=== PATIENT | female | born 1980 | race Caucasian/White ===

== ENCOUNTER → 2016-07-13 | Outpatient (CLI) | payer BC ==
--- NOTE | 2016-07-16 08:22 | MM ---
Reason for exam: clinical finding. Baseline mammogram. History: Patient had first child at age 30. Family history of breast cancer in maternal grandmother. Taking hormonal contraceptives for 5 years beginning at age 30. Physical Findings: Nurse did not find any significant physical abnormalities on exam. MG 3D Diag Mammo W/Cad SHARITA Bilateral CC and MLO view(s) were taken. The breast tissue is heterogeneously dense. This may lower the sensitivity of mammography. There is no discrete abnormality. These results were verbally communicated with the patient and result sheet given to the patient on 07/13/16. ASSESSMENT: Negative, BI-RAD 1 RECOMMENDATION: Routine screening mammogram of both breasts at age 38. Back on schedule. Manage patient on a clinical basis.
== END | disposition home or self-care (01) ==
LOC: RADMAMWWP 13:49
PROVIDERS: ATTEND Family Medicine
DX: N64.52 Nipple discharge (principal)
CPT/HCPCS: G0204; G0279

== ENCOUNTER 2017-07-09 13:52 | Observation (INO) | payer BC ==
[2017-07-09 14:21] VITALS: BP 117/65; PULSE 88; RESP 18; TEMP 97.8
[2017-07-09] MEDS ORDERED: BUTORPHANOL 1 MG/ML 1 ML VIAL IV STA (14:43)
[2017-07-09] MEDS: LACTATED RINGERS 1,000 ML IV SCH ×3 (15:18→19:35)
[2017-07-09] MEDS ORDERED: PROMETHAZINE INJ 25 MG/ML 1 ML VIAL IM STA (16:15)
--- NOTE | 2017-07-09 17:24 | US ---
EXAMINATION TYPE: US kidneys/renal and bladder DATE OF EXAM: 07/09/2017 COMPARISON: KUB CLINICAL HISTORY: US for rt sided flank pain- ? kidney stone; severe right flank pain ; 33 weeks gest ation; prior bilateral renal stones per patient. EXAM MEASUREMENTS: Right Kidney: 11.7 x 7.0 x 6.3 cm Left Kidney: 11.1 x 4.5 x 5.3 cm Post Void Residual Volume: not assessed on patient in [facility] Right Kidney: multiple hyperechoic, shadowing stones seen throughout right kidney with largest at upp er pole = 1.1 x 1.0 x 0.6cm; mild , shadowing focus is noted in lower pole = 0.4 x 0.4 x 0.2cm Bladder: wnl; head of is noted at bladder level Bilateral Jets seen: no, only left ureteral jet was seen after 3 minutes observation IMPRESSION: Bilateral hydronephrosis of right greater than left. Right-sided nephrolithiasis.
[2017-07-09] MEDS ORDERED: NALOXONE 0.4 MG/ML 1 ML VIAL IV PRN (17:25)
[2017-07-09] MEDS: MORPHINE PCA 30 MG/30 ML SYRINGE IV PRN ×2 (18:09→23:26)
[2017-07-09 20:56] VITALS: BMI 27.2
[2017-07-10] MEDS: LACTATED RINGERS 1,000 ML IV SCH (05:26)
--- NOTE | 2017-07-10 08:40 | P.HPOB ---
History of Present Illness H&P Date: 07/10/17 Chief Complaint: Acute nephrolithiasis The patient is a 36-year-old 3 para 1011 admitted at 33-4/7 weeks as established by last menstrual period and confirmed by 6 week ultrasound. She is admitted with acute pain from nephrolithiasis carrying a history of previous episodes. She was seen in the office the day prior to presentation at which time she had some discomfort but the pain significantly increased overnight. As result she presented to the hospital. Attempts to control her pain in triage were unsuccessful and ultrasound did confirm the presence of stones in the ureter. As result, she was admitted for IV hydration aggressively as well as IV pain control. Her has otherwise been uncomplicated though she is in the category of advanced maternal age and had negative screening for trisomy. She additionally is a gestational diabetic and has had very good glycemic control with diet alone thus far. Obstetrical history: 3 para 1011 with 1 term vaginal delivery and one early elective interruption of . Current statistics are listed in history present illness. EDC of 08/23/2017 was established by last menstrual period and confirmed by 6 week ultrasound. Laboratory workup demonstrates a blood type of A+ with a negative antibody screen. Rubella status is immune. All other laboratory workup was within normal limits. Early Glucola was elevated but followed by a normal three-hour glucose tolerance test. Second trimester Glucola was also elevated but followed by an abnormal glucose tolerance test making the diagnosis of gestational diabetes. Clot history: Unremarkable with no history of any infections to include STDs. Review of Systems Review of systems is confined to history of present illness. Past Medical History Additional Past Medical History / Comment(s): Prior Kidney Stones History of Any Multi-Drug Resistant Organisms: None Reported Additional Past Surgical History / Comment(s): Kidney Stone Removed Past Anesthesia/Blood Transfusion Reactions: No Reported Reaction Past Psychological History: Anxiety, Depression Smoking Status: Never smoker Past Alcohol Use History: None Reported Past Drug Use History: None Reported - Past Family History Brother(s) Family Medical History: Cancer Father Family Medical History: Cancer Son(s) Family Medical History: Cancer Medications and Allergies Home Medications Medication Instructions Recorded Confirmed Type Magnesium 200 mg PO DAILY 06/14/17 07/09/17 History 114/Iron A-G/Folate 1 1 each PO DAILY 06/14/17 07/09/17 History [Prenate Elite Tablet] Allergies Allergy/AdvReac Type Severity Reaction Status Date / Time No Known Allergies Allergy Verified 07/09/17 14:12 Exam - Vital Signs Vital signs: Vital Signs Temp Pulse Resp BP Pulse Ox 07/09/17 14:14 97.8 F 88 18 117/65 100 Intake and Output 07/09/17 07/10/17 07/10/17 22:59 06:59 14:59 Output Total 400 300 Balance -400 -300 Output: Urine 400 300 Other: # Voids 1 1 Weight 67.585 kg In general, this is a well-developed, well-nourished white female in no current acute distress. Her heart has a regular rhythm and rate without murmur. Her lungs are clear to auscultation bilaterally in all segura. Her abdomen is gravid, nondistended, has normal active bowel sounds, is soft, nontender, without any palpable masses aside from the uterine fundus. Her extremities are without any cyanosis, clubbing, or edema and are nontender to palpation bilaterally. Her flanks currently have minimal pain bilaterally. Digital cervical examination is deferred. Assessment and Plan (1) 33 weeks gestation of Current Visit: Yes Status: Acute Code(s): Z3A.33 - 33 WEEKS GESTATION OF SNOMED Code(s): 05515697 (2) Ureteral calculus, left Current Visit: No Status: Acute Code(s): N20.1 - CALCULUS OF URETER SNOMED Code(s): 58160501 Plan: The patient had been admitted for aggressive rehydration with intravenous fluids. She additionally was given a SOCK DRIER for pain control. Several hours after admission, she did pass a stone which was caught with a strainer and her pain has significantly improved since that time. She is now able to tolerate a regular diet. She will likely be discharged home if she is able to be up and move around in usual fashion with adequate pain control using only oral pain medications.
--- NOTE | 2017-07-10 08:44 | P.DS ---
Providers Date of admission: 07/09/17 17:15 Expected date of discharge: 07/10/17 Attending physician: Prakash Perez Primary care physician: Stated None - Discharge Diagnosis(es) (1) 33 weeks gestation of Current Visit: Yes Status: Acute (2) Ureteral calculus, left Current Visit: No Status: Acute Hospital Course: The patient is a 36-year-old 3 para 1011 admitted at 33+ weeks by good dating parameters. She is admitted with acute left nephrolithiasis confirmed by ultrasound. She is admitted because her pain is significantly acute and cannot be controlled with simple all pain medications in triage. She was admitted and aggressively hydrated with the IV as well as given a PROFESSOR [employer] GENETICS for pain control. Later in the evening, approximately 4-5 hours after admission, she passed a roughly 4-5 mm stone and had immediate relief of her discomfort. She does still report some flank pain but significantly less so than before and is now tolerating oral medications as well as food. Given the resolution of her pain, she was deemed stable for discharge and therefore discharged home to follow-up in the office as previously scheduled. Discharge instructions included calling for any significantly increasing pain or any other concerns regarding the . She is otherwise to continue to have weekly nonstress test in the office given her gestational diabetes. She understood her instructions and agrees to follow up as noted above. Discharge medications included only continued vitamins during as well as over-the- counter analgesic pain medications. She was provided with a prescription for Tylenol No. 3, 1-2 by mouth every 6 hours when necessary pain, #20 dispensed with no refills. Procedures: #1. IV hydration #2. Renal ultrasound #3. IV pain control Patient Condition at Discharge: Stable Plan - Discharge Summary New Discharge Prescriptions: No Action 114/Iron A-G/Folate 1 [Prenate Elite Tablet] 1 each PO DAILY Magnesium 200 mg PO DAILY Discharge Medication List Magnesium 200 mg PO DAILY 06/14/17 [History] 114/Iron A-G/Folate 1 [Prenate Elite Tablet] 1 each PO DAILY 06/14/17 [ History] Discharge Disposition: HOME SELF-CARE
--- NOTE | 2017-07-10 13:31 | US ---
EXAMINATION TYPE: US OB BPP wo non-stress DATE OF EXAM: 07/10/2017 COMPARISON: NONE CLINICAL HISTORY: 36-year-old female with non reactive heart tones, nephrolithiasis, 33 07/15 wee ks. EXAM PERFORMED: Transabdominal (TA). Real-time scanning and assessment by the machine engineer. FINDINGS: BPP PARAMETERS: PRESENTATION: Vertex LIE: Longitudinal?? HEART RATE: 154 bpm RHYTHM: Normal CELINE: 13.4cm DIAPHRAGM IMAGED: yes BPP SCORIN. Breathin (1 episode of breathing of 30 second duration in 30 minutes of scanning time) 2. Movement: 2 (at least 3 discrete body movements in 30 minutes) 3. Tone: 2 (1 episode of active flexion/extension of limb) 4. CELINE: 2 (CELINE index > 5cm) TOTAL SCORE: 8 / 8 IMPRESSION: 1. Single live intrauterine , establish gestational age 33 weeks 5 days. No growth assessed. 2. BPP score 8 out of 8. 3. heart rate: 154 BPM.
== END 2017-07-10 14:30 | disposition home or self-care (01) ==
LOC: FBPOP 13:52 → 4FBP 17:15
PROVIDERS: ADMIT Obstetrics & Gynecology; ATTEND Obstetrics & Gynecology
DX: O26.833 Pregnancy related renal disease, third trimester (principal); N13.2 Hydronephrosis with renal and ureteral calculous obstruction; O24.410 Gestational diabetes mellitus in pregnancy, diet controlled; O99.343 Other mental disorders complicating pregnancy, third trimester; F32.9 Major depressive disorder, single episode, unspecified; F41.9 Anxiety disorder, unspecified; O09.523 Supervision of elderly multigravida, third trimester; Z3A.33 33 weeks gestation of pregnancy; Z79.899 Other long term (current) drug therapy; Z87.442 Personal history of urinary calculi; Z80.9 Family history of malignant neoplasm, unspecified
CPT/HCPCS: 59025; 96376; 99214; 96361 ×2; 96372; 96374; 96375; 76819; 76770; G0378 ×2; J2550; J0595; J2270

== ENCOUNTER 2017-08-16 06:00 | Inpatient (IN) | payer BC ==
[2017-08-16] MEDS ORDERED: CARBOPROST TROMETHAMINE 250 MCG/ML 1 ML AMP IM PRN (06:29)
[2017-08-16] MEDS ORDERED: LIDOCAINE 1% (PF) 10 MG/ML (30 ML SDV) SQ PRN (06:29)
[2017-08-16] MEDS ORDERED: OXYTOCIN 10 UNIT/ML 1 ML VIAL IM PRN (06:29)
[2017-08-16] MEDS ORDERED: TERBUTALINE 1 MG/ML VIAL SQ PRN (06:29)
[2017-08-16] MEDS ORDERED: METHYLERGONOVINE 0.2 MG/ML 1 ML AMP IM PRN (06:29)
[2017-08-16] MEDS ORDERED: OXYTOCIN 20 UNITS/1000 ML NS 1,000 ML IV SCH ×2 (06:30→21:00)
[2017-08-16 06:35] LABS: Glucose,Whole Blood 81 mg/dL (75-99)
[2017-08-16 06:46] LABS: Basophils % (A) 0 %; Eosinophils # (A) 0.1 k/uL (0-0.7); Eosinophils % (A) 1 %; HCT 39.9 % (34.0-46.0); HGB 13.8 gm/dL (11.4-16.0); Lymphocytes % (A) 22 %; MCH 30.2 pg (25.0-35.0); MCHC 34.6 g/dL (31.0-37.0); MCV 87.2 fL (80.0-100.0); Mean Platelet Volume 8.4; Monocytes # (A) 0.4 k/uL (0-1.0); Monocytes % (A) 4 %; Neutrophils # (A) 6.1 k/uL (1.3-7.7); Neutrophils % (A) 70 %; Platelet Count 158 k/uL (150-450); RBC 4.57 m/uL (3.80-5.40); WBC 8.7 k/uL (3.8-10.6)
[2017-08-16] MEDS: LACTATED RINGERS 1,000 ML IV SCH ×4 (06:48→20:13)
[2017-08-16] MEDS ORDERED: BUTORPHANOL 1 MG/ML 1 ML VIAL IV PRN (09:28)
--- NOTE | 2017-08-16 09:34 | P.HPOB ---
History of Present Illness H&P Date: 08/16/17 Chief Complaint: 39-0/7, LGA, elective induction The patient is a 36-year-old 3 para 1011 admitted at 39-0/7 weeks as established by last menstrual period and confirmed by 6 week ultrasound. She is admitted for elective induction with a large for gestational age fetus measuring at the 96th percentile, estimated weight of 8 pounds and 15 ounces 3 days ago. She is admitted for induction with Pitocin. Her has been complicated by gestational diabetes which was well controlled with diet alone and testing has been reassuring in the third trimester on a weekly basis. She otherwise falls into the category of advanced maternal age and underwent trisomy screening which was negative. Group B strep status is negative. Obstetrical history: 3 para 1011 with 1 previous term vaginal delivery without complications. She also had one early elective interruption of in the past. Current statistics are listed in history present illness. EDC of 08/23/2017 was established by last menstrual period and confirmed by 6 week ultrasound. Laboratory workup demonstrates a blood type of A+ with a negative antibody screen. Rubella status is immune. The remainder of the laboratory workup was within normal limits. Early Glucola was elevated but followed by a normal three-hour glucose tolerance test. Second trimester Glucola was elevated and followed by an abnormal three-hour glucose tolerance test making the diagnosis of gestational diabetes. Group B strep status is positive. Gynecologic history: Unremarkable with no history of any infections to include STDs. Review of Systems Review of systems is confined to history of present illness. Past Medical History Additional Past Medical History / Comment(s): Prior Kidney Stones History of Any Multi-Drug Resistant Organisms: None Reported Additional Past Surgical History / Comment(s): Kidney Stone Removed . wisdom teeth Past Anesthesia/Blood Transfusion Reactions: No Reported Reaction Past Psychological History: Anxiety, Depression Additional Psychological History / Comment(s): during son's illness, not currently Smoking Status: Never smoker Past Alcohol Use History: None Reported Past Drug Use History: None Reported - Past Family History Brother(s) Family Medical History: Cancer Additional Family Medical History / Comment(s): testicular Father Family Medical History: Cancer Additional Family Medical History / Comment(s): mesothelioma Son(s) Family Medical History: Cancer Additional Family Medical History / Comment(s): leukemia Medications and Allergies Home Medications Medication Instructions Recorded Confirmed Type Magnesium 200 mg PO DAILY 06/14/17 08/16/17 History 114/Iron A-G/Folate 1 1 each PO DAILY 06/14/17 08/16/17 History [Prenate Elite Tablet] Allergies Allergy/AdvReac Type Severity Reaction Status Date / Time No Known Allergies Allergy Verified 08/16/17 06:28 Exam - Vital Signs Vital signs: Vital Signs Temp Pulse Resp BP 08/16/17 06:33 97.9 F 91 16 134/80 Intake and Output 08/15/17 08/16/17 08/16/17 22:59 06:59 14:59 Other: Weight 69.4 kg In general, this is a well-developed, well-nourished white female in no acute distress. Her heart has a regular rhythm and rate without murmur. Her lungs are clear to auscultation bilaterally in all segura. Her abdomen is gravid, nondistended, has normal active bowel sounds, is soft, nontender, and without any palpable masses aside from the uterine fundus. Her extremities are without any cyanosis, clubbing, or edema and are nontender to palpation bilaterally. Digital cervical examination demonstrates her cervix to be 2 cm dilated, 50% effaced, the vertex in presentation at -3 station. Artificial rupture of membranes is carried out demonstrating clear fluid. Results Result Diagrams: 08/16/17 06:32 Assessment and Plan (1) Term Current Visit: Yes Status: Acute Code(s): Z34.80 - ENCOUNTER FOR SUPRVSN OF NORMAL , UNSP TRIMESTER SNOMED Code(s): 15891154 (2) Large for gestational age fetus Current Visit: Yes Status: Acute Code(s): RXK8040 - SNOMED Code(s): 621666013 (3) Gestational diabetes Current Visit: Yes Status: Acute Code(s): O24.419 - GESTATIONAL DIABETES MELLITUS IN , UNSP CONTROL SNOMED Code(s): 89585664 Plan: The patient is admitted for elective induction as noted above. Pitocin augmentation has been started and artificial rupture of membranes performed. She will have close maternal and surveillance and expectant management will be practiced. She is a good candidate for either IV or epidural analgesia. She is aware of the slightly increased risk for delivery under the circumstances of elective induction.
[2017-08-16] MEDS ORDERED: SODIUM CHLORIDE 0.9% 100 ML BAG ONE (10:40)
[2017-08-16] MEDS ORDERED: BUPIVACAINE (PF) 0.25% 30 ML VIAL ONE (10:40)
[2017-08-16] MEDS ORDERED: fentaNYL (PF) 50 MCG/ML 5 ML AMP ONE (10:40)
[2017-08-16] MEDS ORDERED: diphenhydrAMINE 50 MG CAP PO PRN (20:55)
[2017-08-16] MEDS ORDERED: LANOLIN CREAM 5 GM TUBE TOPICAL PRN (20:55)
[2017-08-16] MEDS ORDERED: diphenhydrAMINE 25 MG CAP PO PRN (20:55)
[2017-08-16] MEDS ORDERED: SIMETHICONE 80 MG CHEWABLE PO PRN (20:55)
[2017-08-16] MEDS ORDERED: WITCH HAZEL 1 EACH MED..PAD TOPICAL PRN (20:55)
[2017-08-16] MEDS ORDERED: ZOLPIDEM 5 MG TAB PO PRN (20:55)
[2017-08-16] MEDS ORDERED: diphenhydrAMINE 50 MG/ML 1 ML VIAL IVP PRN ×2 (20:55)
[2017-08-16] MEDS ORDERED: BENZOCAINE/MENTHOL SPRAY 1 GM/SPRAY AEROSOL TOPICAL PRN (20:55)
[2017-08-16] MEDS ORDERED: HYDROCORTISONE 2.5% RECTAL CREAM 30 GM TUBE RECTAL PRN (20:55)
--- NOTE | 2017-08-16 21:00 | P.PROBDLV ---
Vaginal Delivery Note - . Vaginal Delivery Note: The patient is a 36-year-old 3 para 1011 admitted at 39-0/7 weeks by good dating parameters. She is admitted for elective induction of labor secondary to gestational diabetes and macrosomia with an estimated weight of 8 lbs. 15 oz. 3 days ago. Her has been complicated only by the gestational diabetes for which she has had reassuring weekly testing since 32 weeks.. She also fell into the category of advanced maternal age and underwent trisomy screening which was negative. On labor and delivery, she had Pitocin augmentation started and underwent artificial rupture of membranes. She had an epidural catheter placed for analgesia just before reaching 4 synovators of dilation. She made slow progress through the latent phase and then remained at 4 cm for a number of hours after which time she progressed very quickly to complete and +2 station. She pushed over the course of approximately 5 minutes to a normal spontaneous vaginal delivery of a viable 8 lbs. 3 oz. baby girl with Apgars of 9 at 1 minute and 9 at 5 minutes delivered in the right occiput anterior position. There was a nuchal cord 1 which was reduced following delivery of the . The placenta was delivered spontaneously, intact, and grossly normal with a grossly normal, centrally inserted three-vessel cord. There was a second-degree midline perineal laceration over the site of a previous laceration which was repaired in standard fashion using 3-0 chromic catgut without difficulty. Estimated blood loss for the case was approximately 250 mL. There were no complications. All sponge, instrument, and needle counts were correct. Both mother and infant are resting comfortably in recovery.
[2017-08-16] MEDS: IBUPROFEN 600 MG TAB PO PRN (21:08)
[2017-08-17] MEDS: ACETAMINOPHEN TAB 325 MG TAB PO PRN ×2 (00:44→09:17)
[2017-08-17] MEDS: IBUPROFEN 600 MG TAB PO PRN ×3 (04:46→20:33)
[2017-08-17] MEDS: SENNOSIDES-DOCUSATE SODIUM 1 EACH TAB PO SCH ×2 (09:18→20:34)
--- NOTE | 2017-08-17 10:05 | P.PNOBGVD ---
Subjective - Subjective Interval history: Bleeding still continues moderately. Patient reports: Reports appetite normal, Reports voiding normally, Reports pain well controlled, Reports ambulating normally : doing well Objective - Latest Vital Signs Latest vital signs: Vital Signs Temp Pulse Resp BP 08/17/17 09:00 98.1 F 88 17 104/61 08/17/17 04:20 98.8 F 100 16 125/70 08/17/17 00:00 98.8 F 88 16 124/74 08/16/17 22:40 97.7 F 108 H 16 132/69 08/16/17 22:10 105 H 16 142/73 08/16/17 21:40 93 16 137/66 08/16/17 21:25 100 16 142/63 08/16/17 21:10 100 16 134/60 08/16/17 20:55 104 H 16 142/63 08/16/17 20:40 98.1 F 97 16 133/59 Intake and Output 08/16/17 08/17/17 08/17/17 22:59 06:59 14:59 Intake Total 36.55 600 Balance 36.55 600 Intake: Intake, IV Titration 36.55 Amount Oxytocin 20 Units/1000 ml 36.55 Ns 1,000 ml @ 1 MILLIUNIT/MIN 3 mls/hr IV .Q24H [facility] Rx#:[id number] Other 600 - Exam Extremities: Present: normal Abdomen: Present: normal appearance, soft Uterus: Present: normal, firm (The uterine fundus as tonic and nontender around the umbilicus.) Assessment and Plan (1) Term Current Visit: Yes Status: Acute Code(s): Z34.80 - ENCOUNTER FOR SUPRVSN OF NORMAL , UNSP TRIMESTER SNOMED Code(s): 96180745 (2) Large for gestational age fetus Current Visit: Yes Status: Acute Code(s): ATH0077 - SNOMED Code(s): 117431951 (3) Gestational diabetes Current Visit: Yes Status: Acute Code(s): O24.419 - GESTATIONAL DIABETES MELLITUS IN , UNSP CONTROL SNOMED Code(s): 31592817 (4) Normal spontaneous vaginal delivery Current Visit: Yes Status: Acute Code(s): O80 - ENCOUNTER FOR FULL-TERM UNCOMPLICATED DELIVERY SNOMED Code(s): 79235438 Plan: Continue routine care. I anticipate discharge home tomorrow pending no complications.
[2017-08-17] MEDS: HYDROcodone/APAP 5-325MG 1 EACH TAB PO PRN ×2 (15:45→23:53)
[2017-08-18] MEDS: IBUPROFEN 600 MG TAB PO PRN ×2 (02:06→10:04)
[2017-08-18] MEDS: SENNOSIDES-DOCUSATE SODIUM 1 EACH TAB PO SCH (09:23)
[2017-08-18 09:30] VITALS: BP 127/77; PULSE 75; RESP 17; TEMP 98.3
--- NOTE | 2017-08-18 11:54 | P.DS ---
Providers Date of admission: 08/16/17 06:17 Expected date of discharge: 08/18/17 Attending physician: Prakash Perez Primary care physician: Stefan Mosquera - Discharge Diagnosis(es) (1) Term Current Visit: Yes Status: Acute (2) Large for gestational age fetus Current Visit: Yes Status: Acute (3) Gestational diabetes Current Visit: Yes Status: Acute (4) Normal spontaneous vaginal delivery Current Visit: Yes Status: Acute Hospital Course: The patient is a 36-year-old 3 para 1011 admitted at 39-0/7 weeks by good dating parameters for an elective induction secondary to large for gestational age fetus along with gestational diabetes. Blood sugars were well- controlled throughout the with diet alone and testing was reassuring throughout. She also fell into the category of advanced maternal age and had a trisomy screening which was negative early in the . On labor and delivery, she had Pitocin started followed by artificial rupture of membranes for clear fluid. She made slow progress through the latent and early active phase of labor with an epidural catheter in place for analgesia. I was some position changes she then made rapid progress to the active phase to complete and +2 station. She pushed quickly to a normal spontaneous vaginal delivery of a viable 8 lbs. 3 oz. baby girl with Apgars of 9 at 1 minute and 9 at 5 minutes. Her course was unremarkable with vital signs remaining stable and her temperature was afebrile throughout. She was deemed stable for discharge on day #2 was discharged home to follow-up in the office in 6 weeks' time routinely. Discharge instructions included calling for any significantly increased bleeding or foul-smelling lochia, significantly increased fever or abdominal pain, perineal complaints, breast complaints, or anything else that concerned her. She was additionally instructed to have nothing in the vagina for at least 6 weeks time to include intercourse. She understood her instructions and agrees to follow-up in 6 weeks' time as noted above. Discharge medications included continued vitamins as she has opted to breast-feed. She was otherwise provided with a prescription for [place] 5/325 mg, 1 by mouth every 4-6 hours when necessary pain, #12 dispensed with no refills. Maternal blood type is A+ and rubella status is immune. Procedures: #1. Pitocin induction #2. Artificial rupture of membranes #3. Epidural analgesia #4. Normal spontaneous vaginal delivery #5. Repair of perineal laceration Patient Condition at Discharge: Good Plan - Discharge Summary New Discharge Prescriptions: No Action 114/Iron A-G/Folate 1 [Prenate Elite Tablet] 1 each PO DAILY Magnesium 200 mg PO DAILY Discharge Medication List Magnesium 200 mg PO DAILY 06/14/17 [History] 114/Iron A-G/Folate 1 [Prenate Elite Tablet] 1 each PO DAILY 06/14/17 [ History] Follow up Appointment(s)/Referral(s): Prakash Perez MD [STAFF PHYSICIAN] - 6 Weeks Discharge Disposition: HOME SELF-CARE
== END 2017-08-18 14:15 | disposition home or self-care (01) | DRG 775 ==
LOC: 4FBP 06:17
PROVIDERS: ADMIT Obstetrics & Gynecology; ATTEND Obstetrics & Gynecology
PROC: 3E0R3NZ Introduction of Analgesics, Hypnotics, Sedatives into Spinal Canal, Percutaneous Approach (ICD-10-PCS; principal; 2017-08-16)
PROC: 10907ZC Drainage of Amniotic Fluid, Therapeutic from Products of Conception, Via Natural or Artificial Opening (ICD-10-PCS; principal; 2017-08-16)
PROC: 00HU33Z Insertion of Infusion Device into Spinal Canal, Percutaneous Approach (ICD-10-PCS; principal; 2017-08-16)
PROC: 10E0XZZ Delivery of Products of Conception, External Approach (ICD-10-PCS; principal; 2017-08-16)
PROC: 0KQM0ZZ Repair Perineum Muscle, Open Approach (ICD-10-PCS; principal; 2017-08-16)
PROC: 3E033VJ Introduction of Other Hormone into Peripheral Vein, Percutaneous Approach (ICD-10-PCS; principal; 2017-08-16)
DX: O36.63X0 Maternal care for excessive fetal growth, third trimester, not applicable or unspecified (principal); O24.420 Gestational diabetes mellitus in childbirth, diet controlled; O69.81X0 Labor and delivery complicated by cord around neck, without compression, not applicable or unspecified; O70.1 Second degree perineal laceration during delivery; Z37.0 Single live birth; Z3A.39 39 weeks gestation of pregnancy; Z87.442 Personal history of urinary calculi; Z80.6 Family history of leukemia
CPT/HCPCS: 85025; 88307

== ENCOUNTER → 2017-10-22 | Outpatient (CLI) | payer BC ==
--- NOTE | 2017-10-22 12:53 | XR ---
EXAMINATION TYPE: XR KUB DATE OF EXAM: 10/22/2017 HISTORY: Pain Comparison: None.Single KUB is submitted for interpretation. Findings: Right renal calculi: Multiple right-sided renal calculi the largest is noted within the upper pole me asuring 9.5 mm. Additional smaller calculi ranging in size from several millimeters up to 3.5 mm. Right ureteral calculi: None Visualized. Left renal calculi: None Visualized. Left ureteral calculi: None Visualized. Pelvic calcifications: None Visualized. Bowel gas pattern is unremarkable. No free air. No mass effects. IMPRESSION: 1. Multiple right-sided renal calculi.
== END | disposition home or self-care (01) ==
LOC: RADXRMAIN 12:26
PROVIDERS: ATTEND Urology
DX: N20.0 Calculus of kidney (principal)
CPT/HCPCS: 74018

== ENCOUNTER → 2017-12-20 | Outpatient (CLI) | payer BC ==
[2017-12-20 11:19] LABS: Basophils % (A) 0 %; Eosinophils # (A) 0.1 k/uL (0-0.7); Eosinophils % (A) 2 %; HCT 44.9 % (34.0-46.0); HGB 14.9 gm/dL (11.4-16.0); Lymphocytes # (A) 1.5 k/uL (1.0-4.8); Lymphocytes % (A) 30 %; MCH 29.3 pg (25.0-35.0); MCHC 33.3 g/dL (31.0-37.0); MCV 88.2 fL (80.0-100.0); Mean Platelet Volume 6.9; Monocytes # (A) 0.2 k/uL (0-1.0); Monocytes % (A) 5 %; Neutrophils % (A) 61 %; Platelet Count 279 k/uL (150-450); RBC 5.09 m/uL (3.80-5.40); RDW 14.3 % (11.5-15.5); WBC 4.9 k/uL (3.8-10.6)
[2017-12-20 11:53] LABS: Potassium 4.6 mmol/L (3.5-5.1)
== END | disposition home or self-care (01) ==
LOC: LABPAT 10:39
PROVIDERS: ATTEND Urology
DX: N20.0 Calculus of kidney (principal)
CPT/HCPCS: 36415; 80051; 82565; 84520; 85025

== ENCOUNTER 2017-12-23 08:17 | Day surgery (SDC) | payer BC ==
[2017-12-17 13:37] VITALS: BMI 23.2
--- NOTE | 2017-12-22 20:19 | P.GSHP ---
History of Present Illness H&P Date: 12/22/17 37 yo femal with right renal stones[8and 4 mm] who comes for eswl SHe recently tao had a cystitis and is on medication The stones dont appear to be infected. She comes for eswl right - Constitutional Constitutional: Denies chills, Denies fever - EENT Eyes: denies blurred vision, denies pain Ears, nose, mouth and throat: Denies headache, Denies sore throat - Cardiovascular Cardiovascular: Denies chest pain, Denies shortness of breath - Respiratory Respiratory: Denies cough, Denies 7 - Gastrointestinal Gastrointestinal: Denies abdominal pain, Denies diarrhea, Denies nausea, Denies vomiting - Genitourinary (Female) Genitourinary: Denies dysuria, Denies hematuria - Genitourinary (Male) Genitourinary: Denies dysuria, Denies hematuria - Musculoskeletal Musculoskeletal: Denies myalgias - Integumentary Integumentary: Denies pruritus, Denies rash - Neurological Neurological: Denies numbness, Denies weakness - Psychiatric Psychiatric: Denies anxiety, Denies depression - Endocrine Endocrine: Denies fatigue, Denies weight change Past Medical History Additional Past Medical History / Comment(s): Kidney Stones, current "bladder infection" with antibiotic tx History of Any Multi-Drug Resistant Organisms: None Reported Additional Past Surgical History / Comment(s): Kidney Stone Removed , lithotripsy. wisdom teeth Past Anesthesia/Blood Transfusion Reactions: No Reported Reaction Smoking Status: Never smoker - Past Family History Brother(s) Family Medical History: Cancer Additional Family Medical History / Comment(s): testicular Father Family Medical History: Cancer Additional Family Medical History / Comment(s): mesothelioma Son(s) Family Medical History: Cancer Additional Family Medical History / Comment(s): leukemia Medications and Allergies Home Medications Medication Instructions Recorded Confirmed Type 114/Iron A-G/Folate 1 1 each PO DAILY 06/14/17 12/17/17 History [Prenate Elite Tablet] Sharovel ( Control) 1 tab PO DAILY 12/17/17 12/17/17 History Sulfamethox-Tmp 800-160Mg [Bactrim 1 tab PO Q12HR 12/17/17 12/17/17 History DS 800-160 mg] Allergies Allergy/AdvReac Type Severity Reaction Status Date / Time No Known Allergies Allergy Verified 12/17/17 13:24 Surgical - Exam - General well developed, well nourished, no distress - ENT no hearing loss - Neck trachea midline - Respiratory normal expansion, normal respiratory effort - Cardiovascular Rhythm: regular - Abdomen Abdomen: soft, non tender - Integumentary no rash, no growths - Neurologic normal coordination, normal sensation - Musculoskeletal normal gait, normal posture - Psychiatric oriented to time, oriented to person, oriented to place, speech is normal, memory intact Assessment and Plan Assessment: Impression: Rightrenal calculi PlN : ESWL RIGHT
[~2017-12-23 08:17] MED LIST: LACTATED RINGERS 1,000 ML IV SCH; LIDOCAINE 1% 20 ML VIAL (10MG/ML) FOR IV START INTRADERMA PRN; Pre Op ABX Message 1 EACH MISC MISCELLANE ONE
[2017-12-23 08:52] VITALS: TEMP 98.5
[2017-12-23] MEDS ORDERED: ONDANSETRON 4 MG/2 ML VIAL IVP ONE (09:07)
[2017-12-23] MEDS ORDERED: DEXAMETHASONE SOD PHOSPHATE 10 MG/ML 1 ML VIAL IV ONE (09:07)
--- NOTE | 2017-12-23 09:21 | XR ---
EXAMINATION TYPE: XR KUB DATE OF EXAM: 12/23/2017 CLINICAL DATA: 37-year-old female preop lithotripsy for right kidney stone, [facility] COMPARISON: 10/22/2017 FINDINGS: Lung bases are clear. Supine imaging limited for assessment of free intraperitoneal air. Nonobstructive bowel gas pattern. Mild stool burden. Phleboliths redemonstrated in the pelvis. There are 2 calcifications in the right mid abdomen, unchan ged from 10/22/2017 measuring 1 cm and 3 mm. Possible 3 mm calcification left mid abdomen. IMPRESSION: Stable right-sided renal calculi measuring up to 1 cm. Possible 3 mm left renal calculus.
[2017-12-23] MEDS ORDERED: fentaNYL (PF) 50 MCG/ML 2 ML AMP ONE (09:28)
[2017-12-23] MEDS ORDERED: PROPOFOL 10 MG/ML 20 ML VIAL IV ONE (09:28)
[2017-12-23] MEDS ORDERED: MIDAZOLAM 2 MG/2 ML VIAL ONE (09:28)
--- NOTE | 2017-12-23 10:12 | P.OP ---
Date of Procedure: 12/23/17 Preoperative Diagnosis: Right renal calculus Postoperative Diagnosis: Right renal calculus Procedure(s) Performed: Extracorporal shock wave lithotripsy Anesthesia: MAC Surgeon: Charles Moreno Estimated Blood Loss (ml): 0 Pathology: none sent Condition: stable Disposition: PACU Indications for Procedure: The patient is a 37 year old female with urolithiasis who was noted to have two right renal calculi measuriing 8x10 and 4x4 mm on renal ultrasound and KUB. Treatment options were reviewed with Dr Fox and ESWL has been chosen. Description of Procedure: The patient was taken to the fluoroscopy suite and placed in the supine position on the fluoroscopy table. The 8x10 mm calculus which was located in the right renal pelvis was localized with biplanar fluoroscopy. Intravenous sedation was given. Lithotripsy was performed with the [employer] Compact Delta II unit. A two minute pause was taken after 200 shocks. The patient received 2500 shockes at level 4 at a rate of 80 shocks/minute. There appeared to be fragmentation of the calculus. The anesthesia was reversed and the patient was taken to the recovery room in satisfactory condition. She will see Dr Fox in 2 weeks at which time a KUB will be performed.
[2017-12-23] MEDS ORDERED: LACTATED RINGERS 1,000 ML IV ONE (10:16)
[2017-12-23 10:23] VITALS: RESP 18
[2017-12-23] MEDS ORDERED: HYDROcodone/APAP 5-325MG 1 EACH TAB PO ONE (10:42)
[2017-12-23 10:50] VITALS: BP 106/69; PULSE 69
== END 2017-12-23 11:30 | disposition home or self-care (01) ==
LOC: ORWHC2ENDO 08:17
PROVIDERS: ATTEND Urology
DX: N20.0 Calculus of kidney (principal); N30.90 Cystitis, unspecified without hematuria; Z79.2 Long term (current) use of antibiotics; Z79.3 Long term (current) use of hormonal contraceptives
CPT/HCPCS: 81025; 74018; 50590; J2250; J1100; J2405; J3010; J2704

== ENCOUNTER → 2017-12-30 | Outpatient (CLI) | payer BC ==
--- NOTE | 2017-12-30 09:35 | XR ---
EXAMINATION TYPE: XR abdomen 1V DATE OF EXAM: 12/30/2017 HISTORY: Pain Comparison: 12/23/2017 Single KUB is submitted for interpretation. Findings: Right renal calculi: Previously noted right renal calculus measuring approximately 1 cm is no longer visualized. Overlying bowel content does limit evaluation. There appear to be fragmented calculi dist al right ureter measuring up to 4 mm. Right ureteral calculi: None Visualized. Left renal calculi: None Visualized. Left ureteral calculi: None Visualized. Pelvic calcifications: None Visualized. Bowel gas pattern is unremarkable. No free air. No mass effects. IMPRESSION: 1. Previously noted right renal calculus measuring approximately 1 cm is no longer visualized. [place] ing bowel content does limit evaluation. There appear to be fragmented calculi distal right ureter me asuring up to 4 mm.
== END | disposition home or self-care (01) ==
LOC: RADXRMAIN 09:13
PROVIDERS: ATTEND Urology
DX: N20.0 Calculus of kidney (principal)
CPT/HCPCS: 74018

== ENCOUNTER → 2018-01-14 | Outpatient (CLI) | payer BC ==
--- NOTE | 2018-01-14 12:54 | XR ---
EXAMINATION TYPE: XR abdomen 1V DATE OF EXAM: 01/14/2018 COMPARISON: 12/30/2017 INDICATION: Right ureteral stoner TECHNIQUE: Single view abdomen frontal projection FINDINGS: There is a normal bowel gas pattern. Psoas margins are normal. No organomegaly is present. A 0.5 cm calcification in the right hemipelvis appears stable in position. IMPRESSION: 1. Right hemipelvis distal ureteral stone suspected.
== END | disposition home or self-care (01) ==
LOC: RADXRMAIN 12:31
PROVIDERS: ATTEND Urology
DX: N20.1 Calculus of ureter (principal)
CPT/HCPCS: 74018

== ENCOUNTER 2019-07-09 06:15 | Inpatient (IN) | payer BC ==
[2019-07-09] MEDS ORDERED: OXYTOCIN 30 UNITS/500 ML NS 30 UNIT in SALINE 1 500ML.BAG IV SCH (06:45)
[2019-07-09] MEDS ORDERED: TERBUTALINE 1 MG/ML VIAL SQ PRN (06:45)
[2019-07-09] MEDS ORDERED: LIDOCAINE 0.5% (PF) 5 MG/ML (50 ML SDV) SQ PRN (06:45)
[2019-07-09] MEDS ORDERED: CARBOPROST TROMETHAMINE 250 MCG/ML 1 ML AMP IM PRN (06:45)
[2019-07-09] MEDS ORDERED: OXYTOCIN 10 UNIT/ML 1 ML VIAL IM PRN (06:45)
[2019-07-09] MEDS ORDERED: METHYLERGONOVINE 0.2 MG/ML 1 ML AMP IM PRN (06:45)
[2019-07-09] MEDS: LACTATED RINGERS 1,000 ML IV SCH ×3 (07:00→12:50)
[2019-07-09 07:25] LABS: Basophils % (A) 0 %; Eosinophils # (A) 0.1 k/uL (0-0.7); Eosinophils % (A) 1 %; HCT 41.4 % (34.0-46.0); Lymphocytes # (A) 2.4 k/uL (1.0-4.8); Lymphocytes % (A) 29 %; MCH 30.9 pg (25.0-35.0); MCHC 33.9 g/dL (31.0-37.0); MCV 91.1 fL (80.0-100.0); Mean Platelet Volume 8.4; Monocytes # (A) 0.4 k/uL (0-1.0); Monocytes % (A) 5 %; Neutrophils # (A) 5.1 k/uL (1.3-7.7); Neutrophils % (A) 62 %; Platelet Count 173 k/uL (150-450); RBC 4.54 m/uL (3.80-5.40); RDW 14.1 % (11.5-15.5); WBC 8.2 k/uL (3.8-10.6)
[2019-07-09] MEDS ORDERED: BUTORPHANOL 1 MG/ML 1 ML VIAL IV PRN (08:41)
--- NOTE | 2019-07-09 08:46 | P.HPOB ---
History of Present Illness H&P Date: 07/09/19 Chief Complaint: 39-5/7 weeks, suspected macrosomia, induction The patient is a 38-year-old 4 para 2011 admitted at 39-5/7 weeks as established by last menstrual. And confirmed by seven-week ultrasound per she is admitted for elective induction secondary to suspected macrosomia of with estimated weight at the 97th percentile at 34+ weeks. Her has otherwise been entirely uncomplicated. She does fall into the category of advanced maternal age and did undergo trisomy testing which was negative. She carries a history of previous gestational diabetes but was negative for is findings during this . Group B strep status is negative. Obstetrical history: 4 para 2011 with 2 previous normal spontaneous vaginal deliveries and 1 miscarriage. EDC of 07/11/2019 was established by last menstrual period and confirmed by seven-week ultrasound. statistics are listed in history of present illness. Laboratory workup demonstrates a blood type of A+ with a negative antibody screen. Rubella status is immune. T he remainder of laboratory workup was within normal limits. Early Glucola was elevated but followed by a normal three-hour glucose tolerance test. Second trimester Glucola was within normal limits. Group B strep status is negative. Gynecologic history: Unremarkable with no history of any infections to include STDs. Review of Systems Review of systems is confined to history of present illness. Past Medical History Additional Past Medical History / Comment(s): Prior Kidney Stones History of Any Multi-Drug Resistant Organisms: None Reported Additional Past Surgical History / Comment(s): Kidney Stone Removed . wisdom teeth Past Anesthesia/Blood Transfusion Reactions: No Reported Reaction Past Psychological History: Anxiety, Depression Additional Psychological History / Comment(s): during son's illness, not currently Smoking Status: Never smoker Past Alcohol Use History: None Reported Past Drug Use History: None Reported - Past Family History Brother(s) Family Medical History: Cancer Additional Family Medical History / Comment(s): testicular Father Family Medical History: Cancer Additional Family Medical History / Comment(s): mesothelioma Son(s) Family Medical History: Cancer Additional Family Medical History / Comment(s): leukemia Medications and Allergies Home Medications Medication Instructions Recorded Confirmed Type 114/Iron A-G/Folate 1 1 each PO DAILY 06/14/17 07/09/19 History [Prenate Elite Tablet] Allergies Allergy/AdvReac Type Severity Reaction Status Date / Time No Known Allergies Allergy Verified 12/23/17 08:52 Exam Vital Signs Temp Pulse Resp BP 07/09/19 06:43 98.1 F 93 16 115/69 Intake and Output 07/08/19 07/09/19 07/09/19 22:59 06:59 14:59 Other: Weight 68.946 kg In general, this is a well-developed, well-nourished white female in no acute distress. Her heart has a regular rhythm and rate without murmur. Her lungs are clear to auscultation bilaterally in all segura. Her abdomen is gravid, nondistended, has normal active bowel sounds, is soft, nontender, and without any palpable masses aside from uterine fundus. Her extremities without any cyanosis, clubbing, or significant edema and are nontender to palpation bilaterally. Digital cervical examination on straights her cervix to be 2+ centimeters dilated, 50% effaced, the vertex in presentation at -3 station. Artificial rupture of membranes is carried out demonstrating lightly meconium- stained fluid. Results Result Diagrams: 07/09/19 06:45 Assessment and Plan (1) Large for gestational age fetus Current Visit: No Status: Acute Code(s): [id number] - SNOMED Code(s): 446981621 (2) Term Current Visit: No Status: Acute Code(s): Z34.80 - ENCOUNTER FOR SUPRVSN OF NORMAL , UNSP TRIMESTER SNOMED Code(s): 81136739 Plan: The patient has been admitted for induction of labor. Pitocin augmentation has been started and she has undergone artificial rupture of membranes. She is a good candidate for either IV or epidural analgesia, whichever she may choose. She will continue to have close maternal and surveillance and expectant management will be practiced.
[2019-07-09] MEDS ORDERED: SODIUM CHLORIDE 0.9% 100 ML BAG ONE (12:49)
[2019-07-09] MEDS ORDERED: ROPIVACAINE 5MG/ML 20ML VIAL ONE (12:49)
[2019-07-09] MEDS ORDERED: fentaNYL (PF) 50 MCG/ML 5 ML AMP ONE (12:49)
[2019-07-09] MEDS ORDERED: WITCH HAZEL 1 EACH MED..PAD TOPICAL PRN (16:20)
[2019-07-09] MEDS ORDERED: LANOLIN CREAM 5 GM TUBE TOPICAL PRN (16:20)
[2019-07-09] MEDS ORDERED: diphenhydrAMINE 50 MG CAP PO PRN (16:20)
[2019-07-09] MEDS ORDERED: HYDROcodone/APAP 5-325MG 1 EACH TAB PO PRN (16:20)
[2019-07-09] MEDS ORDERED: diphenhydrAMINE 25 MG CAP PO PRN (16:20)
[2019-07-09] MEDS ORDERED: HYDROCORTISONE 2.5% RECTAL CREAM 30 GM TUBE RECTAL PRN (16:20)
[2019-07-09] MEDS ORDERED: SIMETHICONE 80 MG CHEWABLE PO PRN (16:20)
[2019-07-09] MEDS ORDERED: BENZOCAINE/MENTHOL SPRAY 1 GM/SPRAY AEROSOL TOPICAL PRN (16:20)
[2019-07-09] MEDS ORDERED: ACETAMINOPHEN TAB 325 MG TAB PO PRN (16:20)
[2019-07-09] MEDS ORDERED: diphenhydrAMINE 50 MG/ML 1 ML VIAL IVP PRN ×2 (16:20)
[2019-07-09] MEDS ORDERED: ZOLPIDEM 5 MG TAB PO PRN (16:20)
--- NOTE | 2019-07-09 16:24 | P.PROBDLV ---
Vaginal Delivery Note - . Vaginal Delivery Note: The patient is a 38-year-old 4 para 2011 admitted at 39-5/7 weeks by good dating parameters. She is admitted for elective induction of labor secondary to suspected macrosomia with growth at greater than 97th percentile around 35 weeks. Her has otherwise been uncomplicated though she does fall into the category of advanced maternal age and did undergo trisomy testing which was negative. Group B strep status is negative. On labor and delivery, all signs reassuring with a category 1 tracing. She had Pitocin augmentation started followed by R [place] rupture of membranes for lightly meconium-stained fluid. She made progress to the active phase of labor and had an epidural catheter placed for analgesia. She then made fairly quick progress through the active phase of labor to complete and pushed over the course of 2 contractions to a normal spontaneous vaginal delivery of a viable 8 lbs. 13 oz. baby girl with Apgars of 9 at 1 minute and 9 at 5 minutes delivered in the direct occiput anterior position. The placenta was delivered spontaneously, intact, and grossly normal with a grossly normal, centrally inserted three-vessel cord. There was a small second-degree midline perineal laceration over the site of a previous laceration which was repaired in standard fashion using 3-0 chromic catgut without difficulty. Estimated blood loss for the case is approximately 150 mL. There were no compilations. All sponge, instrument, and needle counts were correct. Both mother and infant are resting comfortably in recovery.
[2019-07-09] MEDS ORDERED: OXYTOCIN 20 UNITS/1000 ML NS 1,000 ML IV SCH (16:30)
[2019-07-09] MEDS: IBUPROFEN 600 MG TAB PO PRN ×2 (18:01→23:33)
[2019-07-09] MEDS: SENNOSIDES-DOCUSATE SODIUM 1 EACH TAB PO SCH (19:56)
[2019-07-09 21:36] VITALS: RESP 16
[2019-07-10] MEDS: IBUPROFEN 600 MG TAB PO PRN ×2 (05:35→11:27)
[2019-07-10] MEDS: HYDROcodone/APAP 7.5-325MG 1 EACH TAB PO PRN ×2 (09:09→15:59)
[2019-07-10] MEDS: SENNOSIDES-DOCUSATE SODIUM 1 EACH TAB PO SCH (09:09)
--- NOTE | 2019-07-10 12:20 | P.DS ---
Providers Date of admission: 07/09/19 06:30 Expected date of discharge: 07/10/19 Attending physician: Prakash Perez Primary care physician: Stated None - Discharge Diagnosis(es) (1) Large for gestational age fetus Current Visit: Yes Status: Acute (2) Term Current Visit: Yes Status: Acute (3) Normal spontaneous vaginal delivery Current Visit: No Status: Acute Hospital Course: The patient is a 38-year-old 4 para 2011 admitted at 39-5/7 weeks by good dating parameters. She is admitted for an elective induction secondary to suspected macrosomia with growth at greater than 97th percentile. She did fall into the category of advanced maternal age and had testing for trisomy which was negative. Otherwise her was uncomplicated and group B strep status is negative. On labor and delivery, she had Pitocin started followed by artificial rupture of membranes demonstrating lightly meconium-stained fluid. She had an epidural catheter placed her on the onset of the active phase of labor and progressed to complete after which time she pushed quickly to a normal spontaneous vaginal delivery of a viable 8 lbs. 13 oz. baby girl with Apgars of 9 at 1 minute and 9 at 5 minutes. Her course was unremarkable with vital signs remaining stable and her temperature was afebrile throughout. She was deemed stable for discharge on day #1 was discharged home to follow-up in the office in 6 weeks' time routinely. Discharge instructions included calling for any significantly increased bleeding or foul-smelling lochia, significantly increased fever a bdominal pain, perineal complaints, breast complaints, or anything else that concerned her. She was additionally instructed to have nothing in the vagina for 6 weeks time to include intercourse. She understood her instructions and agrees to follow up as noted above. Discharge medications included continued vitamins as she has opted to breast-feed. She otherwise was provided with prescription at her request for Tylenol 3, 1-2 by mouth every 6 hours when necessary pain, #12 dispensed with no refills. She will otherwise use [id number] analgesic pain medications. Maternal blood type is A+ and rubella status is immune. Procedures: #1. Pitocin induction #2. Artificial rupture of membranes #3. Epidural analgesia #4. Normal spontaneous vaginal delivery #5. Repair of perineal laceration Patient Condition at Discharge: Good Plan - Discharge Summary New Discharge Prescriptions: No Action 114/Iron A-G/Folate 1 [Prenate Elite Tablet] 1 each PO DAILY Discharge Medication List 114/Iron A-G/Folate 1 [Prenate Elite Tablet] 1 each PO DAILY 06/14/17 [History] Follow up Appointment(s)/Referral(s): Prakash Perez MD [STAFF PHYSICIAN] - 6 Weeks Discharge Disposition: HOME SELF-CARE
[2019-07-10 16:38] VITALS: BP 130/73; PULSE 73; TEMP 98.7
== END 2019-07-10 17:15 | disposition home or self-care (01) | DRG 807 ==
LOC: 4FBP 06:30
PROVIDERS: ADMIT Obstetrics & Gynecology; ATTEND Obstetrics & Gynecology
PROC: 10E0XZZ Delivery of Products of Conception, External Approach (ICD-10-PCS; principal; 2019-07-09)
PROC: 0KQM0ZZ Repair Perineum Muscle, Open Approach (ICD-10-PCS; principal; 2019-07-09)
PROC: 10907ZC Drainage of Amniotic Fluid, Therapeutic from Products of Conception, Via Natural or Artificial Opening (ICD-10-PCS; principal; 2019-07-09)
PROC: 3E033VJ Introduction of Other Hormone into Peripheral Vein, Percutaneous Approach (ICD-10-PCS; principal; 2019-07-09)
DX: O36.63X0 Maternal care for excessive fetal growth, third trimester, not applicable or unspecified (principal); Z37.0 Single live birth; O70.1 Second degree perineal laceration during delivery; O77.0 Labor and delivery complicated by meconium in amniotic fluid; Z3A.39 39 weeks gestation of pregnancy; Z87.442 Personal history of urinary calculi; Z86.32 Personal history of gestational diabetes; Z86.59 Personal history of other mental and behavioral disorders; Z80.6 Family history of leukemia; Z80.43 Family history of malignant neoplasm of testis; Z80.8 Family history of malignant neoplasm of other organs or systems
CPT/HCPCS: 85025; 86850; 86900; 86901

== ENCOUNTER → 2019-08-12 | Outpatient (CLI) | payer BC ==
--- NOTE | 2019-08-12 14:18 | XR ---
EXAMINATION TYPE: XR abdomen 1V DATE OF EXAM: 08/12/2019 2:13 PM CLINICAL HISTORY: History of kidney stones with recently passed stone in May for patient. TECHNIQUE: Two supine KUB images of the abdomen are obtained. COMPARISON: Abdominal x-ray May 14, 2017. CT abdomen and pelvis July 15, 2013. FINDINGS: There is now 9 mm calculus upper to mid pole of the right kidney superior L3 level. There a re suspected 2 adjacent lower pole left renal calculi up to 5 mm in size at same L3 level. Left pelvi c 2 to 3 mm density favors phlebolith is stable. Spina bifida defect L5 level left of midline incidentally noted. Overall nonobstructive bowel gas pat tern. IMPRESSION: As above.
== END | disposition home or self-care (01) ==
LOC: RADXRMAIN 13:54
PROVIDERS: ATTEND Urology
DX: N20.0 Calculus of kidney (principal); N28.89 Other specified disorders of kidney and ureter
CPT/HCPCS: 74018

== ENCOUNTER → 2019-08-20 | Outpatient (CLI) | payer BC ==
--- NOTE | 2019-08-20 12:40 | CT ---
EXAMINATION TYPE: CT abdomen pelvis wo con DATE OF EXAM: 08/20/2019 COMPARISON: 07/15/2013 HISTORY: 38-year-old female Known renal stones, recurrent UTI CT DLP: 235.8 mGycm. Automated exposure control for dose reduction was used. TECHNIQUE: Contiguous axial scanning of the abdomen and pelvis without IV contrast. Coronal and sagit sabrina reconstructions performed. FINDINGS: Heart normal size without pericardial effusion. Visualized lung bases clear without pleural effusion. The extreme right hepatic dome and upper pole of the spleen are excluded from view. Otherwise, noncontrast liver, gallbladder, adrenal glands, spleen, and pancreas shows no gross abnorm ality. Tiny fatty umbilical hernia. No dilated small bowel, free fluid, or free air. No mesenteric or retroperitoneal lymphadenopathy identified by noncontrast technique. Moderate stool burden. No pericolonic inflammatory change. 8 mm nonobstructive right upper pole renal calculus. 4 mm nonobstructive left lower pole renal calculus. No hydronephrosis. No suspicious calcifications seen along the course of either ureter. Bladder nondistended but shows mild circumferential wall thickening. Uterus retroverted. Neither ovar y clearly delineated from adjacent clustered bowel loops. No abnormal fluid collection seen in the pe lvis. Bones: Mild facet arthropathy lower lumbar spine. Right L5 pars defect. No spondylolisthesis. There i s some sclerosis at the left pars interarticularis. IMPRESSION: 1. 8 mm nonobstructive right and 4 mm nonobstructive left renal calculi. No hydronephrosis. 2. Most of her potential bladder wall thickening may relate to incomplete distention or cystitis. Cl inically correlate. 3. Right L5 pars defect. There is sclerosis of the left pars defect could represent stress reaction. No spondylolisthesis.
== END | disposition home or self-care (01) ==
LOC: RADCTMAIN 11:26
PROVIDERS: ATTEND Urology
DX: N20.0 Calculus of kidney (principal); N32.89 Other specified disorders of bladder
CPT/HCPCS: 74176; 82365

== ENCOUNTER 2020-01-22 22:20 | Emergency (ER) | payer BC ==
[2020-01-22] MEDS ORDERED: HYDROmorphone 0.5 MG/0.5 ML SYRINGE IVP STA (23:23)
[2020-01-22] MEDS ORDERED: ONDANSETRON 4 MG/2 ML VIAL IVP STA (23:23)
[2020-01-22] MEDS ORDERED: KETOROLAC 15 MG/ML 1 ML VIAL IVP STA (23:23)
[2020-01-22] MEDS ORDERED: SODIUM CHLORIDE 0.9% 1,000 ML IV STA (23:23)
[2020-01-22 23:54] LABS: Basophils % (A) 1 %; Eosinophils # (A) 0.1 k/uL (0-0.7); Eosinophils % (A) 1 %; HCT 41.2 % (34.0-46.0); HGB 14.6 gm/dL (11.4-16.0); Lymphocytes # (A) 1.6 k/uL (1.0-4.8); Lymphocytes % (A) 23 %; MCH 31.4 pg (25.0-35.0); MCHC 35.4 g/dL (31.0-37.0); MCV 88.6 fL (80.0-100.0); Mean Platelet Volume 6.9; Monocytes # (A) 0.3 k/uL (0-1.0); Monocytes % (A) 4 %; Neutrophils % (A) 71 %; Platelet Count 207 k/uL (150-450); RBC 4.65 m/uL (3.80-5.40); RDW 12.5 % (11.5-15.5)
[2020-01-23 00:01] LABS: Appearance,Urine Clear (Clear); Bacteria,Urine Moderate /hpf; Bilirubin,Urine Negative (Negative); Blood,Urine Negative (Negative); Color,Urine Colorless; Glucose,Urine (UA) Negative (Negative); Ketones,Urine Negative (Negative); Leukocyte Esterase,Urine Moderate (Negative); Mucus,Urine Rare /hpf; Nitrite,Urine Negative (Negative); PH, Urine 6.5 (5.0-8.0); Protein,Urine Negative (Negative); Specific Gravity,Urine 1.006 (1.001-1.035); Urobilinogen,Urine <2.0 mg/dL (<2.0); WBC,Urine 5 /hpf (0-5)
[2020-01-23 00:07] LABS: Albumin 4.3 g/dL (3.5-5.0); Calcium 9.5 mg/dL (8.4-10.2); Potassium 3.8 mmol/L (3.5-5.1); Total Bilirubin 0.4 mg/dL (0.2-1.3); Total Protein 6.8 g/dL (6.3-8.2)
--- NOTE | 2020-01-23 00:47 | XR ---
EXAM: XR Abdomen, 1 View CLINICAL HISTORY: ITS.REASON XR Reason: abdominal pain TECHNIQUE: Frontal supine view of the abdomen/pelvis. COMPARISON: August 12, 2019 FINDINGS: Intraperitoneal space: No pneumoperitoneum is seen under the diaphragm. Gastrointestinal tract: Moderate amount of gas and stool throughout the nondilated colon. No dilated small bowel loops are seen. Organs: Previously seen renal calculi no longer visible. Bones/joints: Unremarkable. IMPRESSION: There is pattern appears within normal limits. Previously seen renal calculi are no longer visible.
[2020-01-23] MEDS ORDERED: SODIUM CHLORIDE 0.9% 1,000 ML IV ONE (01:08)
[2020-01-23] MEDS ORDERED: IBUPROFEN 600 MG STARTER PACK 4 TAB BTL PO STA (01:17)
[2020-01-23] MEDS ORDERED: ACET/COD 300 MG/30 MG STARTER PACK 6 TAB BTL PO STA (01:17)
[2020-01-23] MEDS ORDERED: TAMSULOSIN 0.4 MG CAP.ER.24H PO STA (01:17)
[2020-01-23 01:18] VITALS: PULSE 90; RESP 18
--- NOTE | 2020-01-23 01:19 | ED ---
General Adult HPI - General Chief complaint: Back Pain/Injury Stated complaint: Poss kidney stone, Poss covid Time Seen by Provider: 01/22/20 22:53 Source: patient Mode of arrival: ambulatory Limitations: no limitations - History of Present Illness Initial comments: 39-year-old female patient presents to the emergency department today for evaluation of right flank pain. Patient states the pain started approximately 5 or 6 hours ago. States that she does have a history of kidney stones and this feels similar. She denies any hematuria, dysuria, urinary frequency, urinary urgency. Denies any nausea or vomiting. Denies fever or chills. She denies history of abdominal surgery. Denies chance of . Patient denies any recent rash, cough, shortness of breath, chest pain, diarrhea, constipation, back pain, numbness, tingling, dizziness, weakness, headache, visual changes, or any other complaints. - Related Data Home Medications Medication Instructions Recorded Confirmed 114/Iron A-G/Folate 1 1 each PO DAILY 06/14/17 07/09/19 [Prenate Elite Tablet] Allergies Allergy/AdvReac Type Severity Reaction Status Date / Time No Known Allergies Allergy Verified 01/22/20 22:29 Review of Systems ROS Statement: Those systems with pertinent positive or pertinent negative responses have been documented in the HPI. ROS Other: All systems not noted in ROS Statement are negative. Past Medical History Additional Past Medical History / Comment(s): Prior Kidney Stones History of Any Multi-Drug Resistant Organisms: None Reported Additional Past Surgical History / Comment(s): Kidney Stone Removed . wisdom teeth Past Anesthesia/Blood Transfusion Reactions: No Reported Reaction Past Psychological History: Anxiety, Depression Smoking Status: Never smoker Past Alcohol Use History: None Reported Past Drug Use History: None Reported - Past Family History Brother(s) Family Medical History: Cancer Additional Family Medical History / Comment(s): testicular Father Family Medical History: Cancer Additional Family Medical History / Comment(s): mesothelioma Son(s) Family Medical History: Cancer Additional Family Medical History / Comment(s): leukemia General Exam Limitations: no limitations General appearance: alert, in no apparent distress, other ENT exam: Present: normal exam, normal oropharynx, mucous membranes moist Respiratory exam: Present: normal lung sounds bilaterally. Absent: respiratory distress, wheezes, rales, rhonchi, stridor Cardiovascular Exam: Present: regular rate, normal rhythm, normal heart sounds. Absent: systolic murmur, diastolic murmur, rubs, gallop, clicks GI/Abdominal exam: Present: soft, normal bowel sounds. Absent: distended, tenderness, guarding, rebound, rigid Back exam: Present: normal inspection, CVA tenderness (R). Absent: CVA tenderness (L) Neurological exam: Present: alert, oriented X3, CN II-XII intact Psychiatric exam: Present: normal affect, normal mood Skin exam: Present: warm, dry, intact, normal color. Absent: rash Course Vital Signs 01/22/20 01/23/20 22:25 01:16 Temperature 97.3 F L Pulse Rate 91 90 Respiratory 16 18 Rate Blood Pressure 160/97 125/81 O2 Sat by Pulse 99 98 Oximetry Medical Decision Making - Medical Decision Making 39-year-old female patient presents to the emergency department today for evaluation of right flank pain. She has history of kidney stone states this feels similar. Physical examination did reveal soft nontender abdomen. She did have some mild right CVA tenderness. She is afebrile with normal vital signs. Urinalysis is unremarkable. Labs reviewed and did reveal acute kidney injury. She was given 2 L of IV fluids. She was given IV pain medications. Upon reevaluation she does report improvement of symptoms. We did discuss likelihood of kidney stone causing her symptoms. She'll be discharged follow-up with urology and her primary care physician for recheck. Return parameters were discussed in detail. She verbalizes understanding and agrees with this plan. - Lab Data Result diagrams: 01/22/20 23:25 01/22/20 23:33 Lab Results 01/22/20 01/22/20 01/22/20 Range/Units 23:25 23:33 23:33 WBC 7.0 (3.8-10.6) k/uL RBC 4.65 (3.80-5.40) m/uL Hgb 14.6 (11.4-16.0) gm/dL Hct 41.2 (34.0-46.0) % MCV 88.6 (80.0-100.0) fL MCH 31.4 (25.0-35.0) pg MCHC 35.4 (31.0-37.0) g/dL RDW 12.5 (11.5-15.5) % Plt Count 207 (150-450) k/uL MPV 6.9 Neutrophils % 71 % Lymphocytes % 23 % Monocytes % 4 % Eosinophils % 1 % Basophils % 1 % Neutrophils # 5.0 (1.3-7.7) k/uL Lymphocytes # 1.6 (1.0-4.8) k/uL Monocytes # 0.3 (0-1.0) k/uL Eosinophils # 0.1 (0-0.7) k/uL Basophils # 0.0 (0-0.2) k/uL Sodium (137-145) mmol/L Potassium (3.5-5.1) mmol/L Chloride (98-107) mmol/L Carbon Dioxide (22-30) mmol/L Anion Gap mmol/L BUN (7-17) mg/dL Creatinine (0.52-1.04) mg/dL Est GFR (CKD-EPI)AfAm (>60 ml/min/1.73 sqM) Est GFR (CKD-EPI)NonAf (>60 ml/min/1.73 sqM) Glucose (74-99) mg/dL Calcium (8.4-10.2) mg/dL Total Bilirubin (0.2-1.3) mg/dL AST (14-36) U/L ALT (4-34) U/L Alkaline Phosphatase (38-126) U/L Total Protein (6.3-8.2) g/dL Albumin (3.5-5.0) g/dL Lipase (23-300) U/L Urine Color Colorless Urine Appearance Clear (Clear) Urine pH 6.5 (5.0-8.0) Ur Specific Lindsay 1.006 (1.001-1.035) Urine Protein Negative (Negative) Urine Glucose (UA) Negative (Negative) Urine Ketones Negative (Negative) Urine Blood Negative (Negative) Urine Nitrite Negative (Negative) Urine Bilirubin Negative (Negative) Urine Urobilinogen <2.0 (<2.0) mg/dL Ur Leukocyte Esterase Moderate H (Negative) Urine WBC 5 (0-5) /hpf Urine Bacteria Moderate H (None) /hpf Urine Mucus Rare H (None) /hpf Urine HCG, Qual Not Detected (Not Detectd) 01/22/20 Range/Units 23:33 WBC (3.8-10.6) k/uL RBC (3.80-5.40) m/uL Hgb (11.4-16.0) gm/dL Hct (34.0-46.0) % MCV (80.0-100.0) fL MCH (25.0-35.0) pg MCHC (31.0-37.0) g/dL RDW (11.5-15.5) % Plt Count (150-450) k/uL MPV Neutrophils % % Lymphocytes % % Monocytes % % Eosinophils % % Basophils % % Neutrophils # (1.3-7.7) k/uL Lymphocytes # (1.0-4.8) k/uL Monocytes # (0-1.0) k/uL Eosinophils # (0-0.7) k/uL Basophils # (0-0.2) k/uL Sodium 139 (137-145) mmol/L Potassium 3.8 (3.5-5.1) mmol/L Chloride 105 (98-107) mmol/L Carbon Dioxide 24 (22-30) mmol/L Anion Gap 10 mmol/L BUN 19 H (7-17) mg/dL Creatinine 1.48 H (0.52-1.04) mg/dL Est GFR (CKD-EPI)AfAm 50 (>60 ml/min/1.73 sqM) Est GFR (CKD-EPI)NonAf 44 (>60 ml/min/1.73 sqM) Glucose 113 H (74-99) mg/dL Calcium 9.5 (8.4-10.2) mg/dL Total Bilirubin 0.4 (0.2-1.3) mg/dL AST 25 (14-36) U/L ALT 17 (4-34) U/L Alkaline Phosphatase 71 (38-126) U/L Total Protein 6.8 (6.3-8.2) g/dL Albumin 4.3 (3.5-5.0) g/dL Lipase 157 (23-300) U/L Urine Color Urine Appearance (Clear) Urine pH (5.0-8.0) Ur Specific [place] (1.001-1.035) Urine Protein (Negative) Urine Glucose (UA) (Negative) Urine Ketones (Negative) Urine Blood (Negative) Urine Nitrite (Negative) Urine Bilirubin (Negative) Urine Urobilinogen (<2.0) mg/dL Ur Leukocyte Esterase (Negative) Urine WBC (0-5) /hpf Urine Bacteria (None) /hpf Urine Mucus (None) /hpf Urine HCG, Qual (Not Detectd) - Radiology Data Radiology results: report reviewed, image reviewed KUB x-ray was obtained. Report was reviewed in its entirety. Impression by Dr. Donovan shows pattern appears within normal limits. Previously seen renal calculi are no longer visible. Disposition Clinical Impression: Kidney stone, Flank pain Disposition: HOME SELF-CARE Condition: Good Instructions (If sedation given, give patient instructions): Kidney Stones (ED), Flank Pain (ED) Additional Instructions: Take medications as directed. Follow-up with primary care physician for recheck in 1-2 days. Have repeat kidney function tests performed. Follow-up with urology for further evaluation as soon as possible. Return to the emergency department immediately for any new, worsening, or concerning symptoms. Is patient prescribed a controlled substance at d/c from ED?: No Referrals: Stefan Mosquera DO [Primary Care Provider] - 1-2 days Time of Disposition: 01:18
[2020-01-23] MEDS ORDERED: HYDROmorphone 0.5 MG/0.5 ML SYRINGE IVP STA (01:28)
[2020-01-23 02:17] VITALS: BP 124/81; TEMP 97.8
== END 2020-01-23 02:27 | disposition home or self-care (01) ==
LOC: EC 22:20
DX: N20.0 Calculus of kidney (principal); N17.9 Acute kidney failure, unspecified; Z87.442 Personal history of urinary calculi
CPT/HCPCS: 36415; 80053; 83690; 85025; 81001; 81025; 74018; 99284; 96374; 96375 ×2; 96376; 96361 ×2; J2405; J1885; J1170 ×2

== ENCOUNTER → 2020-01-22 | Outpatient (CLI) | payer BC | END | disposition home or self-care (01) | LOC: LABWHC1 15:36 | PROVIDERS: ATTEND Physician Assistant | DX: R43.0 Anosmia (principal) | CPT/HCPCS: U0003; C9803 ==

== ENCOUNTER 2020-01-23 07:03 | Inpatient (IN) | payer BC ==
[2020-01-23] MEDS ORDERED: SODIUM CHLORIDE 0.9% 1,000 ML IV STA (07:19)
[2020-01-23] MEDS ORDERED: KETOROLAC 15 MG/ML 1 ML VIAL IVP STA (07:19)
[2020-01-23] MEDS ORDERED: MORPHINE SULFATE 4 MG/ML SYRINGE IV STA (07:19)
[2020-01-23] MEDS ORDERED: ONDANSETRON 4 MG/2 ML VIAL IVP STA (07:19)
[2020-01-23] MEDS ORDERED: TAMSULOSIN 0.4 MG CAP.ER.24H PO STA (07:23)
--- NOTE | 2020-01-23 07:23 | ED ---
Abdominal Pain HPI - General Chief Complaint: Abdominal Pain Stated Complaint: revisit kidney stone pain and chills Time Seen by Provider: 01/23/20 07:11 Source: patient, RN notes reviewed, old records reviewed Mode of arrival: ambulatory Limitations: no limitations - History of Present Illness Initial Comments: Patient is a 39-year-old female presents emergency room today for reevaluation with right-sided flank pain. Patient reportedly was in the emergency department yesterday for complaints of right-sided flank pain and concern for kidney stone. She had workup completed and had pain-free and was discharged home. She reports that her pain returned this morning and so she decided to come to the ER. She also reports 45 minutes of Rigors and chills. She reports that previously kidney stones had a be removed via lithotripsy. Dr. Mahoney was her previous urologist. She denies vomiting or diarrhea but complains of nausea. Patient states that she's had no dysuria. She reports that she's had infected stones in the past. - Related Data Home Medications Medication Instructions Recorded Confirmed 114/Iron A-G/Folate 1 1 each PO DAILY 06/14/17 07/09/19 [Prenate Elite Tablet] Allergies Allergy/AdvReac Type Severity Reaction Status Date / Time No Known Allergies Allergy Verified 01/23/20 07:11 Review of Systems ROS Statement: Those systems with pertinent positive or pertinent negative responses have been documented in the HPI. ROS Other: All systems not noted in ROS Statement are negative. Past Medical History Additional Past Medical History / Comment(s): Prior Kidney Stones History of Any Multi-Drug Resistant Organisms: None Reported Additional Past Surgical History / Comment(s): Kidney Stone Removed . wisdom teeth Past Anesthesia/Blood Transfusion Reactions: No Reported Reaction Past Psychological History: Anxiety, Depression Smoking Status: Never smoker Past Alcohol Use History: None Reported Past Drug Use History: None Reported - Past Family History Brother(s) Family Medical History: Cancer Additional Family Medical History / Comment(s): testicular Father Family Medical History: Cancer Additional Family Medical History / Comment(s): mesothelioma Son(s) Family Medical History: Cancer Additional Family Medical History / Comment(s): leukemia General Exam - General Exam Comments Initial Comments: 39-year-old female. Alert and oriented. No distress. Limitations: no limitations General appearance: alert, in no apparent distress Head exam: Present: atraumatic, normocephalic, normal inspection Eye exam: Present: normal appearance ENT exam: Present: normal exam, mucous membranes moist Neck exam: Present: normal inspection. Absent: tenderness, meningismus, lymphadenopathy Respiratory exam: Present: normal lung sounds bilaterally. Absent: respiratory distress, wheezes, rales, rhonchi, stridor Cardiovascular Exam: Present: regular rate, normal rhythm, normal heart sounds. Absent: systolic murmur, diastolic murmur, rubs, gallop, clicks GI/Abdominal exam: Present: soft, normal bowel sounds, other (Suprapubic tenderness). Absent: distended, tenderness, guarding, rebound, rigid Extremities exam: Present: normal inspection, full ROM, normal capillary refill. Absent: tenderness, pedal edema, joint swelling, calf tenderness Back exam: Present: normal inspection, CVA tenderness (R) Neurological exam: Present: alert, oriented X3, CN II-XII intact Psychiatric exam: Present: normal affect, normal mood Skin exam: Present: warm, dry, intact, normal color. Absent: rash Course Vital Signs 01/23/20 01/23/20 01/23/20 07:06 08:53 08:58 Temperature 99.2 F 97.9 F Pulse Rate 113 H 111 H Respiratory 18 16 Rate Blood Pressure 122/45 122/71 O2 Sat by Pulse 98 97 Oximetry Medical Decision Making - Medical Decision Making 39-year-old female with a history of kidney stones presents emergency department today with right flank pain. This is patient's second visit today. She reports that she was feeling well and her first visit but returned after having 45 minutes of rigors and chills and worsening pain. Patient is given IV fluids labwork obtained. She does have evidence of white blood cells in her urine positive nitrates. Urine culture will be completed. Patient is given 2 g of Rocephin. Computed tomography scan shows evidence of a 9.6 mm mid ureter stone injury hydronephrosis. Patient required multiple doses of IV pain medication for relief. Patient's case was discussed with Dr. Lobato who discussed the case with Dr. Saul. Patient will be admitted at this time. Remaing NPO. - Lab Data Result diagrams: 01/23/20 07:23 01/23/20 07:23 Lab Results 11/01/23/20 01/23/20 Range/Units 07:23 07:23 07:23 WBC 5.3 (3.8-10.6) k/uL RBC 4.33 (3.80-5.40) m/uL Hgb 13.3 (11.4-16.0) gm/dL Hct 38.0 (34.0-46.0) % MCV 87.7 (80.0-100.0) fL MCH 30.6 (25.0-35.0) pg MCHC 34.9 (31.0-37.0) g/dL RDW 12.5 (11.5-15.5) % Plt Count 147 L (150-450) k/uL MPV 6.9 Neutrophils % 81 % Lymphocytes % 15 % Monocytes % 2 % Eosinophils % 1 % Basophils % 0 % Neutrophils # 4.3 (1.3-7.7) k/uL Lymphocytes # 0.8 L (1.0-4.8) k/uL Monocytes # 0.1 (0-1.0) k/uL Eosinophils # 0.1 (0-0.7) k/uL Basophils # 0.0 (0-0.2) k/uL PT (9.0-12.0) sec INR (<1.2) APTT (22.0-30.0) sec Sodium 136 L (137-145) mmol/L Potassium 3.8 (3.5-5.1) mmol/L Chloride 109 H (98-107) mmol/L Carbon Dioxide 23 (22-30) mmol/L Anion Gap 4 mmol/L BUN 17 (7-17) mg/dL Creatinine 0.83 (0.52-1.04) mg/dL Est GFR (CKD-EPI)AfAm >90 (>60 ml/min/1.73 sqM) Est GFR (CKD-EPI)NonAf 88 (>60 ml/min/1.73 sqM) Glucose 96 (74-99) mg/dL Calcium 8.2 L (8.4-10.2) mg/dL Total Bilirubin 0.6 (0.2-1.3) mg/dL AST 23 (14-36) U/L ALT 15 (4-34) U/L Alkaline Phosphatase 64 (38-126) U/L Total Protein 5.6 L (6.3-8.2) g/dL Albumin 3.4 L (3.5-5.0) g/dL Amylase <30 L (30-110) U/L Lipase 72 (23-300) U/L Urine Color Light Yellow Urine Appearance Clear (Clear) Urine pH 6.0 (5.0-8.0) Ur Specific [place] 1.012 (1.001-1.035) Urine Protein Negative (Negative) Urine Glucose (UA) Negative (Negative) Urine Ketones Negative (Negative) Urine Blood Small H (Negative) Urine Nitrite Positive H (Negative) Urine Bilirubin Negative (Negative) Urine Urobilinogen <2.0 (<2.0) mg/dL Ur Leukocyte Esterase Large H (Negative) Urine RBC 5 (0-5) /hpf Urine WBC 37 H (0-5) /hpf Ur Squamous Epith Cells <1 (0-4) /hpf Urine Mucus Rare H (None) /hpf 01/23/20 Range/Units 07:23 WBC (3.8-10.6) k/uL RBC (3.80-5.40) m/uL Hgb (11.4-16.0) gm/dL Hct (34.0-46.0) % MCV (80.0-100.0) fL MCH (25.0-35.0) pg MCHC (31.0-37.0) g/dL RDW (11.5-15.5) % Plt Count (150-450) k/uL MPV Neutrophils % % Lymphocytes % % Monocytes % % Eosinophils % % Basophils % % Neutrophils # (1.3-7.7) k/uL Lymphocytes # (1.0-4.8) k/uL Monocytes # (0-1.0) k/uL Eosinophils # (0-0.7) k/uL Basophils # (0-0.2) k/uL PT 9.7 (9.0-12.0) sec INR 0.9 (<1.2) APTT 22.1 (22.0-30.0) sec Sodium (137-145) mmol/L Potassium (3.5-5.1) mmol/L Chloride (98-107) mmol/L Carbon Dioxide (22-30) mmol/L Anion Gap mmol/L BUN (7-17) mg/dL Creatinine (0.52-1.04) mg/dL Est GFR (CKD-EPI)AfAm (>60 ml/min/1.73 sqM) Est GFR (CKD-EPI)NonAf (>60 ml/min/1.73 sqM) Glucose (74-99) mg/dL Calcium (8.4-10.2) mg/dL Total Bilirubin (0.2-1.3) mg/dL AST (14-36) U/L ALT (4-34) U/L Alkaline Phosphatase (38-126) U/L Total Protein (6.3-8.2) g/dL Albumin (3.5-5.0) g/dL Amylase (30-110) U/L Lipase (23-300) U/L Urine Color Urine Appearance (Clear) Urine pH (5.0-8.0) Ur Specific [place] (1.001-1.035) Urine Protein (Negative) Urine Glucose (UA) (Negative) Urine Ketones (Negative) Urine Blood (Negative) Urine Nitrite (Negative) Urine Bilirubin (Negative) Urine Urobilinogen (<2.0) mg/dL Ur Leukocyte Esterase (Negative) Urine RBC (0-5) /hpf Urine WBC (0-5) /hpf Ur Squamous Epith Cells (0-4) /hpf Urine Mucus (None) /hpf - Radiology Data Radiology results: report reviewed The mid right ureteral kyphosis present has migrated from the kidney and measures 9-10 mm in size. Perinephric stranding is present. Perinephric fluid a receptive 40 still rupture. Left kidney shows an instructed to use a lower pole on prior. Disposition Clinical Impression: Flank pain, Kidney stone, UTI (urinary tract infection) Disposition: ADMITTED IP TO THIS HOSP Condition: Stable Is patient prescribed a controlled substance at d/c from ED?: No Referrals: Stefan Mosquera DO [Primary Care Provider] - 1-2 days Time of Disposition: 09:07
[2020-01-23 07:42] LABS: Basophils % (A) 0 %; Eosinophils # (A) 0.1 k/uL (0-0.7); Eosinophils % (A) 1 %; HGB 13.3 gm/dL (11.4-16.0); Lymphocytes # (A) 0.8 k/uL (1.0-4.8); Lymphocytes % (A) 15 %; MCH 30.6 pg (25.0-35.0); MCHC 34.9 g/dL (31.0-37.0); MCV 87.7 fL (80.0-100.0); Mean Platelet Volume 6.9; Monocytes # (A) 0.1 k/uL (0-1.0); Monocytes % (A) 2 %; Neutrophils # (A) 4.3 k/uL (1.3-7.7); Neutrophils % (A) 81 %; Platelet Count 147 k/uL (150-450); RBC 4.33 m/uL (3.80-5.40); RDW 12.5 % (11.5-15.5); WBC 5.3 k/uL (3.8-10.6)
[2020-01-23] MEDS: SODIUM CHLORIDE 0.9% 1,000 ML IV STA ×2 (07:45→17:43)
[2020-01-23 07:57] LABS: ALT 15 U/L (4-34); AST 23 U/L (14-36); African American GFR (CKD) >90 (>60 ml/min/1.73 sqM); Albumin 3.4 g/dL (3.5-5.0); Alkaline Phosphatase 64 U/L (38-126); Amylase <30 U/L (30-110); Anion Gap 4 mmol/L; Blood Urea Nitrogen 17 mg/dL (7-17); Calcium 8.2 mg/dL (8.4-10.2); Carbon Dioxide 23 mmol/L (22-30); Chloride 109 mmol/L (98-107); Glucose 96 mg/dL (74-99); Lipase 72 U/L (23-300); Non-African American GFR(CKD) 88 (>60 ml/min/1.73 sqM); Potassium 3.8 mmol/L (3.5-5.1); Sodium 136 mmol/L (137-145); Total Bilirubin 0.6 mg/dL (0.2-1.3); Total Protein 5.6 g/dL (6.3-8.2)
[2020-01-23 08:03] LABS: Appearance,Urine Clear (Clear); Bilirubin,Urine Negative (Negative); Blood,Urine Small (Negative); Color,Urine Light Yellow; Glucose,Urine (UA) Negative (Negative); Ketones,Urine Negative (Negative); Leukocyte Esterase,Urine Large (Negative); Mucus,Urine Rare /hpf; Nitrite,Urine Positive (Negative); Protein,Urine Negative (Negative); RBC,Urine 5 /hpf (0-5); Specific Gravity,Urine 1.012 (1.001-1.035); Squamous Epithelial Cell,Urine <1 /hpf (0-4); Urobilinogen,Urine <2.0 mg/dL (<2.0); WBC,Urine 37 /hpf (0-5)
[2020-01-23 08:21] LABS: INR 0.9 (<1.2); Partial Thromboplastin Time 22.1 sec (22.0-30.0); Prothrombin Time 9.7 sec (9.0-12.0)
--- NOTE | 2020-01-23 08:26 | CT ---
EXAMINATION TYPE: CT abdomen pelvis wo con DATE OF EXAM: 01/23/2020 COMPARISON: CT 08/20/2019 HISTORY: Kidney stone pain and chills CT DLP: 356.7 mGycm Automated exposure control for dose reduction was used. TECHNIQUE: Helical acquisition of images from the lung bases through the pelvis. FINDINGS: Lack of contrast could compromise sensitivity. LUNG BASES: No significant abnormality is appreciated. AORTA: No significant abnormality is appreciated. LIVER/GB: No significant abnormality is appreciated. PANCREAS: No significant abnormality is seen. SPLEEN: No significant abnormality is seen. ADRENALS: No significant abnormality is seen. KIDNEYS: There is right-sided hydronephrosis. Mid right ureteral calculus is present and has migrated from the kidney and measures approximately 9 to 10 mm in size. There is perinephric stranding presen t. Perinephric fluid may represent forniceal rupture. Left kidney shows a nonobstructive calculus at the lower pole as on prior. REPRODUCTIVE ORGANS: No significant abnormality is seen. URINARY BLADDER: No significant abnormality is seen. BOWEL: No significant abnormality is seen. FREE AIR: No Free Air is visible. ASCITES: None visible. PELVIC ADENOPATHY: None visualized. RETROPERITONEAL ADENOPATHY: No Retroperitoneal Adenopathy visible. OSSEOUS STRUCTURES: No significant abnormality is seen. IMPRESSION: OBSTRUCTIVE RIGHT URETERAL CALCULUS.
[2020-01-23] MEDS ORDERED: SODIUM CHLORIDE 0.9% 1,000 ML IV ONE (08:44)
[2020-01-23] MEDS ORDERED: HYDROmorphone 1 MG/ML 1 ML SYRINGE IVP STA (08:44)
[2020-01-23] MEDS ORDERED: IBUPROFEN 400 MG TAB PO PRN (09:08)
[2020-01-23] MEDS ORDERED: NALOXONE 0.4 MG/ML 1 ML VIAL IV PRN (09:08)
--- NOTE | 2020-01-23 10:57 | P.GSHP ---
History of Present Illness H&P Date: 01/23/20 Chief Complaint: Right flank pain The patient is a 39-year-old white female with a history of recurrent urolithiasis. She has undergone ESWL on 2 prior occasions, as well as u reteroscopy with stone basketing on one occasion. She experienced right flank discomfort on 12/30/2019. Her pain became severe yesterday evening, associated with nausea, vomiting, and chills. She was seen in the emergency room and discharged home, only to return with intractable symptoms. A computed tomography scan has shown right hydronephrosis with right perinephric stranding due to a 9.6 mm right mid-ureteral calculus. A 5 mm left lower pole renal calculus was also seen. - Constitutional Constitutional: Reports chills, Denies fever - Gastrointestinal Gastrointestinal: Reports nausea, Reports vomiting - Genitourinary (Female) Genitourinary: Reports flank pain, Reports kidney stones, Denies hematuria Past Medical History Additional Past Medical History / Comment(s): Prior Kidney Stones History of Any Multi-Drug Resistant Organisms: None Reported Additional Past Surgical History / Comment(s): Kidney Stone Removed . wisdom teeth Past Anesthesia/Blood Transfusion Reactions: No Reported Reaction Past Psychological History: Anxiety, Depression Smoking Status: Never smoker Past Alcohol Use History: None Reported Past Drug Use History: None Reported - Past Family History Brother(s) Family Medical History: Cancer Additional Family Medical History / Comment(s): testicular Father Family Medical History: Cancer Additional Family Medical History / Comment(s): mesothelioma Son(s) Family Medical History: Cancer Additional Family Medical History / Comment(s): leukemia Medications and Allergies Home Medications Medication Instructions Recorded Confirmed Type Multivitamins, Thera [Multivitamin 1 tab PO DAILY 01/23/20 01/23/20 History (formulary)] Norlyda 0.35mg 1 tab PO DAILY 01/23/20 01/23/20 History Allergies Allergy/AdvReac Type Severity Reaction Status Date / Time No Known Allergies Allergy Verified 01/23/20 10:04 Surgical - Exam Vital Signs Temp Pulse Resp BP Pulse Ox 99.2 F 113 H 18 122/45 98 01/23/20 07:06 01/23/20 07:06 01/23/20 07:06 01/23/20 07:06 01/23/20 07:06 - General well developed, well nourished, no distress - Neck no masses, trachea midline - Respiratory normal respiratory effort - Abdomen Abdomen: soft, tender (Mild right-sided tenderness to palpation), no guarding, no rigid, no rebound, no distended - Psychiatric oriented to time, oriented to person, oriented to place, speech is normal, memory intact Results - Labs 01/23/20 07:23 01/23/20 07:23 Abnormal Lab Results - Last 24 Hours (Table) 01/23/20 01/23/20 01/23/20 Range/Units 07:23 07:23 07:23 Plt Count 147 L (150-450) k/uL Lymphocytes # 0.8 L (1.0-4.8) k/uL Sodium 136 L (137-145) mmol/L Chloride 109 H (98-107) mmol/L Calcium 8.2 L (8.4-10.2) mg/dL Total Protein 5.6 L (6.3-8.2) g/dL Albumin 3.4 L (3.5-5.0) g/dL Amylase <30 L (30-110) U/L Urine Blood Small H (Negative) Urine Nitrite Positive H (Negative) Ur Leukocyte Esterase Large H (Negative) Urine WBC 37 H (0-5) /hpf Urine Mucus Rare H (None) /hpf Diabetes panel 01/23/20 Range/Units 07:23 Sodium 136 L (137-145) mmol/L Potassium 3.8 (3.5-5.1) mmol/L Chloride 109 H (98-107) mmol/L Carbon Dioxide 23 (22-30) mmol/L BUN 17 (7-17) mg/dL Creatinine 0.83 (0.52-1.04) mg/dL Glucose 96 (74-99) mg/dL Calcium 8.2 L (8.4-10.2) mg/dL AST 23 (14-36) U/L ALT 15 (4-34) U/L Alkaline Phosphatase 64 (38-126) U/L Total Protein 5.6 L (6.3-8.2) g/dL Albumin 3.4 L (3.5-5.0) g/dL Calcium panel 01/23/20 Range/Units 07:23 Calcium 8.2 L (8.4-10.2) mg/dL Albumin 3.4 L (3.5-5.0) g/dL Pituitary panel 01/23/20 Range/Units 07:23 Sodium 136 L (137-145) mmol/L Potassium 3.8 (3.5-5.1) mmol/L Chloride 109 H (98-107) mmol/L Carbon Dioxide 23 (22-30) mmol/L BUN 17 (7-17) mg/dL Creatinine 0.83 (0.52-1.04) mg/dL Glucose 96 (74-99) mg/dL Calcium 8.2 L (8.4-10.2) mg/dL Adrenal panel 01/23/20 Range/Units 07:23 Sodium 136 L (137-145) mmol/L Potassium 3.8 (3.5-5.1) mmol/L Chloride 109 H (98-107) mmol/L Carbon Dioxide 23 (22-30) mmol/L BUN 17 (7-17) mg/dL Creatinine 0.83 (0.52-1.04) mg/dL Glucose 96 (74-99) mg/dL Calcium 8.2 L (8.4-10.2) mg/dL Total Bilirubin 0.6 (0.2-1.3) mg/dL AST 23 (14-36) U/L ALT 15 (4-34) U/L Alkaline Phosphatase 64 (38-126) U/L Total Protein 5.6 L (6.3-8.2) g/dL Albumin 3.4 L (3.5-5.0) g/dL - Imaging CT scan - abdomen: report reviewed, image reviewed Assessment and Plan (1) UTI (urinary tract infection) Current Visit: Yes Status: Acute Code(s): N39.0 - URINARY TRACT INFECTION, SITE NOT SPECIFIED SNOMED Code(s): 83218211 (2) Kidney stone Current Visit: Yes Status: Acute Code(s): N20.0 - CALCULUS OF KIDNEY SNOMED Code(s): 67554229 (3) Calculus of ureter Current Visit: Yes Status: Acute Code(s): N20.1 - CALCULUS OF URETER SNOMED Code(s): 21201784 Plan: I had a lengthy discussion with the patient regarding her condition. She appears to have a UTI, possible pyelonephritis. A urine culture is pending. She shows no signs of sepsis. She will be admitted for IV hydration, IV antibiotics, parenteral analgesics and antibiotics. She has been scheduled to undergo right ureteral stent insertion. The rationale for this has been discussed. She is aware of potential risks, which include anesthesia, bleeding, infection, and ureteral injury. She is also aware of the possibility that a stent cannot be successfully placed, in which case she may require a right percutaneous nephrostomy tube. Time with Patient: Greater than 30
[2020-01-23] MEDS: HYDROmorphone 1 MG/ML 1 ML SYRINGE IVP PRN ×3 (11:52→21:23)
[2020-01-23] MEDS: ONDANSETRON 4 MG/2 ML VIAL IVP PRN (15:34)
[2020-01-23] MEDS: KETOROLAC 15 MG/ML 1 ML VIAL IVP PRN (17:46)
[2020-01-23 19:57] VITALS: RESP 18
[2020-01-24] MEDS: HYDROmorphone 1 MG/ML 1 ML SYRINGE IVP PRN (05:44)
[2020-01-24] MEDS: ACETAMINOPHEN TAB 325 MG TAB PO PRN ×2 (05:53→21:18)
[2020-01-24] MEDS: PANTOPRAZOLE 40 MG/10 ML VIAL IV SCH (08:09)
[2020-01-24] MEDS: ONDANSETRON 4 MG/2 ML VIAL IVP PRN (08:16)
[2020-01-24] MEDS ORDERED: SUCCINYLCHOLINE CHLORIDE 100 MG/5 ML SYR IV ONE (09:11)
[2020-01-24] MEDS ORDERED: ONDANSETRON 4 MG/2 ML VIAL ONE (09:11)
[2020-01-24] MEDS ORDERED: fentaNYL (PF) 50 MCG/ML 2 ML AMP ONE (09:11)
[2020-01-24] MEDS ORDERED: LIDOCAINE 1% INJ 10MG/ML (20 ML MDV) ONE (09:11)
[2020-01-24] MEDS ORDERED: PROPOFOL 10 MG/ML 20 ML VIAL IV ONE (09:11)
[2020-01-24] MEDS ORDERED: SODIUM CHLORIDE 0.9% 1,000 ML IV ONE (09:11)
[2020-01-24] MEDS ORDERED: DEXAMETHASONE SOD PHOSPHATE 10 MG/ML 1 ML VIAL ONE (09:11)
--- NOTE | 2020-01-24 10:06 | P.OP ---
Date of Procedure: 01/24/20 Preoperative Diagnosis: Right hydronephrosis secondary to ureteral calculus Postoperative Diagnosis: Same Procedure(s) Performed: Cystoscopy, right ureteral stent insertion Anesthesia: EVELINAA Surgeon: Yobany Malloy Estimated Blood Loss (ml): 0 IV fluids (ml): 700 Pathology: none sent Condition: stable Disposition: PACU Indications for Procedure: The patient is a 39-year-old white female admitted yesterday with right flank pain due to a 9-10 mm right midureteral calculus. Urinalysis was consistent with infection, and she thus comes for stent placement. Operative Findings: Successful placement of right ureteral stent. Description of Procedure: The patient was taken to the operating room and placed in the dorsolithotomy position, with legs supported in Harvinder stirrups. The external genitalia was prepped and draped sterilely. The 30 lens was used to introduce the 22-Australian Stortz cystoscopic sheath through the urethra and into the bladder under direct vision. The bladder was examined in its entirety. Both ureteral orifices were of normal anatomic location and configuration, and clear urine effluxed from both. No tumors or foreign bodies were seen. An open-ended catheter was passed through the cystoscope, and the right ureteral orifice was cannulated. An angle-tip 0.035 inch Glidewire was passed through the open-ended catheter and was slowly advanced up to the renal pelvis. A 24 cm, 6-Australian double-J ureteral stent was placed over the wire. Proper stent positioning was verified fluoroscopically and endoscopically. There was no hydronephrotic fields, and no evidence of purulent urine. The bladder was emptied and the cystoscope removed. The patient tolerated the procedure well was taken to the recovery room in stable condition.
--- NOTE | 2020-01-24 11:07 | FL ---
Fluoroscopy History: RIGHT URETERAL STENT PLACEMENT 58 SEC FLUORO, 1 IMAGE SCANNED
[2020-01-24] MEDS: KETOROLAC 15 MG/ML 1 ML VIAL IVP PRN ×2 (16:13→22:48)
--- NOTE | 2020-01-24 19:43 | P.CONS ---
History of Present Illness - Reason for Consult Consult date: 01/24/20 medical management Requesting physician: Yobany Malloy - Chief Complaint Abdominal pain - History of Present Illness This is a very pleasant 39-year-old patient of Dr. Mosquera. Has a prior history of multiple kidney stones including apparent having had lithotripsy. On Saturday the patient started developing right-sided flank and back pain. Other became severe. Had some nausea and chills. Since investigations had some loss of smell. And 3- computed tomography scan in the ER showed a right-sided hydronephrosis. With the right ureter calculus about 9-10 mm in size. Causing some perinephritic stranding. Nonobstructive calculus in the left kidney lower pole. 4 days before that she has been just feeling out of sorts with some sinus-like symptoms. No obvious fever and chills before that. Patient earlier today had undergone cystoscopy followed by a right ureteral stent. Patient had been placed and IV ceftriaxone. Patient still feeling a bit tired. Patient had a fever yesterday. Feeling tired this morning. Has had a slight headache. Patient after having arrived to the floor had cover testing done. Has come back positive for COVID. Review of systems: GEN.: Fever tired EYES: None HEENT: Slight headache NECK: None RESPIRATORY: None CARDIOVASCULAR: None GASTROINTESTINAL: None GENITOURINARY: As above MUSCULOSKELETAL: None LYMPHATICS: None HEMATOLOGICAL: None PSYCHIATRY: None NEUROLOGICAL: None Past medical history to include: Multiple kidney stones, lithotripsy Social history: Does not smoke or drink alcohol. . Homemaker Physical examination: VITAL SIGNS: 100.5, 106, 20, 103/51, 97% on room air GENERAL: BMI 21.9, sitting up in bed, slightly tired. EYES: Pupils equal. Conjunctiva normal. HEENT: External appearance of nose and ears normal, oral cavity grossly normal. NECK: JVD not raised; masses not palpable. HEART: First and second heart sounds are normal; no edema. LUNGS: Respiratory rate normal; clear to auscultation. ABDOMEN: Soft, nontender, liver spleen not palpable, no masses palpable. PSYCH: Alert and oriented x3; mood and affect normal. NEUROLOGICAL: Cranial nerves grossly intact; no facial asymmetry, power and sensation grossly intact. LYMPHATICS: No lymph nodes palpable in the axilla and neck INVESTIGATIONS, reviewed in the clinical context: White count 5.3 hemoglobin 13.3 platelets 147 potassium 3.8 creatinine 0.83 Amylase less than 30 lipase 72 UA positive for nitrite and leukoesterase, WBC COVID 19 PCR detected Computed tomography scan of the abdomen and pelvis-right hydronephrosis with perinephric stranding mid ureter calculus, 9-10 mm calculus Assessment: -Right midureter calculus causing obstruction leading to secondary hydronephrosis possible early pyelonephritis the secondary UTI. -Status post cystoscopy and right ureter stent placement. -Sepsis likely from above. -COVID 19 PCR positive, patient minimal if any respiratory symptoms. Patient has loss of smell. At this point given the infection from urinary tract not be determined if patient other symptoms are from the COVID 19 or from the UTI. Plan: Patient is an IV ceftriaxone. We'll give IV fluids. Patient's CRP has come back to be high. Encourage oral intake. Discussed with Dr. Alonzo over the phone. Lovenox for DVT prophylaxis. Patient's pulse ox is constantly been above 95%. No indication for steroids or any other treatment the present time. Thank you Dr. Saul Past Medical History Additional Past Medical History / Comment(s): Prior Kidney Stones History of Any Multi-Drug Resistant Organisms: None Reported Additional Past Surgical History / Comment(s): Kidney Stone Removed . wisdom teeth Past Anesthesia/Blood Transfusion Reactions: No Reported Reaction Past Psychological History: Anxiety, Depression Smoking Status: Never smoker Past Alcohol Use History: None Reported Past Drug Use History: None Reported - Past Family History Brother(s) Family Medical History: Cancer Additional Family Medical History / Comment(s): testicular Father Family Medical History: Cancer Additional Family Medical History / Comment(s): mesothelioma Son(s) Family Medical History: Cancer Additional Family Medical History / Comment(s): leukemia Medications and Allergies Home Medications Medication Instructions Recorded Confirmed Type Multivitamins, Thera [Multivitamin 1 tab PO DAILY 01/23/20 01/23/20 History (formulary)] Norlyda 0.35mg 1 tab PO DAILY 01/23/20 01/23/20 History Allergies Allergy/AdvReac Type Severity Reaction Status Date / Time No Known Allergies Allergy Verified 01/23/20 10:04 Physical Exam Vitals: Vital Signs Temp Pulse Resp BP Pulse Ox 11/15/20 07:41 99.0 F 103 H 18 123/76 95 01/23/20 23:00 99 F 111 H 18 121/65 95 01/23/20 19:50 100.0 F H 100 18 118/78 97 01/23/20 16:10 100.5 F H 106 H 20 103/51 97 01/23/20 11:50 98.1 F 128 H 18 103/48 94 L Intake and Output 01/23/20 01/24/20 01/24/20 22:59 06:59 14:59 Intake Total 830 Output Total 1400 900 Balance -1400 -70 Intake: IV 700 Intake, IV Titration 130 Amount Sodium Chloride 0.9% 1, 130 000 ml @ 130 mls/hr IV . Q7H42M STA Rx#:[id number] Output: Urine 1400 900 Estimated Blood Loss 0 Other: Voiding Method Toilet Toilet Toilet # Voids 1 1 Results CBC & Chem 7: 01/23/20 07:23 01/23/20 07:23 Labs: Abnormal Lab Results - Last 24 Hours (Table) 01/23/20 01/23/20 Range/Units 15:02 20:29 Plasma Lactic Acid [place] 0.5 L (0.7-2.0) mmol/L Coronavirus (PCR) Detected A (Not Detectd) Microbiology - Last 24 Hours (Table) 01/23/20 07:23 Urine Culture - Preliminary Urine,Voided
[2020-01-24 23:14] VITALS: BP 94/60
[2020-01-25] MEDS: KETOROLAC 15 MG/ML 1 ML VIAL IVP PRN (07:31)
[2020-01-25] MEDS: PANTOPRAZOLE 40 MG/10 ML VIAL IV SCH (08:51)
[2020-01-25] MEDS ORDERED: NORETHINDRONE PO SCH (09:00)
[2020-01-25 10:53] VITALS: PULSE 84; TEMP 98.9
[2020-01-25] MEDS: ACETAMINOPHEN TAB 325 MG TAB PO PRN (10:56)
[2020-01-25 11:23] LABS: Basophils % (A) 0 %; Eosinophils # (A) 0.1 k/uL (0-0.7); Eosinophils % (A) 1 %; HCT 37.3 % (34.0-46.0); HGB 12.5 gm/dL (11.4-16.0); Lymphocytes # (A) 1.2 k/uL (1.0-4.8); Lymphocytes % (A) 24 %; MCH 30.1 pg (25.0-35.0); MCHC 33.5 g/dL (31.0-37.0); MCV 89.8 fL (80.0-100.0); Mean Platelet Volume 7.2; Monocytes # (A) 0.2 k/uL (0-1.0); Monocytes % (A) 4 %; Neutrophils # (A) 3.4 k/uL (1.3-7.7); Neutrophils % (A) 69 %; Platelet Count 184 k/uL (150-450); RBC 4.16 m/uL (3.80-5.40); RDW 12.9 % (11.5-15.5); WBC 4.9 k/uL (3.8-10.6)
--- NOTE | 2020-01-25 11:33 | P.DS ---
Providers Date of admission: 01/23/20 10:23 Attending physician: Yobany Malloy Consults: 01/24/20 10:37 Consult Physician Routine Consulting Provider: [facility] [place] Consult Reason/Comments: COVID Do you want consulting provider notified?: Yes Primary care physician: [facility] Course: Ms Perez is a 39-year-old female with a history of a right ureteral calculi. She also had a UTI on presentation. She underwent ureteral stent placement on January [address] Malloy. On postoperative day #1 her urine cultures came back E. coli mistry susceptible. She was discharged home on postoperative day #1. At time of discharge she was tolerating a diet, ambulating, pain well controlled. She will follow up with Dr. Fox 1-2 weeks, at that time she'll be set up for definitive stone management Patient Condition at Discharge: Stable Plan - Discharge Summary Discharge Rx Participant: Yes New Discharge Prescriptions: New Cephalexin [Keflex] 500 mg PO Q8HR 7 Days #21 cap Ketorolac [Toradol] 10 mg PO Q6HR #15 tab Famotidine [Pepcid] 20 mg PO BID #60 tablet Acetaminophen Tab [Tylenol] 650 mg PO Q6HR PRN tab PRN Reason: Mild Pain Or Fever > 100.5 Zinc Sulfate 220 mg PO DAILY #30 capsule Ascorbic Acid [Vitamin C] 500 mg PO DAILY #30 tablet Continue Multivitamins, Thera [Multivitamin (formulary)] 1 tab PO DAILY Norlyda 0.35mg 1 tab PO DAILY Discharge Medication List Multivitamins, Thera [Multivitamin (formulary)] 1 tab PO DAILY 01/23/20 [History] Norlyda 0.35mg 1 tab PO DAILY 01/23/20 [History] Acetaminophen Tab [Tylenol] 650 mg PO Q6HR PRN tab 01/25/20 [Rx] Ascorbic Acid [Vitamin C] 500 mg PO DAILY #30 tablet 01/25/20 [Rx] Cephalexin [Keflex] 500 mg PO Q8HR 7 Days #21 cap 01/25/20 [Rx] Famotidine [Pepcid] 20 mg PO BID #60 tablet 01/25/20 [Rx] Ketorolac [Toradol] 10 mg PO Q6HR #15 tab 01/25/20 [Rx] Zinc Sulfate 220 mg PO DAILY #30 capsule 01/25/20 [Rx] Follow up Appointment(s)/Referral(s): Stefan Mosquera DO [Primary Care Provider] - 1 Week Chriss Fox MD [STAFF PHYSICIAN] - 1 Week Activity/Diet/Wound Care/Special Instructions: You may see some blood in the urine Drink plenty of fluid covid 19 quarantine instructions Discharge Disposition: HOME SELF-CARE
--- NOTE | 2020-01-25 23:15 | P.PN ---
Progress Note - Text Progress Note Date: 01/25/20 - Chief Complaint Abdominal pain - History of Present Illness This is a very pleasant 39-year-old patient of Dr. Mosquera. Has a prior history of multiple kidney stones including apparent having had lithotripsy. On Saturday the patient started developing right-sided flank and back pain. Other became severe. Had some nausea and chills. Since investigations had some loss of smell. And 3- computed tomography scan in the ER showed a right-sided hydronephrosis. With the right ureter calculus about 9-10 mm in size. Causing some perinephritic stranding. Nonobstructive calculus in the left kidney lower pole. 4 days before that she has been just feeling out of sorts with some sinus-like symptoms. No obvious fever and chills before that. Patient earlier today had undergone cystoscopy followed by a right ureteral stent. Patient had been placed and IV ceftriaxone. Patient still feeling a bit tired. Patient had a fever yesterday. Feeling tired this morning. Has had a slight headache. Patient after having arrived to the floor had cover testing done. Has come back positive for COVID. Today-is a bit tired. No shortness breath. Pulse ox 97% room air. No fever. Told to follow the COVID 19 quarantine instructions. Discussed with nurse. Follow-up with PCP. Okay to be discharged. Review of systems: Was done for constitutional, cardiovascular, GI, pulmonary. relevant finding as above Current medications reviewed in today's electronic records Physical examination: VITAL SIGNS: 98.9, 84, 18, 97% on room air GENERAL: Sitting up in bed, comfortable. EYES: Pupils equal. Conjunctiva normal. NECK: JVD not raised; masses not palpable. HEART: First and second heart sounds are normal; no edema. LUNGS: Respiratory rate normal; clear to auscultation. ABDOMEN: Soft, nontender, liver spleen not palpable, no masses palpable. PSYCH: Alert and oriented x3; mood and affect normal. INVESTIGATIONS, reviewed in the clinical context: Mrmyi-i-jnalm 0.70, CRP 77.3 Previous testing CRP 204 White count 5.3 hemoglobin 13.3 platelets 147 potassium 3.8 creatinine 0.83 Amylase less than 30 lipase 72 UA positive for nitrite and leukoesterase, WBC COVID 19 PCR detected Computed tomography scan of the abdomen and pelvis-right hydronephrosis with perinephric stranding mid ureter calculus, 9-10 mm calculus Assessment: -Right midureter calculus causing obstruction leading to secondary hydronephrosis possible early pyelonephritis the secondary UTI. Cultures positive for E. coli. -Status post cystoscopy and right ureter stent placement. -Sepsis likely from above. -COVID 19 PCR positive, -stable Plan: Discussed with patient. No need for hospitalization. Patient may be discharged home with quarantine instructions. Discussed with patient and the nurse. Antibiotics per Dr. Alonzo. Follow-up with PCP. Thank you Dr. Saul
== END 2020-01-25 13:55 | disposition home or self-care (01) | DRG 853 ==
LOC: EC 07:03 → 6PED 10:23
PROVIDERS: ADMIT Urology; ATTEND Urology
PROC: 0T768DZ Dilation of Right Ureter with Intraluminal Device, Via Natural or Artificial Opening Endoscopic (ICD-10-PCS; principal; 2020-01-24 09:00)
DX: A41.51 Sepsis due to Escherichia coli [E. coli] (principal); U07.1 COVID-19; N13.6 Pyonephrosis; F32.9 Major depressive disorder, single episode, unspecified; F41.9 Anxiety disorder, unspecified; Z87.442 Personal history of urinary calculi; Z80.6 Family history of leukemia; Z80.43 Family history of malignant neoplasm of testis; Z98.890 Other specified postprocedural states
CPT/HCPCS: 36415; 74176; 80053; 81001; 82150; 83605; 83690; 85025; 85379; 85610; 85730; 86140; 87040; 87077; 87086; 87186; 87635; 96361; 96365; 96375; 99285

== ENCOUNTER → 2020-02-03 | Outpatient (CLI) | payer BC ==
[2020-02-03 12:31] LABS: Basophils % (A) 1 %; Eosinophils # (A) 0.3 k/uL (0-0.7); Eosinophils % (A) 5 %; HCT 40.8 % (34.0-46.0); HGB 14.1 gm/dL (11.4-16.0); Lymphocytes # (A) 1.8 k/uL (1.0-4.8); Lymphocytes % (A) 29 %; MCH 31.3 pg (25.0-35.0); MCHC 34.6 g/dL (31.0-37.0); MCV 90.6 fL (80.0-100.0); Mean Platelet Volume 7.2; Monocytes # (A) 0.2 k/uL (0-1.0); Monocytes % (A) 4 %; Neutrophils # (A) 3.7 k/uL (1.3-7.7); Neutrophils % (A) 60 %; Platelet Count 362 k/uL (150-450); WBC 6.1 k/uL (3.8-10.6)
[2020-02-03 12:44] LABS: African American GFR (CKD) >90 (>60 ml/min/1.73 sqM); Anion Gap 6 mmol/L; Blood Urea Nitrogen 23 mg/dL (7-17); Carbon Dioxide 28 mmol/L (22-30); Chloride 104 mmol/L (98-107); Glucose 134 mg/dL (74-99); Non-African American GFR(CKD) 88 (>60 ml/min/1.73 sqM); Potassium 4.6 mmol/L (3.5-5.1); Sodium 138 mmol/L (137-145)
[2020-02-03 13:16] LABS: Appearance,Urine Cloudy (Clear); Bilirubin,Urine Negative (Negative); Blood,Urine Large (Negative); Color,Urine Light Red; Glucose,Urine (UA) Negative (Negative); Ketones,Urine Negative (Negative); Leukocyte Esterase,Urine Moderate (Negative); Mucus,Urine Rare /hpf; Nitrite,Urine Negative (Negative); PH, Urine 6.5 (5.0-8.0); Protein,Urine 2+ (Negative); RBC,Urine >182 /hpf (0-5); Specific Gravity,Urine 1.021 (1.001-1.035); Urobilinogen,Urine <2.0 mg/dL (<2.0); WBC,Urine 38 /hpf (0-5)
== END | disposition home or self-care (01) ==
LOC: LABPAT 11:26
PROVIDERS: ATTEND Urology
DX: Z01.818 Encounter for other preprocedural examination (principal); N20.1 Calculus of ureter; R31.29 Other microscopic hematuria
CPT/HCPCS: 36415; 80048; 81001; 85025; 87086

== ENCOUNTER 2020-02-10 08:46 | Day surgery (SDC) | payer BC ==
[2020-02-03 17:25] VITALS: BMI 22.8
--- NOTE | 2020-02-09 18:06 | P.GSHP ---
History of Present Illness H&P Date: 02/09/20 39 yo female with a history of stones who in mid january underwent a right ureteral stent placement for an obstrucitng stone by Dr Malloy. SHe has been treated successfully with ab. She now comes for cysto ureteroscopy right with stone and stent removal - Constitutional Constitutional: Denies chills, Denies fever - EENT Eyes: denies blurred vision, denies pain Ears, nose, mouth and throat: Denies headache, Denies sore throat - Cardiovascular Cardiovascular: Denies chest pain, Denies shortness of breath - Respiratory Respiratory: Denies cough, Denies 7 - Gastrointestinal Gastrointestinal: Denies abdominal pain, Denies diarrhea, Denies nausea, Denies vomiting - Genitourinary (Female) Genitourinary: Denies dysuria, Denies hematuria - Genitourinary (Male) Genitourinary: Denies dysuria, Denies hematuria - Musculoskeletal Musculoskeletal: Denies myalgias - Integumentary Integumentary: Denies pruritus, Denies rash - Neurological Neurological: Denies numbness, Denies weakness - Psychiatric Psychiatric: Denies anxiety, Denies depression - Endocrine Endocrine: Denies fatigue, Denies weight change Past Medical History Additional Past Medical History / Comment(s): positive Covid 19 on 01/23/20, had loss of smell, currently asymptomatic, hx Kidney Stones History of Any Multi-Drug Resistant Organisms: None Reported Additional Past Surgical History / Comment(s): cystoscopy, rt renal stent, 01/24/20. Kidney Stone removed , wisdom teeth Past Anesthesia/Blood Transfusion Reactions: No Reported Reaction Smoking Status: Never smoker - Past Family History Brother(s) Family Medical History: Cancer Additional Family Medical History / Comment(s): testicular Father Family Medical History: Cancer Additional Family Medical History / Comment(s): mesothelioma Son(s) Family Medical History: Cancer Additional Family Medical History / Comment(s): leukemia Medications and Allergies Home Medications Medication Instructions Recorded Confirmed Type Multivitamins, Thera [Multivitamin 1 tab PO DAILY 01/23/20 02/03/20 History (formulary)] Norlyda 0.35mg 1 tab PO DAILY 01/23/20 02/03/20 History Acetaminophen Tab [Tylenol] 650 mg PO Q6HR PRN tab 01/25/20 02/03/20 Rx Ascorbic Acid [Vitamin C] 500 mg PO DAILY #30 tablet 01/25/20 02/03/20 Rx Famotidine [Pepcid] 20 mg PO BID #60 tablet 01/25/20 02/03/20 Rx Hydrocodone/Acetaminophen [[place] 1 each PO Q4HR PRN #10 tab 01/25/20 02/03/20 Rx 5-325] Zinc Sulfate 220 mg PO DAILY #30 capsule 01/25/20 02/03/20 Rx Ketorolac [Toradol] 10 mg PO Q6HR PRN 02/03/20 02/03/20 History Allergies Allergy/AdvReac Type Severity Reaction Status Date / Time No Known Allergies Allergy Verified 02/03/20 17:19 Surgical - Exam - General well developed, well nourished, no distress - Eyes PERRL - ENT no hearing loss - Neck no masses - Respiratory normal expansion, normal respiratory effort - Cardiovascular Rhythm: regular - Abdomen Abdomen: soft, non tender - Integumentary no rash, no growths - Neurologic normal coordination, normal sensation - Musculoskeletal normal gait, normal posture - Psychiatric oriented to time, oriented to person, oriented to place, speech is normal, memory intact Results - Imaging CT scan - abdomen: report reviewed, image reviewed CT scan - pelvis: report reviewed, image reviewed Assessment and Plan Assessment: Impression: Right ureteral stone with stent. recent uti with sepsis Plan: Right ureteroscopy with laser lithotripsy stone and stent removal
[~2020-02-10 08:46] MED LIST changes: +AMPICILLIN 1,000 MG in SODIUM CHLORIDE 0.9% 50 ML IVPB PRN; +GENTAMICIN 80 MG in SODIUM CHLORIDE 0.9% 100 ML IVPB PRN; +HYDROmorphone 0.5 MG/0.5 ML SYRINGE IVP PRN; -LIDOCAINE 1% 20 ML VIAL (10MG/ML) FOR IV START INTRADERMA PRN; -Pre Op ABX Message 1 EACH MISC MISCELLANE ONE
--- NOTE | 2020-02-10 09:15 | XR ---
KUB HISTORY: Kidney stone Frontal KUB and 2 images correlated prior KUB 01/23/2020, CT 01/23/2020 Double-J stent is been placed in the interval on the right. Lung bases are clear. Retained fecal debr is present throughout the distribution of the colon. Possible calcification superimposed over the rig ht L5 transverse process level as on prior CT measuring approximately 9 to 10 mm. Calcification in le ft hemipelvis may represent phlebolith. IMPRESSION: Suspect there is a stable right mid ureteral calculus.
[2020-02-10] MEDS ORDERED: ONDANSETRON 4 MG/2 ML VIAL ONE (09:19)
[2020-02-10] MEDS ORDERED: DEXAMETHASONE SOD PHOSPHATE 4 MG/ML 1 ML VIAL IV ONE (09:41)
[2020-02-10] MEDS ORDERED: ONDANSETRON 4 MG/2 ML VIAL IVP ONE (09:41)
[2020-02-10] MEDS ORDERED: MIDAZOLAM 2 MG/2 ML VIAL ONE (10:04)
[2020-02-10] MEDS ORDERED: PHENYLEPHRINE-0.9% NACL SYG 1 MG/10 ML SYRINGE ONE (10:04)
[2020-02-10] MEDS ORDERED: PROPOFOL 10 MG/ML 20 ML VIAL IV ONE (10:04)
[2020-02-10] MEDS ORDERED: fentaNYL (PF) 50 MCG/ML 2 ML AMP ONE (10:04)
[2020-02-10] MEDS ORDERED: KETOROLAC 15 MG/ML 1 ML VIAL ONE (10:04)
[2020-02-10] MEDS ORDERED: LIDOCAINE 1% INJ 10MG/ML (20 ML MDV) ONE (10:04)
--- NOTE | 2020-02-10 10:56 | P.OP ---
Date of Procedure: 02/10/20 Preoperative Diagnosis: Right ureteral stone Postoperative Diagnosis: Same Procedure(s) Performed: Cystoscopy, removal double-J catheter right, right ureteroscopy laser lithotripsy and stone basket Anesthesia: ALEJANDRA Surgeon: Chriss Fox Estimated Blood Loss (ml): 0 Pathology: other (Stone) Condition: stable Disposition: PACU Indications for Procedure: The patient is 39. 2 weeks ago she dropped a 10 mm stone in her mid ureter on the right with urinary tract infection with sepsis. placed a stent. She now comes for formal right stone and stent removal. Description of Procedure: The patient is brought to the operating suite. She's given general anesthesia. She's placed lithotomy position with sterile prep and drape. Under fluoroscopy the right ureteral stent and stone are seen. The bladder is then intubated with a 21-Jamaican sheath and Foroblique lens. It is irrigated thoroughly. The ureteral catheters pulled the urethral meatus and an 035 wires passed through the catheter up into the renal pelvis. Alongside the catheter is then passed the 7-Jamaican mini ureteroscope to the stone. With the 270 laser probe all fragments up. I basket the largest fragments. There does not appear to be enough edema to leave a double-J catheter. Then the procedure there is no significant stone remaining. The wires removed the bladder strain the patient awake and returned recovery room good condition. Stone fragments are sent to pa thology Impression successful right ureteroscopy laser lithotripsy stent and stone removal.
[2020-02-10] MEDS ORDERED: HYDROmorphone 0.5 MG/0.5 ML SYRINGE IVP ONE ×3 (11:02→11:20)
[2020-02-10 11:07] VITALS: TEMP 97
[2020-02-10] MEDS: fentaNYL (PF) 50 MCG/ML 2 ML AMP IVP ONE ×2 (11:30→11:45)
--- NOTE | 2020-02-10 11:54 | FL ---
Fluoroscopy HISTORY: Lithotripsy 7 seconds fluoroscopy time supplied to the referring clinician. 1 intraoperative C-arm images docume nt the procedure. See dictated report from urology.
[2020-02-10 12:52] VITALS: PULSE 88; RESP 20
[2020-02-10 13:33] VITALS: BP 111/77
== END 2020-02-10 13:47 | disposition home or self-care (01) ==
LOC: OR 08:46
PROVIDERS: ATTEND Urology
DX: Z46.6 Encounter for fitting and adjustment of urinary device (principal); N20.1 Calculus of ureter; Z87.442 Personal history of urinary calculi; Z98.890 Other specified postprocedural states; Z80.43 Family history of malignant neoplasm of testis; Z80.2 Family history of malignant neoplasm of other respiratory and intrathoracic organs; Z80.6 Family history of leukemia; Z79.3 Long term (current) use of hormonal contraceptives; Z79.899 Other long term (current) drug therapy
CPT/HCPCS: 81025; 82365; 74018; 52353; C1769; J2250; J1100; J2405; J2001; J3010; J1580; J0290; J1885; J2370; J2704; J1170

== ENCOUNTER → 2020-02-22 | Outpatient (CLI) | payer BC ==
[2020-02-22 14:41] LABS: Basophils % (A) 1 %; Eosinophils # (A) 0.1 k/uL (0-0.7); Eosinophils % (A) 2 %; HCT 43.7 % (34.0-46.0); Lymphocytes # (A) 2.2 k/uL (1.0-4.8); Lymphocytes % (A) 32 %; MCH 30.6 pg (25.0-35.0); MCHC 34.4 g/dL (31.0-37.0); MCV 89.1 fL (80.0-100.0); Mean Platelet Volume 7.1; Monocytes # (A) 0.2 k/uL (0-1.0); Monocytes % (A) 3 %; Neutrophils # (A) 4.2 k/uL (1.3-7.7); Neutrophils % (A) 60 %; Platelet Count 280 k/uL (150-450); RBC 4.91 m/uL (3.80-5.40); RDW 12.7 % (11.5-15.5); WBC 6.9 k/uL (3.8-10.6)
[2020-02-22 14:47] LABS: Potassium 4.2 mmol/L (3.5-5.1)
== END | disposition home or self-care (01) ==
LOC: LABPAT 13:19
PROVIDERS: ATTEND Urology
DX: Z01.818 Encounter for other preprocedural examination (principal); N20.0 Calculus of kidney; R31.29 Other microscopic hematuria
CPT/HCPCS: 80051; 82565; 84520; 85025

== ENCOUNTER 2020-02-29 07:07 | Day surgery (SDC) | payer BC ==
[2020-02-25 08:56] VITALS: BMI 21.9
--- NOTE | 2020-02-26 08:46 | P.GSHP ---
History of Present Illness H&P Date: 02/26/20 39 yo female with a history of stones. SHe recently had an infected right ureteral stone removed. She has two 4mm llp stones that she wants eswl for. the alternatives have been explained. - Constitutional Constitutional: Denies chills, Denies fever - EENT Eyes: denies blurred vision, denies pain Ears, nose, mouth and throat: Denies headache, Denies sore throat - Cardiovascular Cardiovascular: Denies chest pain, Denies shortness of breath - Respiratory Respiratory: Denies cough, Denies 7 - Gastrointestinal Gastrointestinal: Denies abdominal pain, Denies diarrhea, Denies nausea, Denies vomiting - Genitourinary (Female) Genitourinary: Denies dysuria, Denies hematuria - Genitourinary (Male) Genitourinary: Denies dysuria, Denies hematuria - Musculoskeletal Musculoskeletal: Denies myalgias - Integumentary Integumentary: Denies pruritus, Denies rash - Neurological Neurological: Denies numbness, Denies weakness - Psychiatric Psychiatric: Denies anxiety, Denies depression - Endocrine Endocrine: Denies fatigue, Denies weight change Past Medical History Additional Past Medical History / Comment(s): Kidney Stones. pt states current UTI with tx -Bactrim History of Any Multi-Drug Resistant Organisms: None Reported Additional Past Surgical History / Comment(s): Kidney Stone Removed 02/10/20. wisdom teeth Past Anesthesia/Blood Transfusion Reactions: No Reported Reaction Smoking Status: Never smoker - Past Family History Brother(s) Family Medical History: Cancer Additional Family Medical History / Comment(s): testicular Father Family Medical History: Cancer Additional Family Medical History / Comment(s): mesothelioma Son(s) Family Medical History: Cancer Additional Family Medical History / Comment(s): leukemia Medications and Allergies Home Medications Medication Instructions Recorded Confirmed Type Multivitamins, Thera [Multivitamin 1 tab PO DAILY 01/23/20 02/25/20 History (formulary)] Norlyda 0.35mg 1 tab PO HS 01/23/20 02/25/20 History Acetaminophen Tab [Tylenol] 650 mg PO Q6HR PRN tab 01/25/20 02/25/20 Rx Sulfamethox-Tmp 800-160Mg [Bactrim 1 tab PO Q12HR 02/25/20 02/25/20 History DS 800-160 mg] Allergies Allergy/AdvReac Type Severity Reaction Status Date / Time No Known Allergies Allergy Verified 02/25/20 08:44 Surgical - Exam - General well developed, well nourished - Eyes PERRL - ENT no hearing loss - Neck no masses - Respiratory normal expansion, normal respiratory effort - Cardiovascular Rhythm: regular - Abdomen Abdomen: soft, non tender - Integumentary no rash, no growths - Neurologic normal coordination, normal sensation - Musculoskeletal normal gait, normal posture - Psychiatric oriented to time, oriented to person, oriented to place, speech is normal, memory intact Assessment and Plan Assessment: Impression: Left renal stones Plan: ESWL left
[~2020-02-29 07:07] MED LIST changes: -AMPICILLIN 1,000 MG in SODIUM CHLORIDE 0.9% 50 ML IVPB PRN; +DEXAMETHASONE SOD PHOSPHATE 4 MG/ML 1 ML VIAL IV ONE; -GENTAMICIN 80 MG in SODIUM CHLORIDE 0.9% 100 ML IVPB PRN; +ONDANSETRON 4 MG/2 ML VIAL IVP ONE
--- NOTE | 2020-02-29 07:23 | XR ---
EXAMINATION TYPE: XR KUB DATE OF EXAM: 02/29/2020 HISTORY: Pain Comparison: 02/10/2020 Single KUB is submitted for interpretation. Findings: Right renal calculi: None Visualized. Right ureteral calculi: Right ureteral stent has been removed. Previously noted mid right ureteral calculus is no longer visi ble. No new calculi identified. Left renal calculi: None Visualized. Left ureteral calculi: None Visualized. Pelvic calcifications: None Visualized. Bowel gas pattern is unremarkable. No free air. No mass effects. IMPRESSION: 1. Right ureteral stent has been removed. Previously noted mid right ureteral calculus is no longer v isible. No new calculi identified.
[2020-02-29 07:35] VITALS: TEMP 97.5
[2020-02-29] MEDS ORDERED: LIDOCAINE 1% (10MG/ML) FOR IV START INTRADERMA ONE (07:35)
[2020-02-29] MEDS ORDERED: MIDAZOLAM 2 MG/2 ML VIAL ONE (08:22)
[2020-02-29] MEDS ORDERED: PROPOFOL 10 MG/ML 20 ML VIAL IV ONE (08:22)
[2020-02-29] MEDS ORDERED: fentaNYL (PF) 50 MCG/ML 2 ML AMP ONE (08:22)
--- NOTE | 2020-02-29 09:06 | P.OP ---
Date of Procedure: 02/29/20 Preoperative Diagnosis: Left renal calculi Postoperative Diagnosis: Same Procedure(s) Performed: Left extracorporal shockwave lithotripsy (ESWL) Anesthesia: MAC Surgeon: Yobany Malloy Estimated Blood Loss (ml): 0 IV fluids (ml): 400 Pathology: none sent Condition: stable Disposition: PACU Indications for Procedure: The patient is a 39-year-old white female who recently underwent ureteroscopic removal of a right ureteral calculus. She has also been found to have 2 left lower pole renal calculi, measuring approximately 4 mm each. She has elected to undergo ESWL. Operative Findings: The calculi are poorly visualized but appear to fragment. Description of Procedure: The patient was taken to the operating room and placed on the [employer] Delta II lithotripter in the supine position. The calculi were seen on biplanar fluoroscopy, though visualization of the calculi was limited due to significant intestinal gas. Once the patient was properly positioned and sedated, lithotripsy was performed. The energy level was gradually increased per protocol, to an energy level of 5. After 200 shocks were administered, a 2 minute pause was instituted per protocol. A total of 2000 shocks were given at a rate of 80 shocks per minute. Fluoroscopy was utilized at a minimum to ensure proper positioning and determine the treatment status. The appearance of the calculus appeared to change, suggesting fragmentation had occurred. The patient tolerated the procedure well was taken to the recovery room in stable condition. Instructions were given to strain the urine, and the patient will follow-up within one week.
[2020-02-29 09:07] VITALS: RESP 16
[2020-02-29 09:27] VITALS: BP 104/62; PULSE 66
== END 2020-02-29 10:10 | disposition home or self-care (01) ==
LOC: ORWHC2ENDO 07:07
PROVIDERS: ATTEND Urology
DX: N20.0 Calculus of kidney (principal); N39.0 Urinary tract infection, site not specified; Z87.442 Personal history of urinary calculi; Z79.3 Long term (current) use of hormonal contraceptives; Z98.890 Other specified postprocedural states; Z78.9 Other specified health status; Z80.43 Family history of malignant neoplasm of testis; Z80.8 Family history of malignant neoplasm of other organs or systems; Z80.6 Family history of leukemia
CPT/HCPCS: 81025; 74018; 50590; J2250; J1100; J2405; J3010; J2704

== ENCOUNTER → 2020-03-08 | Outpatient (CLI) | payer BC ==
--- NOTE | 2020-03-08 15:39 | XR ---
EXAMINATION TYPE: XR abdomen 1V DATE OF EXAM: 03/08/2020 COMPARISON: 02/29/2020 HISTORY: Renal calculus left side TECHNIQUE: AP abdomen FINDINGS: There is a 0.5 cm density overlying the mid left kidney may be a renal stone present previo usly. There may be a new punctate calcification in the inferior left hemipelvis measuring 0.2 cm. Psoas margins are normal. Organomegaly is not present. Normal bowel gas is. IMPRESSION: 1. Left-sided renal stone with possibly distal left ureteral stone
== END | disposition home or self-care (01) ==
LOC: RADXRMAIN 14:18
PROVIDERS: ATTEND Urology
DX: N20.0 Calculus of kidney (principal)
CPT/HCPCS: 74018

== ENCOUNTER → 2020-04-01 | Outpatient (CLI) | payer BC ==
--- NOTE | 2020-04-01 09:32 | XR ---
EXAMINATION TYPE: XR KUB DATE OF EXAM: 04/01/2020 COMPARISON: 03/08/2020 HISTORY: Left renal stone TECHNIQUE: One view abdominal series FINDINGS: The osseous structures are intact. The bowel gas pattern is nonspecific. Retained fecal debris throu ghout the colon. Tiny calcification pelvis 2 small to characterize. There are 2 calcifications overly ing the left upper quadrant the largest measuring 5 mm stable from prior exam. IMPRESSION: 1. There are two small 5 mm and a 2 mm nodule in the left upper quadrant similar in appearance to the prior exam compatible with small renal calculi..
== END | disposition home or self-care (01) ==
LOC: RADXRMAIN 09:07
PROVIDERS: ATTEND Urology
DX: N20.1 Calculus of ureter (principal)
CPT/HCPCS: 74018

== ENCOUNTER → 2020-04-20 | Outpatient (CLI) | payer BC | END | disposition home or self-care (01) | LOC: LABWHC1 09:54 | PROVIDERS: ATTEND Urology | DX: N20.0 Calculus of kidney (principal) | CPT/HCPCS: 36415 ==

== ENCOUNTER → 2020-06-30 | Outpatient (CLI) | payer BC | END | disposition home or self-care (01) | LOC: LABWHC1 09:56 | PROVIDERS: ATTEND Urology | DX: N20.0 Calculus of kidney (principal) | CPT/HCPCS: 36415 ==

== ENCOUNTER → 2021-01-03 | Outpatient (CLI) | payer BC ==
--- NOTE | 2021-01-04 10:37 | MM ---
Reason for exam: screening (asymptomatic). Last mammogram was performed 4 years and 6 months ago. History: Patient had first child at age 30. Family history of breast cancer in maternal grandmother. Taking hormonal contraceptives for 5 years beginning at age 30. Physical Findings: A clinical breast exam by your physician is recommended on an annual basis and results should be correlated with mammographic findings. MG 3D Screening Mammo W/Cad Bilateral CC and MLO view(s) were taken. Prior study comparison: July 13, 2016, bilateral MG 3d diag mammo w/cad [facility]. The breast tissue is extremely dense which could obscure a lesion on mammography. There is no discrete abnormality. No significant changes when compared with prior studies. ASSESSMENT: Negative, BI-RAD 1 RECOMMENDATION: Routine screening mammogram of both breasts in 1 year.
== END | disposition home or self-care (01) ==
LOC: RADMAMWWP 09:58
PROVIDERS: ATTEND Obstetrics & Gynecology
DX: Z12.31 Encounter for screening mammogram for malignant neoplasm of breast (principal); Z80.3 Family history of malignant neoplasm of breast
CPT/HCPCS: 77063; 77067

== ENCOUNTER → 2021-01-16 | Outpatient (CLI) | payer BC ==
--- NOTE | 2021-01-17 09:18 | XR ---
EXAMINATION TYPE: XR KUB DATE OF EXAM: 01/16/2021 4:36 PM CLINICAL HISTORY: History of kidney stones. TECHNIQUE: Two supine KUB images of the abdomen are obtained. COMPARISON: Abdominal x-ray April 01, 2020. Most recent CT January 23, 2020. FINDINGS: Less well-seen but likely stable 6 mm calculus in the left kidney at L2 level centrally on current study. Current exam is suboptimal as there is more overlying colonic fecal material. Known le ft renal calculus seen better on CT. Overall nonobstructive bowel gas pattern. Lung bases are clear. Osseous structures are intact. Tubula r shaped gas filled structure overlying the lower pelvis incidentally noted consistent with tampon. IMPRESSION: As above.
== END | disposition home or self-care (01) ==
LOC: RADXRMAIN 16:15
PROVIDERS: ATTEND Urology
DX: N20.0 Calculus of kidney (principal)
CPT/HCPCS: 74018

== ENCOUNTER → 2022-04-02 | Outpatient (CLI) | payer BC ==
--- NOTE | 2022-04-03 08:44 | MM ---
Reason for Exam: Screening (asymptomatic). Last mammogram was performed 1 year(s) and 3 month(s) ago. Patient History: Menarche at age 11. First Full-Term at age 30. Late child-bearing (after 28). Currently using Hormonal Contraceptives, beginning at age 30 for 5 years. Maternal grandmother had breast cancer. Last menstrual period: 03/24/2021 Risk Values: Svetlana 5 year model risk: 1.0%. NCI Lifetime model risk: 13.2%. Prior Study Comparison: 07/13/2016 Bilateral Diagnostic Mammogram, [facility]. 01/03/2021 Bilateral Screening Mammogram, [facility]. Tissue Density: The breast tissue is heterogeneously dense. This may lower the sensitivity of mammography. Findings: Analyzed By CAD. There is no suspicious group of microcalcifications or new suspicious mass in either breast. Overall Assessment: Negative, BI-RAD 1 Management: Screening Mammogram of both breasts in 1 year. A clinical breast exam by your physician is recommended on an annual basis and results should be correlated with mammographic findings. Electronically signed and approved by: Estuardo Patrick M.D. Radiologis
== END | disposition home or self-care (01) ==
LOC: RADMAMWWP 10:17
PROVIDERS: ATTEND Obstetrics & Gynecology
DX: Z12.31 Encounter for screening mammogram for malignant neoplasm of breast (principal); Z80.3 Family history of malignant neoplasm of breast
CPT/HCPCS: 77063; 77067

== ENCOUNTER → 2023-01-17 | Outpatient (CLI) | payer BC ==
--- NOTE | 2023-01-17 11:49 | XR ---
EXAMINATION TYPE: XR KUB DATE OF EXAM: 01/17/2023 COMPARISON: KUB 01/16/2021 HISTORY: Calculus of kidney TECHNIQUE: Single supine KUB image of the abdomen is obtained FINDINGS: Small bowel demonstrates no evidence for dilatation or air fluid levels. Gas and fecal material is seen in non-distended colon. No definitive renal or ureteral calculi. Stool overlies both kidney locations. Stable left pelvic phl ebolith. The osseous structures are intact. IMPRESSION: 1. Overall nonobstructive bowel gas pattern. 2. No definitive renal or ureteral calculi. Examination is limited due to overlying stool.
== END | disposition home or self-care (01) ==
LOC: RADXRMAIN 10:28
PROVIDERS: ATTEND Urology
DX: R14.0 Abdominal distension (gaseous) (principal); Z87.442 Personal history of urinary calculi
CPT/HCPCS: 74018

== ENCOUNTER 2023-03-03 08:54 | Emergency (ER) | payer BC ==
[2023-03-03] MEDS ORDERED: ONDANSETRON 4 MG/2 ML VIAL IVP STA (09:21)
[2023-03-03] MEDS ORDERED: SODIUM CHLORIDE 0.9% 1,000 ML IV STA (09:21)
[2023-03-03] MEDS ORDERED: KETOROLAC 15 MG/ML 1 ML VIAL IVP STA (09:21)
[2023-03-03] MEDS ORDERED: MORPHINE SULFATE 4 MG/ML SYRINGE IVP STA (09:33)
--- NOTE | 2023-03-03 09:37 | ED ---
Abdominal Pain HPI - General Chief Complaint: Abdominal Pain Stated Complaint: KIDNEY STONE Time Seen by Provider: 03/03/23 09:03 Source: patient, RN notes reviewed Mode of arrival: ambulatory Limitations: no limitations - History of Present Illness Initial Comments: This is a 42-year-old female who presents to the emergency department for left flank pain. Symptoms began this morning. Reports associated nausea and vomiting. States that her urine appears much darker. She has a history of kidney stones, most recently a few years ago, and states that this feels the same. Denies any fevers/chills. She did take Toradol before arrival with no relief in symptoms. This was left over from a prescription a few years ago, and she is almost out of this. MD Complaint: flank pain - Related Data Home Medications Medication Instructions Recorded Confirmed Multivitamins, Thera [Multivitamin 1 tab PO DAILY 01/23/20 02/25/20 (formulary)] Norlyda 0.35mg 1 tab PO HS 01/23/20 02/25/20 Previous Rx's Medication Instructions Recorded Acetaminophen Tab [Tylenol] 650 mg PO Q6HR PRN tab 01/25/20 Hydrocodone/Acetaminophen [Troy 1 - 2 each PO Q4HR PRN #12 tab 02/29/20 5-325] HYDROcodone/APAP 5-325MG [Troy 1 tab PO Q6HR PRN 3 Days #12 tab 03/03/23 5-325] Ketorolac [Toradol] 10 mg PO Q6HR PRN #15 tab 03/03/23 Ondansetron Odt [Zofran Odt] 4 mg PO Q8HR PRN #20 tab 03/03/23 Tamsulosin [Flomax] 0.4 mg PO DAILY #10 cap 03/03/23 Allergies Allergy/AdvReac Type Severity Reaction Status Date / Time No Known Allergies Allergy Verified 03/03/23 09:00 Review of Systems ROS Statement: Those systems with pertinent positive or pertinent negative responses have been documented in the HPI. ROS Other: All systems not noted in ROS Statement are negative. Past Medical History Additional Past Medical History / Comment(s): Prior Kidney Stones History of Any Multi-Drug Resistant Organisms: None Reported Additional Past Surgical History / Comment(s): Kidney Stone Removed . wisdom teeth Past Anesthesia/Blood Transfusion Reactions: No Reported Reaction Past Psychological History: Anxiety, Depression Smoking Status: Never smoker Past Alcohol Use History: Occasional Past Drug Use History: None Reported - Past Family History Brother(s) Family Medical History: Cancer Additional Family Medical History / Comment(s): testicular Father Family Medical History: Cancer Additional Family Medical History / Comment(s): mesothelioma Son(s) Family Medical History: Cancer Additional Family Medical History / Comment(s): leukemia General Exam Limitations: no limitations General appearance: alert, in no apparent distress Head exam: Present: atraumatic, normocephalic, normal inspection Respiratory exam: Present: normal lung sounds bilaterally. Absent: respiratory distress, wheezes, rales, rhonchi, stridor Cardiovascular Exam: Present: regular rate, normal rhythm, normal heart sounds. Absent: systolic murmur, diastolic murmur, rubs, gallop, clicks GI/Abdominal exam: Present: soft, normal bowel sounds. Absent: distended, tenderness, guarding, rebound, rigid Back exam: Present: CVA tenderness (L). Absent: CVA tenderness (R) Neurological exam: Present: alert, oriented X3, CN II-XII intact Psychiatric exam: Present: normal affect, normal mood Skin exam: Present: warm, dry, intact, normal color. Absent: rash Course Vital Signs 03/03/23 03/03/23 03/03/23 08:59 10:16 12:31 Temperature 98.4 F 97.9 F Pulse Rate 89 83 98 Respiratory 20 22 18 Rate Blood Pressure 120/80 129/72 131/73 O2 Sat by Pulse 99 100 98 Oximetry Medical Decision Making - Medical Decision Making This is a 42-year-old female who presents to the emergency department for left flank pain. Was pt. sent in by a medical professional or institution? @ -No Did you speak to anyone other than the patient for history? @ -No Did you review nursing and triage notes? @ -Yes, and I agree, it is accurate with regards to the patient's symptoms. Were old charts reviewed? @ -No Differential Diagnosis? @ -Differential Flank Pain: UTI, pyelonephritis, kidney stone, musculoskeletal, pancreatitis, cholecystitis, this is not meant to be an all-inclusive list. EKG interpreted by me (3pts min.)? @ -Not obtained X-rays interpreted by me (1pt min.)? @ -Not obtained CT interpreted by me (1pt min.)? @ -Computed tomography scan of the abdomen and pelvis obtained. My inte rpretation identifies a left ureteral calculus. U/S interpreted by me (1pt. min.)? @ -Not obtained What testing was considered but not performed? (CT, X-rays, U/S, labs)? Why? @ -None What meds were considered but not given? Why? @ -None Did you discuss the management of the patient with other professionals? @ -No Did you reconcile home meds? @ -No Was smoking cessation discussed for >3mins.? @ -No Was critical care preformed (if so, how long)? @ -No Were there social determinants of health that impacted care today? How? (Homelessness, low income, unemployed, alcoholism, drug addiction, transportation, low edu. Level, literacy, decrease access to med. care, senior living, rehab)? @ -No Was there de-escalation of care discussed even if they declined? (Discuss DNR or withdrawal of care, Hospice)? @ -No What co-morbidities impacted this encounter? (DM, HTN, Smoking, COPD, CAD, Cancer, CVA, Hep., AIDS, mental health diagnosis, sleep apnea, morbid obesity)? @ -None Was patient admitted / discharged? @ -Discharged. Lab work obtained revealing no acute process. Urinalysis has a large amount of blood without evidence of infection. Computed tomography scan of the abdomen and pelvis obtained revealing mild left hydroureteronephrosis with a 7 mm obstructing calculus in the proximal ureter. A smaller stone upstream could not be excluded. Findings reviewed with the patient. Her symptoms were well controlled in the emergency department and she felt stable for discharge home. Prescription for Toradol, Troy, Flomax, and Zofran provided with dosing instructions reviewed. Otherwise advised follow-up with urology. Undiagnosed new problem with uncertain prognosis? @ -None Drug Therapy requiring intensive monitoring for toxicity (Heparin, Nitro, Insulin, Cardizem)? @ -None Were any procedures done? @ -None Diagnosis/symptom? @ -Ureteral calculus Acute, or Chronic, or Acute on Chronic? @ -Acute Uncomplicated (without systemic symptoms) or Complicated (systemic symptoms)? @ -Uncomplicated Side effects of treatment? @ -None Exacerbation, Progression, or Severe Exacerbation] @ -Not applicable Poses a threat to life or bodily function? @ -No Return precautions reviewed in depth, the patient is instructed to return to the emergency department with any new, worsening, or concerning symptoms. Patient verbalized understanding. This case was discussed in detail with the attending ED physician, Dr. Villegas. Presentation, findings, and treatment plan discussed in detail as well. - Lab Data Result diagrams: 03/03/23 09:26 03/03/23 09: Lab Results 03/03/23 03/03/23 03/03/23 Range/Units 09:26 09: 09: WBC 8.8 (3.8-10.6) k/uL RBC 4.71 (3.80-5.40) m/uL Hgb 14.8 (11.4-16.0) gm/dL Hct 41.5 (34.0-46.0) % MCV 88.2 (80.0-100.0) fL MCH 31.5 (25.0-35.0) pg MCHC 35.8 (31.0-37.0) g/dL RDW 12.5 (11.5-15.5) % Plt Count 206 (150-450) k/uL MPV 8.0 Neutrophils % 83 % Lymphocytes % 12 % Monocytes % 3 % Eosinophils % 1 % Basophils % 0 % Neutrophils # 7.3 (1.3-7.7) k/uL Lymphocytes # 1.1 (1.0-4.8) k/uL Monocytes # 0.3 (0-1.0) k/uL Eosinophils # 0.1 (0-0.7) k/uL Basophils # 0.0 (0-0.2) k/uL Sodium (137-145) mmol/L Potassium (3.5-5.1) mmol/L Chloride (98-107) mmol/L Carbon Dioxide (22-30) mmol/L Anion Gap mmol/L BUN (7-17) mg/dL Creatinine (0.52-1.04) mg/dL Est GFR (CKD-EPI)AfAm (>60 ml/min/1.73 sqM) Est GFR (CKD-EPI)NonAf (>60 ml/min/1.73 sqM) Glucose (74-99) mg/dL Plasma Lactic Acid Jefferson (0.7-2.0) mmol/L Calcium (8.4-10.2) mg/dL Total Bilirubin (0.2-1.3) mg/dL AST (14-36) U/L ALT (4-34) U/L Alkaline Phosphatase (38-126) U/L Total Protein (6.3-8.2) g/dL Albumin (3.5-5.0) g/dL Amylase (30-110) U/L Lipase (23-300) U/L Urine Color Yellow Urine Appearance Turbid H (Clear) Urine pH 7.5 (5.0-8.0) Ur Specific [place] 1.018 (1.001-1.035) Urine Protein Trace H (Negative) Urine Glucose (UA) Negative (Negative) Urine Ketones Negative (Negative) Urine Blood Large H (Negative) Urine Nitrite Negative (Negative) Urine Bilirubin Negative (Negative) Urine Urobilinogen <2.0 (<2.0) mg/dL Ur Leukocyte Esterase Trace H (Negative) Urine RBC >182 H (0-5) /hpf Urine WBC 13 H (0-5) /hpf Ur Squamous Epith Cells 13 H (0-4) /hpf Urine Bacteria Rare H (None) /hpf Urine Mucus Rare H (None) /hpf Urine HCG, Qual Not Detected (Not Detectd) 03/03/23 03/03/23 Range/Units 09:26 09:26 WBC (3.8-10.6) k/uL RBC (3.80-5.40) m/uL Hgb (11.4-16.0) gm/dL Hct (34.0-46.0) % MCV (80.0-100.0) fL MCH (25.0-35.0) pg MCHC (31.0-37.0) g/dL RDW (11.5-15.5) % Plt Count (150-450) k/uL MPV Neutrophils % % Lymphocytes % % Monocytes % % Eosinophils % % Basophils % % Neutrophils # (1.3-7.7) k/uL Lymphocytes # (1.0-4.8) k/uL Monocytes # (0-1.0) k/uL Eosinophils # (0-0.7) k/uL Basophils # (0-0.2) k/uL Sodium 131 L (137-145) mmol/L Potassium 4.1 (3.5-5.1) mmol/L Chloride 101 (98-107) mmol/L Carbon Dioxide 17 L (22-30) mmol/L Anion Gap 13 mmol/L BUN 18 H (7-17) mg/dL Creatinine 0.78 (0.52-1.04) mg/dL Est GFR (CKD-EPI)AfAm >90 (>60 ml/min/1.73 sqM) Est GFR (CKD-EPI)NonAf >90 (>60 ml/min/1.73 sqM) Glucose 135 H (74-99) mg/dL Plasma Lactic Acid [place] 1.8 (0.7-2.0) mmol/L Calcium 9.1 (8.4-10.2) mg/dL Total Bilirubin 1.0 (0.2-1.3) mg/dL AST 23 (14-36) U/L ALT 17 (4-34) U/L Alkaline Phosphatase 53 (38-126) U/L Total Protein 6.4 (6.3-8.2) g/dL Albumin 4.1 (3.5-5.0) g/dL Amylase 51 (30-110) U/L Lipase 105 (23-300) U/L Urine Color Urine Appearance (Clear) Urine pH (5.0-8.0) Ur Specific [place] (1.001-1.035) Urine Protein (Negative) Urine Glucose (UA) (Negative) Urine Ketones (Negative) Urine Blood (Negative) Urine Nitrite (Negative) Urine Bilirubin (Negative) Urine Urobilinogen (<2.0) mg/dL Ur Leukocyte Esterase (Negative) Urine RBC (0-5) /hpf Urine WBC (0-5) /hpf Ur Squamous Epith Cells (0-4) /hpf Urine Bacteria (None) /hpf Urine Mucus (None) /hpf Urine HCG, Qual (Not Detectd) - Radiology Data Radiology results: report reviewed, image reviewed Disposition Clinical Impression: Left ureteral calculus Disposition: HOME SELF-CARE Instructions (If sedation given, give patient instructions): Renal Colic (ED), Ureteral Stones (ED) Additional Instructions: Return to the emergency department with any new, worsening, or concerning symptoms. Take the Toradol with Tylenol as needed for pain relief. If you choose to take the Toradol, do not take any other anti-inflammatories such as ibuprofen, take one or the other. Take the Troy sparingly when your pain is the most severe and be aware that it may make you drowsy. Take the Flomax daily. Take the Zofran up to every 8 hours as needed for nausea and vomiting. Follow up with urology as listed below. Prescriptions: Tamsulosin [Flomax] 0.4 mg PO DAILY #10 cap HYDROcodone/APAP 5-325MG [Troy 5-325] 1 tab PO Q6HR PRN 3 Days #12 tab PRN Reason: Pain Ketorolac [Toradol] 10 mg PO Q6HR PRN #15 tab PRN Reason: Pain Ondansetron Odt [Zofran Odt] 4 mg PO Q8HR PRN #20 tab PRN Reason: Nausea And Vomiting Is patient prescribed a controlled substance at d/c from ED?: Yes When asked, does pt state using other controlled substances?: No If prescribed controlled substance>3 days was MAPS reviewed?: Prescribed <3 Days Referrals: Stefan Mosquera DO [Primary Care Provider] - 1-2 days Chriss Fox MD [STAFF PHYSICIAN] - 1-2 days
[2023-03-03 09:59] LABS: Basophils % (A) 0 %; Eosinophils # (A) 0.1 k/uL (0-0.7); Eosinophils % (A) 1 %; HCT 41.5 % (34.0-46.0); HGB 14.8 gm/dL (11.4-16.0); Lymphocytes # (A) 1.1 k/uL (1.0-4.8); Lymphocytes % (A) 12 %; MCH 31.5 pg (25.0-35.0); MCHC 35.8 g/dL (31.0-37.0); MCV 88.2 fL (80.0-100.0); Monocytes # (A) 0.3 k/uL (0-1.0); Monocytes % (A) 3 %; Neutrophils # (A) 7.3 k/uL (1.3-7.7); Neutrophils % (A) 83 %; Platelet Count 206 k/uL (150-450); RBC 4.71 m/uL (3.80-5.40); RDW 12.5 % (11.5-15.5); WBC 8.8 k/uL (3.8-10.6)
[2023-03-03] MEDS ORDERED: HYDROmorphone 1 MG/ML 1 ML SYRINGE IVP STA (10:13)
[2023-03-03 10:29] LABS: Appearance,Urine Turbid (Clear); Bacteria,Urine Rare /hpf; Bilirubin,Urine Negative (Negative); Blood,Urine Large (Negative); Color,Urine Yellow; Glucose,Urine (UA) Negative (Negative); Ketones,Urine Negative (Negative); Leukocyte Esterase,Urine Trace (Negative); Mucus,Urine Rare /hpf; Nitrite,Urine Negative (Negative); PH, Urine 7.5 (5.0-8.0); Protein,Urine Trace (Negative); RBC,Urine >182 /hpf (0-5); Specific Gravity,Urine 1.018 (1.001-1.035); Squamous Epithelial Cell,Urine 13 /hpf (0-4); Urobilinogen,Urine <2.0 mg/dL (<2.0); WBC,Urine 13 /hpf (0-5)
[2023-03-03 10:37] LABS: ALT 17 U/L (4-34); AST 23 U/L (14-36); African American GFR (CKD) >90 (>60 ml/min/1.73 sqM); Albumin 4.1 g/dL (3.5-5.0); Alkaline Phosphatase 53 U/L (38-126); Amylase 51 U/L (30-110); Anion Gap 13 mmol/L; Blood Urea Nitrogen 18 mg/dL (7-17); Calcium 9.1 mg/dL (8.4-10.2); Carbon Dioxide 17 mmol/L (22-30); Chloride 101 mmol/L (98-107); Glucose 135 mg/dL (74-99); Lipase 105 U/L (23-300); Non-African American GFR(CKD) >90 (>60 ml/min/1.73 sqM); Potassium 4.1 mmol/L (3.5-5.1); Sodium 131 mmol/L (137-145); Total Protein 6.4 g/dL (6.3-8.2)
--- NOTE | 2023-03-03 11:11 | CT ---
EXAMINATION TYPE: CT abdomen pelvis wo con CT DLP: 353.4 mGycm, Automated exposure control for dose reduction was used. DATE OF EXAM: 03/03/2023 10:52 AM COMPARISON: 01/23/2020 CLINICAL INDICATION:Female, 42 years old with history of Left flank pain; Left flank pain, history of renal stones TECHNIQUE: Axial CT abdomen pelvis wo con;Sagittal and coronal reformats were created on a separate workstation. Contrast used: mL of , (none if empty) Oral contrast used: without Oral Contrast (none if empty) FINDINGS: LOWER CHEST: Unremarkable ABDOMEN LIVER: Unremarkable GALLBLADDER AND BILE DUCTS: Unremarkable. PANCREAS: Unremarkable. SPLEEN: Unremarkable. ADRENAL GLANDS: Unremarkable. KIDNEYS AND URETERS: Mild left hydroureteronephrosis secondary obstructing calculus in the proximal l eft ureter measuring 7 mm. This may actually be 2 adjacent stones with a smaller stone more upstream series 202 image 33.. Additional nonobstructing left calculus measuring 2 mm. No right renal calculi and no right hydronephrosis. PELVIS BLADDER: Unremarkable REPRODUCTIVE: Unremarkable. ABDOMEN & PELVIS STOMACH AND BOWEL: No evidence of bowel obstruction. The appendix is normal. PERITONEUM/RETROPERITONEUM: No evidence of pneumoperitoneum or free fluid. VASCULATURE: No evidence of aortic aneurysm. MUSCULOSKELETAL: No acute osseous abnormalities LYMPH NODES: No gross evidence for lymphadenopathy. SOFT TISSUE/ABDOMINAL WALL: Fat-containing umbilical hernia. IMPRESSION: Mild left hydroureteronephrosis secondary obstructing calculus in the proximal left ureter measuring 7 mm. There may be a smaller stone just upstream
[2023-03-03] MEDS ORDERED: HYDROcodone/APAP 7.5-325MG 1 EACH TAB PO ONE (11:16)
[2023-03-03] MEDS ORDERED: TAMSULOSIN 0.4 MG CAP.ER.24H PO STA (11:16)
[2023-03-03] MEDS ORDERED: ACET/COD 300 MG/30 MG STARTER PACK 6 TAB BTL PO STA (12:25)
[2023-03-03] MEDS ORDERED: IBUPROFEN 600 MG STARTER PACK 4 TAB BTL PO STA (12:25)
[2023-03-03] MEDS ORDERED: ONDANSETRON 4 MG ODT STARTER PACK 2 TAB BTL PO STA (12:25)
[2023-03-03 12:34] VITALS: BP 131/73; PULSE 98; RESP 18; TEMP 97.9
== END 2023-03-03 12:32 | disposition home or self-care (01) ==
LOC: EC 08:54
DX: N13.2 Hydronephrosis with renal and ureteral calculous obstruction (principal); Z86.59 Personal history of other mental and behavioral disorders
CPT/HCPCS: 36415; 80053; 82150; 83605; 83690; 85025; 81001; 81025; 87086; 74176; 96374; 96375 ×3; 96361 ×2; 99284; J2270; J2405; J1170; J1885; S0119

== ENCOUNTER 2023-03-04 18:23 | Inpatient (IN) | payer BC ==
--- NOTE | 2023-03-04 19:06 | ED ---
Back Pain HPI - General Chief Complaint: Abdominal Pain Stated Complaint: kidney stones Time Seen by Provider: 03/04/23 18:30 Source: patient, RN notes reviewed Mode of arrival: ambulatory Limitations: no limitations - History of Present Illness Initial Comments: This is a 42-year-old female who presents to the emergency department for left flank pain. Patient was evaluated here yesterday and diagnosed with a 7 mm stone in the left ureter. Her symptoms were controlled the emergency department and she wanted to go home for the holidays. However, she returns today because the pain has not gotten better with the Fromberg and Toradol prescribed. Her nausea has been controlled with the Zofran. She did require a lithotripsy in 2019. - Related Data Home Medications Medication Instructions Recorded Confirmed Multivitamins, Thera [Multivitamin 1 tab PO DAILY 01/23/20 02/25/20 (formulary)] Norlyda 0.35mg 1 tab PO HS 01/23/20 02/25/20 Previous Rx's Medication Instructions Recorded Acetaminophen Tab [Tylenol] 650 mg PO Q6HR PRN tab 01/25/20 Hydrocodone/Acetaminophen [[place] 1 - 2 each PO Q4HR PRN #12 tab 02/29/20 5-325] HYDROcodone/APAP 5-325MG [[place] 1 tab PO Q6HR PRN 3 Days #12 tab 03/03/23 5-325] Ketorolac [Toradol] 10 mg PO Q6HR PRN #15 tab 03/03/23 Ondansetron Odt [Zofran Odt] 4 mg PO Q8HR PRN #20 tab 03/03/23 Tamsulosin [Flomax] 0.4 mg PO DAILY #10 cap 03/03/23 Allergies Allergy/AdvReac Type Severity Reaction Status Date / Time No Known Allergies Allergy Verified 03/04/23 18:28 Review of Systems ROS Statement: Those systems with pertinent positive or pertinent negative responses have been documented in the HPI. ROS Other: All systems not noted in ROS Statement are negative. Past Medical History Additional Past Medical History / Comment(s): Prior Kidney Stones History of Any Multi-Drug Resistant Organisms: None Reported Additional Past Surgical History / Comment(s): Kidney Stone Removed . wisdom teeth Past Anesthesia/Blood Transfusion Reactions: No Reported Reaction Past Psychological History: Anxiety, Depression Smoking Status: Never smoker Past Alcohol Use History: Occasional Past Drug Use History: None Reported - Past Family History Brother(s) Family Medical History: Cancer Additional Family Medical History / Comment(s): testicular Father Family Medical History: Cancer Additional Family Medical History / Comment(s): mesothelioma Son(s) Family Medical History: Cancer Additional Family Medical History / Comment(s): leukemia General Exam Limitations: no limitations General appearance: alert, in distress Head exam: Present: atraumatic, normocephalic, normal inspection Respiratory exam: Present: normal lung sounds bilaterally. Absent: respiratory distress, wheezes, rales, rhonchi, stridor Cardiovascular Exam: Present: regular rate, normal rhythm, normal heart sounds. Absent: systolic murmur, diastolic murmur, rubs, gallop, clicks Back exam: Present: CVA tenderness (L). Absent: CVA tenderness (R) Neurological exam: Present: alert, oriented X3, CN II-XII intact Psychiatric exam: Present: normal affect, normal mood Skin exam: Present: warm, dry, intact, normal color. Absent: rash Course Vital Signs 03/04/23 03/04/23 03/05/23 18:26 22:39 00:31 Temperature 100.2 F H 100.1 F H 99.3 F Pulse Rate 114 H 103 H 96 Respiratory 18 18 18 Rate Blood Pressure 132/78 137/76 O2 Sat by Pulse 99 100 98 Oximetry Medical Decision Making - Medical Decision Making This is a 42-year-old female who presents to the emergency department for flank pain. Was pt. sent in by a medical professional or institution? @ -No Did you speak to anyone other than the patient for history? @ -No Did you review nursing and triage notes? @ -Yes, and I agree, it is accurate with regards to the patient's symptoms. Were old charts reviewed? @ -CT scan of the abdomen/pelvis from 03/03/23 demonstrating mild left hydroureteronephrosis secondary to obstructing calculus in the left proximal ureter measuring 7mm. It was also said that this may be 2 adjacent stones with a smaller stone upstream. Differential Diagnosis? @ -Differential Flank Pain: UTI, pyelonephritis, kidney stone, musculoskeletal, pancreatitis, cholecystitis, this is not meant to be an all-inclusive list. EKG interpreted by me (3pts min.)? @ -Not obtained X-rays interpreted by me (1pt min.)? @ -Not obtained CT interpreted by me (1pt min.)? @ -Not obtained U/S interpreted by me (1pt. min.)? @ -Not obtained What testing was considered but not performed? (CT, X-rays, U/S, labs)? Why? @ -None What meds were considered but not given? Why? @ -None Did you discuss the management of the patient with other professionals? @ -Yes, Dr. Fox, urology, who will evaluate the patient in the morning. Dr. London accepts the patient for admission to medicine. Did you reconcile home meds? @ -No Was smoking cessation discussed for >3mins.? @ -No Was critical care preformed (if so, how long)? @ -No Were there social determinants of health that impacted care today? How? (Homelessness, low income, unemployed, alcoholism, drug addiction, transportation, low edu. Level, literacy, decrease access to med. care, intermediate, rehab)? @ -No Was there de-escalation of care discussed even if they declined? (Discuss DNR or withdrawal of care, Hospice)? @ -No What co-morbidities impacted this encounter? (DM, HTN, Smoking, COPD, CAD, Cance r, CVA, Hep., AIDS, mental health diagnosis, sleep apnea, morbid obesity)? @ -Kidney stones Was patient admitted / discharged? @ -Admitted. CT scan from yesterday reviewed demonstrating mild left hydroureteronephrosis secondary to obstructing calculus in the left proximal ureter measuring 7mm. It was also said that this may be 2 adjacent stones with a smaller stone upstream. Lab work obtained revealing an SHANNON with a creatinine of 1.56 and eGFR of 40. Yesterday her kidney function was found to be normal. She has no leukocytosis. She has been tachycardic and her temperature was 100.2 on arrival, however this did not cross the febrile threshold of 100.4 degrees F in the emergency department. Given that the patient now has an SHANNON with uncontrollable pain, she was admitted to medicine for intractable pain related to the ureteral calculus and SHANNON. Consult placed for urology. Undiagnosed new problem with uncertain prognosis? @ -None Drug Therapy requiring intensive monitoring for toxicity (Heparin, Nitro, Insulin, Cardizem)? @ -None Were any procedures done? @ -None Diagnosis/symptom? @ -Left ureteral calculus, intractable pain, SHANNON Acute, or Chronic, or Acute on Chronic? @ -Acute Uncomplicated (without systemic symptoms) or Complicated (systemic symptoms)? @ -Complicated Side effects of treatment? @ -None Exacerbation, Progression, or Severe Exacerbation] @ -Not applicable Poses a threat to life or bodily function? @ -Yes This case was discussed in detail with the attending ED physician, Dr. Cramer. Presentation, findings, and treatment plan discussed in detail as well. - Lab Data Result diagrams: 03/04/23 18:53 03/04/23 18:53 Lab Results 03/04/23 03/04/23 03/04/23 Range/Units 18:53 18:53 18:53 WBC 10.1 (3.8-10.6) k/uL RBC 4.14 (3.80-5.40) m/uL Hgb 13.2 (11.4-16.0) gm/dL Hct 37.1 (34.0-46.0) % MCV 89.4 (80.0-100.0) fL MCH 31.9 (25.0-35.0) pg MCHC 35.6 (31.0-37.0) g/dL RDW 12.7 (11.5-15.5) % Plt Count 197 (150-450) k/uL MPV 7.9 Neutrophils % 89 % Lymphocytes % 7 % Monocytes % 3 % Eosinophils % 1 % Basophils % 0 % Neutrophils # 9.0 H (1.3-7.7) k/uL Lymphocytes # 0.7 L (1.0-4.8) k/uL Monocytes # 0.3 (0-1.0) k/uL Eosinophils # 0.1 (0-0.7) k/uL Basophils # 0.0 (0-0.2) k/uL Sodium 134 L (137-145) mmol/L Potassium 3.9 (3.5-5.1) mmol/L Chloride 103 (98-107) mmol/L Carbon Dioxide 21 L (22-30) mmol/L Anion Gap 10 mmol/L BUN 19 H (7-17) mg/dL Creatinine 1.56 H (0.52-1.04) mg/dL Est GFR (CKD-EPI)AfAm 46 (>60 ml/min/1.73 sqM) Est GFR (CKD-EPI)NonAf 40 (>60 ml/min/1.73 sqM) Glucose 134 H (74-99) mg/dL Plasma Lactic Acid [place] 0.5 L (0.7-2.0) mmol/L Calcium 8.7 (8.4-10.2) mg/dL Total Bilirubin 0.8 (0.2-1.3) mg/dL AST 31 (14-36) U/L ALT 17 (4-34) U/L Alkaline Phosphatase 47 (38-126) U/L Total Protein 5.8 L (6.3-8.2) g/dL Albumin 3.6 (3.5-5.0) g/dL Urine Color Urine Appearance (Clear) Urine pH (5.0-8.0) Ur Specific [place] (1.001-1.035) Urine Protein (Negative) Urine Glucose (UA) (Negative) Urine Ketones (Negative) Urine Blood (Negative) Urine Nitrite (Negative) Urine Bilirubin (Negative) Urine Urobilinogen (<2.0) mg/dL Ur Leukocyte Esterase (Negative) Urine RBC (0-5) /hpf Urine WBC (0-5) /hpf Ur Squamous Epith Cells (0-4) /hpf Urine Bacteria (None) /hpf Urine Mucus (None) /hpf Urine HCG, Qual (Not Detectd) 03/04/23 03/04/23 Range/Units 23:17 23:17 WBC (3.8-10.6) k/uL RBC (3.80-5.40) m/uL Hgb (11.4-16.0) gm/dL Hct (34.0-46.0) % MCV (80.0-100.0) fL MCH (25.0-35.0) pg MCHC (31.0-37.0) g/dL RDW (11.5-15.5) % Plt Count (150-450) k/uL MPV Neutrophils % % Lymphocytes % % Monocytes % % Eosinophils % % Basophils % % Neutrophils # (1.3-7.7) k/uL Lymphocytes # (1.0-4.8) k/uL Monocytes # (0-1.0) k/uL Eosinophils # (0-0.7) k/uL Basophils # (0-0.2) k/uL Sodium (137-145) mmol/L Potassium (3.5-5.1) mmol/L Chloride (98-107) mmol/L Carbon Dioxide (22-30) mmol/L Anion Gap mmol/L BUN (7-17) mg/dL Creatinine (0.52-1.04) mg/dL Est GFR (CKD-EPI)AfAm (>60 ml/min/1.73 sqM) Est GFR (CKD-EPI)NonAf (>60 ml/min/1.73 sqM) Glucose (74-99) mg/dL Plasma Lactic Acid [place] (0.7-2.0) mmol/L Calcium (8.4-10.2) mg/dL Total Bilirubin (0.2-1.3) mg/dL AST (14-36) U/L ALT (4-34) U/L Alkaline Phosphatase (38-126) U/L Total Protein (6.3-8.2) g/dL Albumin (3.5-5.0) g/dL Urine Color Light Yellow Urine Appearance Clear (Clear) Urine pH 5.5 (5.0-8.0) Ur Specific [place] 1.014 (1.001-1.035) Urine Protein Negative (Negative) Urine Glucose (UA) Negative (Negative) Urine Ketones 1+ H (Negative) Urine Blood Negative (Negative) Urine Nitrite Negative (Negative) Urine Bilirubin Negative (Negative) Urine Urobilinogen <2.0 (<2.0) mg/dL Ur Leukocyte Esterase Small H (Negative) Urine RBC 1 (0-5) /hpf Urine WBC 5 (0-5) /hpf Ur Squamous Epith Cells 3 (0-4) /hpf Urine Bacteria Rare H (None) /hpf Urine Mucus Rare H (None) /hpf Urine HCG, Qual Not Detected (Not Detectd) - Radiology Data Radiology results: report reviewed, image reviewed Disposition Clinical Impression: Left ureteral calculus, Intractable pain, SHANNON (acute kidney injury) Disposition: ADMITTED IP TO THIS HOSP
[2023-03-04 19:18] LABS: Basophils % (A) 0 %; Eosinophils # (A) 0.1 k/uL (0-0.7); Eosinophils % (A) 1 %; HCT 37.1 % (34.0-46.0); HGB 13.2 gm/dL (11.4-16.0); Lymphocytes # (A) 0.7 k/uL (1.0-4.8); Lymphocytes % (A) 7 %; MCH 31.9 pg (25.0-35.0); MCHC 35.6 g/dL (31.0-37.0); MCV 89.4 fL (80.0-100.0); Mean Platelet Volume 7.9; Monocytes # (A) 0.3 k/uL (0-1.0); Monocytes % (A) 3 %; Neutrophils % (A) 89 %; Platelet Count 197 k/uL (150-450); RBC 4.14 m/uL (3.80-5.40); RDW 12.7 % (11.5-15.5); WBC 10.1 k/uL (3.8-10.6)
[2023-03-04 19:32] LABS: ALT 17 U/L (4-34); AST 31 U/L (14-36); African American GFR (CKD) 46 (>60 ml/min/1.73 sqM); Albumin 3.6 g/dL (3.5-5.0); Alkaline Phosphatase 47 U/L (38-126); Anion Gap 10 mmol/L; Blood Urea Nitrogen 19 mg/dL (7-17); Calcium 8.7 mg/dL (8.4-10.2); Carbon Dioxide 21 mmol/L (22-30); Chloride 103 mmol/L (98-107); Glucose 134 mg/dL (74-99); Non-African American GFR(CKD) 40 (>60 ml/min/1.73 sqM); Potassium 3.9 mmol/L (3.5-5.1); Sodium 134 mmol/L (137-145); Total Bilirubin 0.8 mg/dL (0.2-1.3); Total Protein 5.8 g/dL (6.3-8.2)
[2023-03-04] MEDS ORDERED: SODIUM CHLORIDE 0.9% 1,000 ML IV STA (19:38)
[2023-03-04] MEDS ORDERED: HYDROmorphone 1 MG/ML 1 ML SYRINGE IVP STA (19:38)
[2023-03-04] MEDS ORDERED: ACETAMINOPHEN IV (For NPO) 1,000 MG in EMPTY BAG 1 BAG IVPB STA (22:54)
[2023-03-04] MEDS ORDERED: ACETAMINOPHEN TAB 325 MG TAB PO PRN (23:52)
[2023-03-04] MEDS ORDERED: NALOXONE 0.4 MG/ML 1 ML VIAL IV PRN (23:52)
[2023-03-04] MEDS ORDERED: ONDANSETRON 4 MG/2 ML VIAL IVP PRN (23:52)
[2023-03-05 00:16] LABS: Appearance,Urine Clear (Clear); Bacteria,Urine Rare /hpf; Bilirubin,Urine Negative (Negative); Blood,Urine Negative (Negative); Color,Urine Light Yellow; Glucose,Urine (UA) Negative (Negative); Ketones,Urine 1+ (Negative); Leukocyte Esterase,Urine Small (Negative); Mucus,Urine Rare /hpf; Nitrite,Urine Negative (Negative); PH, Urine 5.5 (5.0-8.0); Protein,Urine Negative (Negative); RBC,Urine 1 /hpf (0-5); Specific Gravity,Urine 1.014 (1.001-1.035); Squamous Epithelial Cell,Urine 3 /hpf (0-4); Urobilinogen,Urine <2.0 mg/dL (<2.0); WBC,Urine 5 /hpf (0-5)
[2023-03-05] MEDS: SODIUM CHLORIDE 0.9% 1,000 ML IV SCH ×2 (00:22→13:38)
[2023-03-05] MEDS: HYDROmorphone 1 MG/ML 1 ML SYRINGE IVP PRN ×4 (06:51→17:03)
--- NOTE | 2023-03-05 11:21 | P.GSCN ---
History of Present Illness Consult date: 03/05/23 History of present illness: 42 yo female known to me for kidney stones. She hasnot had any stone passage for several years. She was last seen by me 01/17/23 with a kub that didnt show any obvious stones. She recently developed flank pain on the left She was in the [facility] er with a 7mm left proximal ureteral stone. We were asked to see the patient. Still having pain. Her stones are calcium oxalate. She wishes something to be done. There has been no fever or chills. Review of Systems All systems: negative - Constitutional Denies fever, Denies weight loss - EENT Eyes: denies blurred vision Ears, nose, mouth and throat: Denies dysphagia - Cardiovascular Denies chest pain, Denies shortness of breath - Respiratory Denies cough, Denies 7 - Gastrointestinal Reports as per HPI - Genitourinary Genitourinary: Denies dysuria, Denies hematuria - Integumentary Denies rash, Denies unusual bruising - Neurological Denies headaches, Denies syncope - Hematologic/Lymphatic Denies easy bleeding, Denies easy bruising Past Medical History Additional Past Medical History / Comment(s): Prior Kidney Stones History of Any Multi-Drug Resistant Organisms: None Reported Additional Past Surgical History / Comment(s): Kidney Stone Removed . wisdom teeth Past Anesthesia/Blood Transfusion Reactions: No Reported Reaction Past Psychological History: Anxiety, Depression Smoking Status: Never smoker Past Alcohol Use History: Occasional Past Drug Use History: None Reported - Past Family History Brother(s) Family Medical History: Cancer Additional Family Medical History / Comment(s): testicular Father Family Medical History: Cancer Additional Family Medical History / Comment(s): mesothelioma Son(s) Family Medical History: Cancer Additional Family Medical History / Comment(s): leukemia Medications and Allergies Home Medications Medication Instructions Recorded Confirmed Type Multivitamins, Thera [Multivitamin 1 tab PO DAILY 01/23/20 03/05/23 History (formulary)] Norlyda 0.35mg 1 tab PO HS 01/23/20 03/05/23 History HYDROcodone/APAP 5-325MG [[place] 1 tab PO Q6HR PRN 3 Days #12 tab 03/03/23 03/05/23 Rx 5-325] Ketorolac [Toradol] 10 mg PO Q6HR PRN #15 tab 03/03/23 03/05/23 Rx Ondansetron Odt [Zofran Odt] 4 mg PO Q8HR PRN #20 tab 03/03/23 03/05/23 Rx Tamsulosin [Flomax] 0.4 mg PO DAILY #10 cap 03/03/23 03/05/23 Rx Potassium Chloride [Klor-Con M15] 15 meq PO BID 03/05/23 03/05/23 History Allergies Allergy/AdvReac Type Severity Reaction Status Date / Time No Known Allergies Allergy Verified 03/05/23 08:06 Surgical - Exam Vital Signs Temp Pulse Resp BP Pulse Ox 100.2 F H 114 H 18 132/78 99 03/04/23 18:26 03/04/23 18:26 03/04/23 18:26 03/04/23 18:26 03/04/23 18:26 - General well developed, well nourished, moderate distress - Eyes normal ocular movement, no icteric - ENT no hearing loss, no congestion - Neck no masses, trachea midline - Respiratory normal respiratory effort, clear to auscultation - Abdomen Abdomen: soft, tender, no guarding, no rigid, no rebound - Integumentary no rash, no abnormal pigmentation - Neurologic no disoriented, no combative - Psychiatric oriented to time, oriented to person, oriented to place, speech is normal, memory intact Results - Labs 03/04/23 18:53 03/04/23 18:53 Abnormal Lab Results - Last 24 Hours (Table) 03/04/23 03/04/23 03/04/23 Range/Units 18:53 18:53 18:53 Neutrophils # 9.0 H (1.3-7.7) k/uL Lymphocytes # 0.7 L (1.0-4.8) k/uL Sodium 134 L (137-145) mmol/L Carbon Dioxide 21 L (22-30) mmol/L BUN 19 H (7-17) mg/dL Creatinine 1.56 H (0.52-1.04) mg/dL Glucose 134 H (74-99) mg/dL Plasma Lactic Acid Jefferson 0.5 L (0.7-2.0) mmol/L Total Protein 5.8 L (6.3-8.2) g/dL Urine Ketones (Negative) Ur Leukocyte Esterase (Negative) Urine Bacteria (None) /hpf Urine Mucus (None) /hpf 03/04/23 Range/Units 23:17 Neutrophils # (1.3-7.7) k/uL Lymphocytes # (1.0-4.8) k/uL Sodium (137-145) mmol/L Carbon Dioxide (22-30) mmol/L BUN (7-17) mg/dL Creatinine (0.52-1.04) mg/dL Glucose (74-99) mg/dL Plasma Lactic Acid Jefferson (0.7-2.0) mmol/L Total Protein (6.3-8.2) g/dL Urine Ketones 1+ H (Negative) Ur Leukocyte Esterase Small H (Negative) Urine Bacteria Rare H (None) /hpf Urine Mucus Rare H (None) /hpf Diabetes panel 03/04/23 Range/Units 18:53 Sodium 134 L (137-145) mmol/L Potassium 3.9 (3.5-5.1) mmol/L Chloride 103 (98-107) mmol/L Carbon Dioxide 21 L (22-30) mmol/L BUN 19 H (7-17) mg/dL Creatinine 1.56 H (0.52-1.04) mg/dL Glucose 134 H (74-99) mg/dL Calcium 8.7 (8.4-10.2) mg/dL AST 31 (14-36) U/L ALT 17 (4-34) U/L Alkaline Phosphatase 47 (38-126) U/L Total Protein 5.8 L (6.3-8.2) g/dL Albumin 3.6 (3.5-5.0) g/dL Calcium panel 03/04/23 Range/Units 18:53 Calcium 8.7 (8.4-10.2) mg/dL Albumin 3.6 (3.5-5.0) g/dL Pituitary panel 03/04/23 Range/Units 18:53 Sodium 134 L (137-145) mmol/L Potassium 3.9 (3.5-5.1) mmol/L Chloride 103 (98-107) mmol/L Carbon Dioxide 21 L (22-30) mmol/L BUN 19 H (7-17) mg/dL Creatinine 1.56 H (0.52-1.04) mg/dL Glucose 134 H (74-99) mg/dL Calcium 8.7 (8.4-10.2) mg/dL Adrenal panel 03/04/23 Range/Units 18:53 Sodium 134 L (137-145) mmol/L Potassium 3.9 (3.5-5.1) mmol/L Chloride 103 (98-107) mmol/L Carbon Dioxide 21 L (22-30) mmol/L BUN 19 H (7-17) mg/dL Creatinine 1.56 H (0.52-1.04) mg/dL Glucose 134 H (74-99) mg/dL Calcium 8.7 (8.4-10.2) mg/dL Total Bilirubin 0.8 (0.2-1.3) mg/dL AST 31 (14-36) U/L ALT 17 (4-34) U/L Alkaline Phosphatase 47 (38-126) U/L Total Protein 5.8 L (6.3-8.2) g/dL Albumin 3.6 (3.5-5.0) g/dL - Imaging CT scan - abdomen: report reviewed, image reviewed CT scan - pelvis: report reviewed, image reviewed Assessment and Plan Assessment: Impression: Left ureteral calculus with colic and obstruction Recommendations: The patient will be set up for left ureteroscopy laser lithotripsy tomorrow.
[2023-03-05] MEDS: MULTIVITAMINS, THERA 1 EACH TAB PO SCH (12:10)
[2023-03-05] MEDS: TAMSULOSIN 0.4 MG CAP.ER.24H PO SCH (12:11)
[2023-03-05] MEDS: ENOXAPARIN 40 MG/0.4 ML SYRINGE SQ SCH (12:12)
[2023-03-05] MEDS: LACTATED RINGERS 1,000 ML IV SCH ×2 (13:43→19:44)
--- NOTE | 2023-03-05 14:33 | P.HPIM ---
History of Present Illness H&P Date: 03/05/23 Chief Complaint: Left flank pain This is a pleasant 42-year-old patient who follows with Dr. Mosquera. More over 20 years patient's had multiple episodes of kidney stones. Patient's had stone extraction including lithotripsy. Patient does follow with urologist Dr. Mahoney. 3 days ago patient started having dullness in the left flank. Symptoms progressed. On March 03 came out of the ER. CT abdomen and pelvis showed mild left hydroureteronephrosis with calculus in the proximal left ureter 7 mm. She was sent home on Flomax and [place]. Toradol. Symptoms do not improve at home and symptoms progressively got worse. Patient presented back to the ER yesterday evening. Hematology was consulted. Having nausea. Low-grade fever. He did be strong colored. She having significant left flank pain. Review of systems: GEN.: Tired EYES: None HEENT: None NECK: None RESPIRATORY: None CARDIOVASCULAR: None GASTROINTESTINAL: As above GENITOURINARY: None MUSCULOSKELETAL: None LYMPHATICS: None HEMATOLOGICAL: None PSYCHIATRY: None NEUROLOGICAL: None Past medical history: Kidney stones with both lithotripsy and stone extraction Social history: Nonsmoker. Smoking occasionally. . Physical examination: VITAL SIGNS: 100.1, 114, 18, 132/78, 99% room air upon presentation GENERAL: BMI 21.9, sitting on bed awake slightly uncomfortable. EYES: Pupils equal. Conjunctiva normal. HEENT: External appearance of nose and ears normal, oral cavity grossly normal. NECK: JVD not raised; masses not palpable. HEART: First and second heart sounds are normal; no edema. LUNGS: Respiratory rate normal; clear to auscultation. ABDOMEN: Soft, renal angle significant tenderness, liver spleen not palpable, no masses palpable. PSYCH: Alert and oriented x3; mood and affect normal. MUSCULOSKELETAL:No Clubbing/cyanosis;muscles-grossly intact NEUROLOGICAL: Cranial nerves grossly intact; no facial asymmetry, power and sensation grossly intact. LYMPHATICS: No lymph nodes palpable in the axilla and neck INVESTIGATIONS, reviewed in the clinical context: White count 10.1 hemoglobin 13.2 platelets 197 sodium 134 potassium 3.9 BUN 19 creatinine 1.56 Previous labs: Creatinine 0.78 on March 03 Assessment and plan: -Acute left hydroureteronephrosis secondary to calculus in the proximal left ureter 7 mm. Patient has failed outpatient treatment. Increasing pain, renal failure and early evidence of infection. Dr. Mahoney from neurology consulted. For surgical intervention for stone extraction tomorrow -Acute kidney injury, ATN, combination of obstruction and infection and also patient getting Toradol. stop renal offensive medication. IV fluids. Follow labs -Possible pyelonephritis from obstructive uropathy. IV Unasyn Care was discussed with the patient. Questions answered. Past Medical History Additional Past Medical History / Comment(s): Prior Kidney Stones History of Any Multi-Drug Resistant Organisms: None Reported Additional Past Surgical History / Comment(s): Kidney Stone Removed . wisdom teeth Past Anesthesia/Blood Transfusion Reactions: No Reported Reaction Past Psychological History: Anxiety, Depression Smoking Status: Never smoker Past Alcohol Use History: Occasional Past Drug Use History: None Reported - Past Family History Brother(s) Family Medical History: Cancer Additional Family Medical History / Comment(s): testicular Father Family Medical History: Cancer Additional Family Medical History / Comment(s): mesothelioma Son(s) Family Medical History: Cancer Additional Family Medical History / Comment(s): leukemia Medications and Allergies Home Medications Medication Instructions Recorded Confirmed Type Multivitamins, Thera [Multivitamin 1 tab PO DAILY 01/23/20 03/05/23 History (formulary)] Norlyda 0.35mg 1 tab PO HS 01/23/20 03/05/23 History HYDROcodone/APAP 5-325MG [[place] 1 tab PO Q6HR PRN 3 Days #12 tab 03/03/23 03/05/23 Rx 5-325] Ketorolac [Toradol] 10 mg PO Q6HR PRN #15 tab 03/03/23 03/05/23 Rx Ondansetron Odt [Zofran Odt] 4 mg PO Q8HR PRN #20 tab 03/03/23 03/05/23 Rx Tamsulosin [Flomax] 0.4 mg PO DAILY #10 cap 03/03/23 03/05/23 Rx Potassium Chloride [Klor-Con M15] 15 meq PO BID 03/05/23 03/05/23 History Allergies Allergy/AdvReac Type Severity Reaction Status Date / Time No Known Allergies Allergy Verified 03/05/23 08:06 Physical Exam Vitals: Vital Signs Temp Pulse Resp BP Pulse Ox 03/05/23 09:00 100 17 114/65 98 03/05/23 06:00 107 H 18 114/65 99 03/05/23 00:31 99.3 F 96 18 98 03/04/23 22:39 100.1 F H 103 H 18 137/76 100 03/04/23 18:26 100.2 F H 114 H 18 132/78 99 Intake and Output 03/04/23 03/05/23 03/05/23 22:59 06:59 14:59 Other: Weight 54.431 kg Results CBC & Chem 7: 03/04/23 18:53 03/04/23 18:53 Labs: Abnormal Lab Results - Last 24 Hours (Table) 03/04/23 03/04/23 03/04/23 Range/Units 18:53 18:53 18:53 Neutrophils # 9.0 H (1.3-7.7) k/uL Lymphocytes # 0.7 L (1.0-4.8) k/uL Sodium 134 L (137-145) mmol/L Carbon Dioxide 21 L (22-30) mmol/L BUN 19 H (7-17) mg/dL Creatinine 1.56 H (0.52-1.04) mg/dL Glucose 134 H (74-99) mg/dL Plasma Lactic Acid Jefferson 0.5 L (0.7-2.0) mmol/L Total Protein 5.8 L (6.3-8.2) g/dL Urine Ketones (Negative) Ur Leukocyte Esterase (Negative) Urine Bacteria (None) /hpf Urine Mucus (None) /hpf 03/04/23 Range/Units 23:17 Neutrophils # (1.3-7.7) k/uL Lymphocytes # (1.0-4.8) k/uL Sodium (137-145) mmol/L Carbon Dioxide (22-30) mmol/L BUN (7-17) mg/dL Creatinine (0.52-1.04) mg/dL Glucose (74-99) mg/dL Plasma Lactic Acid Jefferson (0.7-2.0) mmol/L Total Protein (6.3-8.2) g/dL Urine Ketones 1+ H (Negative) Ur Leukocyte Esterase Small H (Negative) Urine Bacteria Rare H (None) /hpf Urine Mucus Rare H (None) /hpf
[2023-03-05] MEDS: HYDROcodone/APAP 5-325MG 1 EACH TAB PO PRN ×2 (16:38→22:32)
[2023-03-05] MEDS: POTASSIUM CITRATE 5 MEQ TABLET.ER PO SCH (19:40)
[2023-03-05] MEDS: AMPICILLIN-SULBACTAM 1.5 GM in SODIUM CHLORIDE 0.9% 50 ML IVPB SCH (19:41)
[2023-03-05] MEDS ORDERED: NORETHINDRONE 0.35 MG PO SCH (21:00)
[2023-03-06] MEDS: AMPICILLIN-SULBACTAM 1.5 GM in SODIUM CHLORIDE 0.9% 50 ML IVPB SCH ×2 (01:23→05:58)
[2023-03-06] MEDS: HYDROmorphone 1 MG/ML 1 ML SYRINGE IVP PRN ×3 (02:12→11:20)
[2023-03-06] MEDS: LACTATED RINGERS 1,000 ML IV SCH (02:13)
[2023-03-06 07:13] LABS: Basophils % (A) 0 %; Eosinophils # (A) 0.1 k/uL (0-0.7); Eosinophils % (A) 1 %; HCT 34.1 % (34.0-46.0); HGB 11.6 gm/dL (11.4-16.0); Lymphocytes # (A) 0.8 k/uL (1.0-4.8); Lymphocytes % (A) 10 %; MCH 30.9 pg (25.0-35.0); MCV 90.9 fL (80.0-100.0); Mean Platelet Volume 7.6; Monocytes # (A) 0.3 k/uL (0-1.0); Monocytes % (A) 4 %; Neutrophils # (A) 6.9 k/uL (1.3-7.7); Neutrophils % (A) 84 %; Platelet Count 178 k/uL (150-450); RBC 3.75 m/uL (3.80-5.40); RDW 12.7 % (11.5-15.5); WBC 8.3 k/uL (3.8-10.6)
[2023-03-06 07:22] LABS: African American GFR (CKD) 58 (>60 ml/min/1.73 sqM); Anion Gap 9 mmol/L; Blood Urea Nitrogen 15 mg/dL (7-17); Calcium 8.2 mg/dL (8.4-10.2); Carbon Dioxide 20 mmol/L (22-30); Chloride 105 mmol/L (98-107); Glucose 83 mg/dL (74-99); Non-African American GFR(CKD) 51 (>60 ml/min/1.73 sqM); Potassium 4.3 mmol/L (3.5-5.1); Sodium 134 mmol/L (137-145)
[2023-03-06] MEDS ORDERED: LACTATED RINGERS 1,000 ML IV SCH (07:28)
[2023-03-06] MEDS ORDERED: ONDANSETRON 4 MG/2 ML VIAL IVP ONE (07:28)
[2023-03-06] MEDS ORDERED: HYDROmorphone 0.5 MG/0.5 ML SYRINGE IVP PRN (07:28)
[2023-03-06] MEDS ORDERED: DEXAMETHASONE SOD PHOSPHATE 4 MG/ML 1 ML VIAL IV ONE (07:28)
[2023-03-06] MEDS ORDERED: droPERidol 5 MG/2 ML VIAL IVP ONE (07:28)
[2023-03-06] MEDS: ENOXAPARIN 40 MG/0.4 ML SYRINGE SQ SCH (07:46)
[2023-03-06] MEDS: POTASSIUM CITRATE 5 MEQ TABLET.ER PO SCH (07:46)
[2023-03-06] MEDS: MULTIVITAMINS, THERA 1 EACH TAB PO SCH (07:46)
[2023-03-06] MEDS: TAMSULOSIN 0.4 MG CAP.ER.24H PO SCH (08:00)
[2023-03-06] MEDS: HYDROcodone/APAP 5-325MG 1 EACH TAB PO PRN ×2 (08:28→16:08)
[2023-03-06] MEDS ORDERED: diphenhydrAMINE 50 MG/ML 1 ML VIAL ONE (13:15)
[2023-03-06] MEDS ORDERED: FAMOTIDINE 20 MG/2 ML VIAL IVP ONE (13:27)
[2023-03-06] MEDS ORDERED: diphenhydrAMINE 50 MG/ML 1 ML VIAL IVP ONE (13:27)
[2023-03-06] MEDS ORDERED: KETAMINE HCL IN 0.9 % NACL 50 MG/5 ML SYRINGE ONE (13:33)
[2023-03-06] MEDS ORDERED: LIDOCAINE 1% INJ 10MG/ML (20 ML MDV) ONE (13:33)
[2023-03-06] MEDS ORDERED: PROPOFOL 10 MG/ML 20 ML VIAL IV ONE (13:33)
[2023-03-06] MEDS ORDERED: fentaNYL (PF) 50 MCG/ML 2 ML AMP ONE (13:33)
[2023-03-06] MEDS ORDERED: MIDAZOLAM 2 MG/2 ML VIAL ONE (13:33)
--- NOTE | 2023-03-06 14:30 | P.OP ---
Date of Procedure: 03/06/23 Preoperative Diagnosis: Left ureteral calculus Postoperative Diagnosis: Same Procedure(s) Performed: Cystoscopy, left ureteroscopy with laser lithotripsy, placement of 624 stent Anesthesia: ALEJANDRA Surgeon: Chriss Fox Estimated Blood Loss (ml): 10 Pathology: other Condition: stable (Stone) Disposition: PACU Indications for Procedure: Patient is 42. She has kidney stone disease. She has not passed a stone for over 3 years but recently on [place] Padmini passed a stone in the proximal ureter, 7 mm. The pain persisted she ended up in the emergency room twice and was admitted. She now comes for stone removal process Description of Procedure: Patient brought operating suite. Given general anesthesia. Placed lithotomy position with sterile prep and drape. Under fluoroscopy the stone is seen near the left proximal ureter. Cystoscopy Foroblique lens and 21-Divehi sheath identifies normal urethra. Bladder oliver unremarkable. The left renal orifice is intubated with a semirigid scope and I cannot get it to the stone. Through the scope I then pass an 035 wire by the obstructing stone which is quite impacted. I removed the ureteroscope and over the wire pass a 32-43-[id number] reentry sheath. The stone dislodges and falls back into the renal pelvis. I then advanced the sheath up into the left kidney. I removed the inner sheath and passed the flexible ureteroscope up into the kidney. The stone was seen. It is broken into tiny sand. The largest fragment is basketed and sent to pathology. Pullout ureteroscopy identifies significant edema the proximal ureter this a stent will be placed. An 035 wires passed up the ureter and over the wires passed a 6 x 24 double-J cath that coils in the renal pelvis and the bladder bladder strain the patient is awakened and returned recovery room good condition. She can be discharged home later today and follow in the office in one week with stent removal
--- NOTE | 2023-03-06 15:07 | FL ---
EXAMINATION TYPE: FL guidance operating room Intraoperative/procedural fluoroscopic services were pro vided. Total fluoroscopy time is 1 minute 27 seconds with a total of 6 submitted images to PACS. Plea se see the operative/procedural note for further details. DAP: 5.3884 Gycm2
[2023-03-06 15:33] VITALS: TEMP 98.3
[2023-03-06 17:13] LABS: African American GFR (CKD) 80 (>60 ml/min/1.73 sqM); Anion Gap 11 mmol/L; Blood Urea Nitrogen 12 mg/dL (7-17); Calcium 8.4 mg/dL (8.4-10.2); Carbon Dioxide 21 mmol/L (22-30); Chloride 105 mmol/L (98-107); Glucose 110 mg/dL (74-99); Non-African American GFR(CKD) 70 (>60 ml/min/1.73 sqM); Potassium 4.7 mmol/L (3.5-5.1); Sodium 137 mmol/L (137-145)
[2023-03-06 17:27] VITALS: BP 113/69; PULSE 90; RESP 16
--- NOTE | 2023-03-06 20:40 | P.DS ---
Providers Date of admission: 03/06/23 08:29 Expected date of discharge: 03/06/23 Attending physician: Stone London Consults: 03/04/23 23:52 Consult Physician Urgent Consulting Provider: Chriss Fox Consult Reason/Comments: Left ureteral calculus, intractable pain Do you want consulting provider notified?: Yes Primary care physician: [facility] Course: Chief Complaint: Left flank pain This is a pleasant 42-year-old patient who follows with Dr. Mosquera. More over 20 years patient's had multiple episodes of kidney stones. Patient's had stone extraction including lithotripsy. Patient does follow with urologist Dr. Mahoney. 3 days ago patient started having dullness in the left flank. Symptoms progressed. On March 03 came out of the ER. CT abdomen and pelvis showed mild left hydroureteronephrosis with calculus in the proximal left ureter 7 mm. She was sent home on Flomax and [place]. Toradol. Symptoms do not improve at home and symptoms progressively got worse. Patient presented back to the ER yesterday evening. Hematology was consulted. Having nausea. Low-grade fever. He did be strong colored. She having significant left flank pain. 03/06/2023: Dr. Mahoney placed a left-sided stent and lithotripsy of the stone was carried out. Postprocedure patient is doing well. Creatinine down to 0.99. Complete a course of Augmentin given suspicion for pyelonephritis from above. Patient follows with Dr. Mahoney in one week's time. Past medical history: Kidney stones with both lithotripsy and stone extraction Social history: Nonsmoker. Smoking occasionally. . Physical examination: VITAL SIGNS: 98.3, 90, 16, 103 with 69, GENERAL: Comfortable EYES: Pupils equal. Conjunctiva normal. HEENT: External appearance of nose and ears normal, oral cavity grossly normal. NECK: JVD not raised; masses not palpable. HEART: First and second heart sounds are normal; no edema. LUNGS: Respiratory rate normal; clear to auscultation. ABDOMEN: Soft, , liver spleen not palpable, no masses palpable. PSYCH: Alert and oriented x3; mood and affect normal. MUSCULOSKELETAL:No Clubbing/cyanosis;muscles-grossly intact INVESTIGATIONS, reviewed in the clinical context: March 06: Creatinine 0.99 White count 10.1 hemoglobin 13.2 platelets 197 sodium 134 potassium 3.9 BUN 19 creatinine 1.56 Previous labs: Creatinine 0.78 on March 03 Assessment and plan: -Acute left hydroureteronephrosis secondary to calculus in the proximal left ureter 7 mm. Patient has failed outpatient treatment. Increasing pain, renal failure and early evidence of infection. Dr. Mahoney : left-sided ureter stent and lithotripsy carried out He'll follow-up in one week to remove the stent. -Acute kidney injury, ATN, combination of obstruction and infection and also patient getting Toradol.: Resolved stop renal offensive medication. IV fluids. Follow labs -Possible pyelonephritis from obstructive uropathy. IV Unasyn 9 Discharge in Augmentin for 7 days Disposition: Home Past Medical History Additional Past Medical History / Comment(s): Prior Kidney Stones History of Any Multi-Drug Resistant Organisms: None Reported Additional Past Surgical History / Comment(s): Kidney Stone Removed . wisdom teeth Past Anesthesia/Blood Transfusion Reactions: No Reported Reaction Past Psychological History: Anxiety, Depression Smoking Status: Never smoker Past Alcohol Use History: Occasional Past Drug Use History: None Reported Plan - Discharge Summary New Discharge Prescriptions: New Acetaminophen Tab [Tylenol] 650 mg PO Q6HR PRN tab PRN Reason: Mild Pain Or Fever > 100.5 Amoxic-Pot Clav 875-125Mg [Augmentin 875-125] 1 tab PO BID 1 Days #14 tab Continue Multivitamins, Thera [Multivitamin (formulary)] 1 tab PO DAILY Norlyda 0.35mg 1 tab PO HS HYDROcodone/APAP 5-325MG [[place] 5-325] 1 tab PO Q6HR PRN 3 Days #12 tab PRN Reason: Pain Potassium Chloride [Klor-Con M15] 15 meq PO BID Tamsulosin [Flomax] 0.4 mg PO DAILY #10 cap Ondansetron Odt [Zofran ODT] 4 mg PO Q8HR PRN #20 tab PRN Reason: Nausea And Vomiting Discontinued Ketorolac [Toradol] 10 mg PO Q6HR PRN #15 tab PRN Reason: Pain Discharge Medication List Multivitamins, Thera [Multivitamin (formulary)] 1 tab PO DAILY 01/23/20 [History] Norlyda 0.35mg 1 tab PO HS 01/23/20 [History] HYDROcodone/APAP 5-325MG [[place] 5-325] 1 tab PO Q6HR PRN 3 Days #12 tab 03/03/23 [Rx] Ondansetron Odt [Zofran ODT] 4 mg PO Q8HR PRN #20 tab 03/03/23 [Rx] Tamsulosin [Flomax] 0.4 mg PO DAILY #10 cap 03/03/23 [Rx] Potassium Chloride [Klor-Con M15] 15 meq PO BID 03/05/23 [History] Acetaminophen Tab [Tylenol] 650 mg PO Q6HR PRN tab 03/06/23 [Rx] Amoxic-Pot Clav 875-125Mg [Augmentin 875-125] 1 tab PO BID 1 Days #14 tab 03/06/23 [Rx] Follow up Appointment(s)/Referral(s): Stefan Mosquera DO [Primary Care Provider] - 1-2 days Chriss Fox MD [STAFF PHYSICIAN] - 1 Week (Cystoscopy and stent removal) Discharge Disposition: HOME SELF-CARE
== END 2023-03-06 18:30 | disposition home or self-care (01) | DRG 661 ==
LOC: EC 18:23 → 6NMEDSUR 23:54 → OBSVTOIN 03-06 08:29 → 4FBP 03-06 12:53
PROVIDERS: ADMIT Hospitalist; ATTEND Hospitalist
PROC: 0T778DZ Dilation of Left Ureter with Intraluminal Device, Via Natural or Artificial Opening Endoscopic (ICD-10-PCS; principal; 2023-03-06 07:30)
PROC: 0TC78ZZ Extirpation of Matter from Left Ureter, Via Natural or Artificial Opening Endoscopic (ICD-10-PCS; 2023-03-06 07:30)
DX: N13.2 Hydronephrosis with renal and ureteral calculous obstruction (principal); N10 Acute pyelonephritis; N17.0 Acute kidney failure with tubular necrosis; Z87.442 Personal history of urinary calculi; Z79.899 Other long term (current) drug therapy; Z28.310 Unvaccinated for COVID-19
CPT/HCPCS: 36415; 80048; 80053; 81001; 81025; 82365; 83605; 85025; 96361; 96372; 96374; 96375; 96376; 99285

== ENCOUNTER → 2023-03-20 | Outpatient (CLI) | payer BC ==
--- NOTE | 2023-03-24 15:16 | MM ---
Reason for Exam: Screening (asymptomatic). Last screening mammogram was performed 12 month(s) ago. Patient History: Menarche at age 11. First Full-Term at age 30. Late child-bearing (after 30). Premenopausal. Currently using Hormonal Contraceptives, beginning at age 30 for 5 years. Maternal grandmother had breast cancer. Last menstrual period: 03/06/2023 Risk Values: Svetlana 5 year model risk: 1.1%. NCI Lifetime model risk: 13.1%. Prior Study Comparison: 07/13/2016 Bilateral Diagnostic Mammogram, [facility]. 01/03/2021 Bilateral Screening Mammogram, [facility]. 04/02/2022 Bilateral MG 3D screening mammo w/cad, [facility]. Tissue Density: The breast tissue is extremely dense which could obscure a lesion on mammography. Findings: Analyzed By CAD. The pattern is symmetrical and stable. No significant interval changes. No suspicious groups of microcalcifications, spiculated or lobular masses, architectural distortion or other secondary signs of malignancy are mammographically apparent. Overall Assessment: Negative, BI-RAD 1 Management: Screening Mammogram of both breasts in 1 year. A negative mammogram report should not preclude additional follow up of suspicious palpable abnormalities. Patient should continue monthly self breast exam. A clinical breast exam by your physician is recommended on an annual basis and results should be correlated with mammographic findings. Electronically signed and approved by: Stefan Miller D.O. Radiologis
== END | disposition home or self-care (01) ==
LOC: RADMAMWWP 07:40
PROVIDERS: ATTEND Obstetrics & Gynecology
DX: Z12.31 Encounter for screening mammogram for malignant neoplasm of breast (principal); Z80.3 Family history of malignant neoplasm of breast
CPT/HCPCS: 77063; 77067

== ENCOUNTER → 2023-08-30 | Outpatient (CLI) | payer BC ==
--- NOTE | 2023-08-31 16:51 | XR ---
EXAMINATION TYPE: XR KUB DATE OF EXAM: 08/30/2023 COMPARISON: 01/17/2023 INDICATION: Renal calculus TECHNIQUE: Single view abdomen FINDINGS: Normal bowel gas pattern is be present through the colon. Psoas margins are normal. No organomegaly is present. Tiny calcification in left hemipelvis likely phlebolith present previously. IMPRESSION: 1. Unremarkable Abdomen
== END | disposition home or self-care (01) ==
LOC: RADXRMAIN 11:26
PROVIDERS: ATTEND Urology
DX: N20.0 Calculus of kidney (principal)
CPT/HCPCS: 74018

== ENCOUNTER → 2024-03-25 | Outpatient (CLI) | payer BC ==
--- NOTE | 2024-03-25 11:47 | XR ---
EXAMINATION TYPE: XR KUB DATE OF EXAM: 03/25/2024 11:38 AM COMPARISON: None. CLINICAL INDICATION: Female, 43 years old with history of N20.0 CALCULUS OF KIDNEY, TECHNIQUE: XR KUB view(s) obtained. FINDINGS: There is a normal bowel gas pattern. Psoas margins are normal. No organomegaly is present. a tiny calcification may remain present within the pelvis IMPRESSION: 1. Unremarkable Abdomen 2. Stable punctate left hemipelvis calcification [facility], , 03/25/2024 11:44 AM
== END | disposition home or self-care (01) ==
LOC: RADXRMAIN 11:25
PROVIDERS: ATTEND Urology
DX: N20.0 Calculus of kidney (principal); N28.89 Other specified disorders of kidney and ureter
CPT/HCPCS: 74018

== ENCOUNTER → 2024-04-01 | Outpatient (CLI) | payer BC ==
--- NOTE | 2024-04-01 13:01 | MM ---
Reason for Exam: Screening (asymptomatic). Last screening mammogram was performed 12 month(s) ago. Patient History: Menarche at age 11. First Full-Term at age 30. Late child-bearing (after 30). Premenopausal. Hormonal Contraceptives, starting at age 30 for 5 years. Maternal grandmother had breast cancer. Risk Values: Svetlana 5 year model risk: 1.1%. NCI Lifetime model risk: 13.0%. Prior Study Comparison: 01/03/2021 Bilateral Screening Mammogram, [facility]. 04/02/2022 Bilateral MG 3D screening mammo w/cad, [facility]. 03/20/2023 Bilateral MG 3D screening mammo w/cad, [facility]. Tissue Density: The breasts are heterogeneously dense, which may obscure small masses. Findings: Analyzed By CAD. There is no suspicious group of microcalcifications or new suspicious mass in either breast. Overall Assessment: Benign, BI-RAD 2 Management: Screening Mammogram of both breasts in 1 year. Patient should continue monthly self-breast exams. A clinical breast exam by your physician is recommended on an annual basis. This exam should not preclude additional follow-up of suspicious palpable abnormalities. Note on Svetlana scores and lifetime risk: 1. A Svetlana score greater than 3% is considered moderate risk. If this is the case, consider specialist referral to assess eligibility for a risk reducing agent. 2. If overall lifetime risk for the development of breast cancer is 20% or higher, the patient may qualify for future screening with alternating mammogram and breast MRI. [facility], , 04/01/2024 12:58 PM. Electronically signed and approved by: Devin Pantoja M.D. Radiologist
== END | disposition home or self-care (01) ==
LOC: RADMAMWWP 12:38
PROVIDERS: ATTEND Obstetrics & Gynecology
DX: Z12.31 Encounter for screening mammogram for malignant neoplasm of breast (principal); Z80.3 Family history of malignant neoplasm of breast; R92.333 Mammographic heterogeneous density, bilateral breasts
CPT/HCPCS: 77063; 77067

== ENCOUNTER 2024-06-10 09:22 | Day surgery (SDC) | payer BC ==
[2024-06-09 09:16] VITALS: BMI 21.5
[2024-06-10] MEDS: IV FLUID CONTINUATION 1,000 ML IV ONE (09:43)
[2024-06-10 09:51] VITALS: TEMP 97.6
[2024-06-10] MEDS: LACTATED RINGERS 1,000 ML IV SCH (09:55)
[2024-06-10] MEDS ORDERED: PROPOFOL 10 MG/ML 20 ML VIAL IV ONE (10:24)
--- NOTE | 2024-06-10 10:48 | P.PCN ---
Date of Procedure: 06/10/24 Procedure(s) Performed: BRIEF HISTORY: Patient is a 43-year-old pleasant white female scheduled for an elective colonoscopy as a part of screening for colon cancer. PROCEDURE PERFORMED: Colonoscopy. PREOPERATIVE DIAGNOSIS: Screening for colon cancer. IV sedation per Anesthesia. PROCEDURE: After informed consent was obtained, the patient, was brought into the endoscopy unit. IV sedation was administered by Anesthesia under continuous monitoring. Digital rectal examination was normal. Initially the Olympus CF-160 flexible video colonoscope was then inserted in the rectum, gradually advanced into the cecum without any difficulty. Careful examination was performed as the scope was gradually being withdrawn. Ileocecal valve and the appendiceal orifice were visualized and appeared normal. Prep was excellent. Mucosa of the cecum, ascending colon, transverse colon, descending colon, sigmoid colon, and rectum appeared normal. Retroflexion was performed in the rectum and no lesions were seen. The patient tolerated the procedure well. IMPRESSION: Normal-appearing colon from rectum to cecum with no evidence of colorectal neoplasia. RECOMMENDATIONS: Findings of this examination were discussed with the patient as well as her family. She was advised to have repeat screening colonoscopy in 10 years..
[2024-06-10 10:54] VITALS: RESP 16
[2024-06-10 11:16] VITALS: BP 103/45; PULSE 87
== END 2024-06-10 11:33 | disposition home or self-care (01) ==
LOC: ORWHC2ENDO 09:22
PROVIDERS: ATTEND Internal Medicine Gastroenterology
DX: Z12.11 Encounter for screening for malignant neoplasm of colon (principal)
CPT/HCPCS: 81025; 45378; J2704